=== PATIENT | female | born 1930 | race Caucasian/White ===

== ENCOUNTER 2017-01-26 01:45 | Inpatient (IN) | payer OTHER ==
--- NOTE | 2017-01-26 02:37 | PDOC ---
History of Present Illness - General Stated Complaint: LOW BACK PAIN Time Seen by Provider: 01/26/17 02:31 History Source: Patient Exam Limitations: No Limitations - History of Present Illness Initial Comments: 01/26/17 02:53 87-year-old female with a history of hypertension presents to the emergency department complaining of right sided lumbar paravertebral tenderness. Pain is described as 8/10 dull nonradiating intermittent discomfort. Patient states she slipped and fell 2 days ago when she reached forward to grab her hamper. Patient denies any head injuries, dizziness, lightheadedness, headaches, facial pain, neck pains, chest pain, shortness of breath, abdominal pains, bladder or bowel dysfunction, Antony numbness or tingling sensation. The pain is exacerbated with movement and there are minimal relief at rest. Occurred: reports: this evening Pain Location: reports: abdomen, chest Past History - Past Medical History Allergies/Adverse Reactions: Allergies Allergy/AdvReac Type Severity Reaction Status Date / Time No Known Drug Allergies Allergy Verified 01/26/17 03:06 Home Medications: Ambulatory Orders Aspirin [Baby Aspirin] 81 mg PO DAILY 02/27/11 Amlodipine/Valsartan [Amlodipine-Valsartan 10-160 mg] 1 each PO HS 07/26/15 Atorvastatin Ca [Lipitor] 20 mg PO HS 07/26/15 Cholecalciferol (Vitamin D3) [Vitamin D3 -] 1,000 unit PO HS 07/26/15 Metoprolol Succinate [Toprol Xl -] 25 mg PO HS 07/26/15 Anemia: No Asthma: No Cancer: Yes (LEFT BREAST 1981,RADICAL MASTECTOMY,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;BASAL CELL NOSE) Cardiac Disorders: No CVA: Yes (TIA 2013) COPD: No CHF: No Dementia: No Diabetes: No GI Disorders: No Disorders: No HTN: Yes (2005) Hypercholesterolemia: Yes (2005) Liver Disease: No Seizures: No Thyroid Disease: No - Surgical History Abdominal Surgery: No Appendectomy: No Cardiac Surgery: No Cholecystectomy: No Lung Surgery: No Neurologic Surgery: No Orthopedic Surgery: No - Suicide/Smoking/Psychosocial Hx Smoking History: Never smoked Have you smoked in the past 12 months: No Hx Alcohol Use: No Drug/Substance Use Hx: No Substance Use Type: None Hx Substance Use Treatment: No Review of Systems - Review of Systems Able to Perform ROS?: Yes Comments:: 01/26/17 02:56 CONSTITUTIONAL: Absent: fever, chills, diaphoresis, generalized weakness, malaise, loss of appetite HEENT: Absent: rhinorrhea, nasal congestion, throat pain, throat swelling, difficulty swallowing, mouth swelling, ear pain, eye pain, visual Changes CARDIOVASCULAR: Absent: chest pain, loss of consciousness, palpitations, irregular heart rate, peripheral edema RESPIRATORY: Absent: cough, shortness of breath, dyspnea with exertion, orthopnea, wheezing, stridor, hemoptysis GASTROINTESTINAL: Absent: abdominal pain, abdominal distension, nausea, vomiting, diarrhea, constipation, melena, hematochezia GENITOURINARY: Absent: dysuria, frequency, urgency, hesitancy, hematuria, flank pain, genital pain MUSCULOSKELETAL: Lumbar pain/right para vertebral Absent: myalgia, arthralgia, joint swelling SKIN: Absent: rash, itching, pallor HEMATOLOGIC/IMMUNOLOGIC: Absent: easy bleeding, easy bruising, lymphadenopathy, frequent infections ENDOCRINE: Absent: unexplained weight gain, unexplained weight loss, heat intolerance, cold intolerance NEUROLOGIC: Absent: headache, focal weakness or paresthesias, dizziness, unsteady gait, seizure, mental status changes, bladder or bowel incontinence PSYCHIATRIC: Absent: anxiety, depression, suicidal or homicidal ideation, hallucinations. Is the patient limited Czech proficient: No *Physical Exam - Physical Exam Comments: 01/26/17 02:56 GENERAL: Well developed, well nourished. Awake and alert. No acute distress. HEENT: Normocephalic, atraumatic. PERRLA, EOMI. No conjunctival pallor. Sclera are non- icteric. Moist mucous membranes. Oropharynx is clear. NECK: Supple. Full ROM. No JVD. Carotid pulses 2+ and symmetric, without bruits. No thyromegaly. No lymphadenopathy. CARDIOVASCULAR: Regular rate and rhythm. No murmurs, rubs, or gallops. Distal pulses are 2+ and symmetric. PULMONARY: No evidence of respiratory distress. Lungs clear to auscultation bilaterally. No wheezing, rales or rhonchi. ABDOMINAL: Soft. Non-tender. Non-distended. No rebound or guarding. No organomegaly. Normoactive bowel sounds. MUSCULOSKELETAL Right paravertebral lumbar pain Normal range of motion at all joints. No bony deformities or tenderness. No CVA tenderness. EXTREMITIES: No cyanosis. No clubbing. No edema. No calf tenderness. SKIN: Warm and dry. Normal capillary refill. No rashes. No jaundice. NEUROLOGICAL: Alert, awake, appropriate. Cranial nerves 2-12 intact. No deficits to light touch and temperature in face, upper extremities and lower extremities. No motor deficits in the in face, upper extremities and lower extremities. Normoreflexic in the upper and lower extremities. Normal speech. Toes are down- going bilaterally. Gait is normal without ataxia. PSYCHIATRIC: Cooperative. Good eye contact. Appropriate mood and affect. ED Treatment Course - LABORATORY CBC & Chemistry Diagram: 01/26/17 05:24 01/26/17 05:00 - RADIOLOGY Radiograph Interpretation: 01/26/17 03:00 XRAY; LS spine 01/26/17 04:15 cxr 2v nad Progress Note - Progress Note Progress Note: 0615hrs: Spoke to Dr. Tiffanie Worley. will admit *DC/Admit/Observation/Transfer Diagnosis at time of Disposition: Intractable low back pain - Discharge Dispostion Condition at time of disposition: Guarded Admit: Yes - Referrals Referrals: Ziggy Saunders MD [Primary Care Provider] - - Patient Instructions - Post Discharge Activity
[2017-01-26] MEDS ORDERED: KETOROLAC TROMETHAMINE 30 MG/1 ML VIAL IM ONE (03:22)
[2017-01-26] MEDS ORDERED: KETOROLAC TROMETHAMINE 30 MG/1 ML VIAL ONE (04:16)
[2017-01-26] MEDS ORDERED: morphine CARPU-JECT 8 MG/1 ML DISP.SYRIN IVPUSH ONE (04:35)
[2017-01-26 05:35] LABS: ALBUMIN 3.4 g/dl (3.4-5.0); ANION GAP 10 (8-16); BILIRUBIN,TOTAL 0.8 mg/dL (0.2-1.0); CALCIUM 8.8 mg/dL (8.5-10.1); CO2 24 mmol/L (21-32); GLUCOSE,RANDOM 112 mg/dL (74-106); SGPT/ALT 23 U/L (12-78); TOT PROT 6.8 g/dl (6.4-8.2)
[2017-01-26 05:36] LABS: ALK PHOS 77 U/L (45-117)
[2017-01-26 05:40] LABS: BASO % 0.6 % (0-2.0); EOS % 3.2 % (0-4.5); MCH 31.6 pg (25.7-33.7); MCHC 34.1 g/dl (32.0-36.0); MEAN CELL VOLUME 92.5 fl (80-96); MEAN PLT VOLUME 7.5 fl (7.5-11.1); PLATELET COUNT 138 K/MM3 (134-434); RDW 13.3 % (11.6-15.6); WHITE BLOOD COUNT 5.6 K/mm3 (4.0-10.0)
[2017-01-26 05:45] LABS: SGOT/AST 22 U/L (15-37)
[2017-01-26] MEDS ORDERED: ACETAMINOPHEN 325 MG TABLET (FP) PO PRN (07:52)
[2017-01-26] MEDS ORDERED: HYDROmorphone HCL CARPU-JECT 2 MG/1 ML DISP.SYRIN IM PRN (07:52)
--- NOTE | 2017-01-26 08:56 | HP ---
Admitting History and Physical - Admission History of Present Illness: 87-year-old female with a history of hypertension presents to the emergency department complaining of right sided lumbar paravertebral tenderness. Pain is described as 8/10 dull nonradiating intermittent discomfort. Patient states she slipped and fell 2 days ago when she reached forward to grab her hamper. Patient denies any head injuries, dizziness, lightheadedness, headaches, facial pain, neck pains, chest pain, shortness of breath, abdominal pains, bladder or bowel dysfunction. The pain is exacerbated with movement and there are minimal relief at rest. - Past Medical History Cardiovascular: Yes: HTN, Hyperlipdemia Musculoskeletal: Yes: Osteoarthritis - Smoking History Smoking history: Never smoked Have you smoked in the past 12 months: No - Alcohol/Substance Use Hx Alcohol Use: No Home Medications - Allergies Allergies/Adverse Reactions: Allergies Allergy/AdvReac Type Severity Reaction Status Date / Time No Known Drug Allergies Allergy Verified 01/26/17 03:06 - Home Medications Home Medications: Ambulatory Orders Aspirin [Baby Aspirin] 81 mg PO DAILY 02/27/11 Amlodipine/Valsartan [Amlodipine-Valsartan 10-160 mg] 1 each PO HS 07/26/15 Atorvastatin Ca [Lipitor] 20 mg PO HS 07/26/15 Cholecalciferol (Vitamin D3) [Vitamin D3 -] 1,000 unit PO HS 07/26/15 Metoprolol Succinate [Toprol Xl -] 25 mg PO HS 07/26/15 Review of Systems - Review of Systems Cardiovascular: denies: Chest Pain Respiratory: denies: SOB Gastrointestinal: denies: Abdominal Pain Musculoskeletal: reports: Back Pain Physical Examination Vital Signs: Vital Signs Temperature 98.3 F 01/26/17 07:26 Pulse Rate 62 01/26/17 07:26 Respiratory Rate 20 01/26/17 07:26 Blood Pressure 135/88 01/26/17 07:26 O2 Sat by Pulse Oximetry (%) 98 01/26/17 07:26 Cardiovascular: Yes: Regular Rate and Rhythm Respiratory: Yes: Regular, CTA Bilaterally Gastrointestinal: Yes: Normal Bowel Sounds, Soft Musculoskeletal: Yes: Back Pain, Muscle Weakness (OF LE) Labs: CBC, BMP 01/26/17 05:24 01/26/17 05:00 Imaging - Results X-ray: Report Reviewed ([facility]) Problem List - Problems (1) Compression fracture Assessment/Plan: MRI NEURO CONSULT Code(s): PQJ0373 - (2) HTN (hypertension) Assessment/Plan: Vital Signs Period Temp Pulse Resp BP Sys/Parra Pulse Ox Last 24 Hr 97.7 F-98.3 F 61-85 14-20 135-177/76-88 96-98 Code(s): I10 - ESSENTIAL (PRIMARY) HYPERTENSION (3) Intractable low back pain Assessment/Plan: PAIN MEDS MUSCLE RELAXANT MRI Code(s): M54.5 - LOW BACK PAIN
[2017-01-26] MEDS ORDERED: PT OWN MED DRAWER 7, Y5N ONE (10:52)
[2017-01-26] MEDS: ASPIRIN 81 MG CHEWABLE TABLETS PO SCH (10:56)
[2017-01-26] MEDS: HEPARIN NA (PORCINE) 5,000 UNITS/ML 1ML VIAL SQ SCH ×2 (10:56→21:33)
[2017-01-26 11:49] VITALS: BMI 27.3
[2017-01-26] MEDS: CYCLOBENZAPRINE HCL 10 MG TABLET (FP) PO SCH ×2 (14:09→21:32)
--- NOTE | 2017-01-26 14:44 | CON.NEURO ---
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 She do have stress incontinence and uses diaper. Patient having moderate to severe back pain but no shooting down to legs. She denies any bowel pain. She had xray done and there is no compression fracture. - Past Medical History Cardio/Vascular: Yes: HTN, Hyperlipdemia ...: No Musculoskeletal: Yes: Osteoarthritis - Alcohol/Substance Use Hx Alcohol Use: No - Smoking History Smoking history: Never smoked Have you smoked in the past 12 months: No Home Medications - Allergies Allergies/Adverse Reactions: Allergies Allergy/AdvReac Type Severity Reaction Status Date / Time No Known Drug Allergies Allergy Verified 01/26/17 03:06 - Home Medications Home Medications: Ambulatory Orders Aspirin [Baby Aspirin] 81 mg PO DAILY 02/27/11 Amlodipine/Valsartan [Amlodipine-Valsartan 10-160 mg] 1 each PO HS 07/26/15 Atorvastatin Ca [Lipitor] 20 mg PO HS 07/26/15 Cholecalciferol (Vitamin D3) [Vitamin D3 -] 1,000 unit PO HS 07/26/15 Metoprolol Succinate [Toprol Xl -] 25 mg PO HS 07/26/15 Physical Exam-Neuro Vital Signs: Vital Signs Temperature 98.2 F 01/26/17 11:30 Pulse Rate 85 01/26/17 11:30 Respiratory Rate 18 01/26/17 11:30 Blood Pressure 145/85 01/26/17 11:30 O2 Sat by Pulse Oximetry (%) 96 01/26/17 11:30 Labs: CBC, BMP 01/26/17 05:24 01/26/17 05:00 Imaging - Results X-ray: Report Reviewed Assessment/Plan Right sided lower back pain x 3 days HPI 87 year old female history of Htn, she was doing laundry and she leaned over to bean picker something and felt severe electric like sensation in her neck and it jolted her and she fell backward and hurting her back. She do have stress incontinence and uses diaper. Patient having moderate to severe back pain but no shooting down to legs. She denies any bowel pain. She had xray done and there is no compression fracture. PMH - htn, hyperlipidemia NKDA ROS,FH,SH-- Reviewed and non contributory Home medication Aspirin [Baby Aspirin] 81 mg PO DAILY 02/27/11 Amlodipine/Valsartan [Amlodipine-Valsartan 10-160 mg] 1 each PO HS 07/26/15 Atorvastatin Ca [Lipitor] 20 mg PO HS 07/26/15 Cholecalciferol (Vitamin D3) [Vitamin D3 -] 1,000 unit PO HS 07/26/15 Metoprolol Succinate [Toprol Xl -] 25 mg PO HS 07/26/15 Neurological Examination Alert oriented x 3 speech is normal CN all intact Motor 5/5 all four extremity there is limited knee extension due to pain but her strength is 5/5 sensation is normal reflex is normal xray reviewed Assesment Acute back pain /Paraspinal pain due to fall, neurological exam is normal and there is tenderness in back and paraspinal area. xray there is no fracture Plan- continue muscle relaxant and nsaid - mri planned , concur with mri of l spine - suggest to PT - would continue to follow Thank you so much Arnulfo Woodward MD
[2017-01-26] MEDS: ATORVASTATIN CA 20 MG TABLET (FP) PO SCH (21:32)
[2017-01-26] MEDS: METOPROLOL SUCCINATE 25 MG TAB.SR.24H (FP) PO SCH (21:33)
[2017-01-26] MEDS: amLODIPine BESYLATE 10 MG TABLET (FP) PO SCH (21:33)
[2017-01-26] MEDS: VALSARTAN 160 MG TABLET (UD) PO SCH (21:33)
[2017-01-26] MEDS: CHOLECALCIFEROL (VITAMIN D3) 1,000 UNIT TABLET (FP) PO SCH (21:33)
--- NOTE | 2017-01-26 21:33 | EKG ---
Test Reason : Blood Pressure : / mmHG Vent. Rate : 059 BPM Atrial Rate : 059 BPM P-R Int : 160 ms QRS Dur : 092 ms QT Int : 462 ms P-R-T Axes : 016 -13 067 degrees QTc Int : 457 ms SINUS BRADYCARDIA MINIMAL CRITERIA FOR LEFT VENTRICULAR HYPERTROPHY EARLY R WAVE PROGRESSION WHEN COMPARED WITH ECG OF 02-MAR-2011 19:53, NO SIGNIFICANT CHANGE WAS FOUND Confirmed by NEO BAILEY, KIZZY ([id number]) on 01/26/2017 9:32:30 PM Referred By: Confirmed By:KIZZY LARSON MD
[2017-01-26] MEDS ORDERED: CHOLECALCIFEROL (VITAMIN D3) 1,000 UNIT TABLET (FP) PO SCH (22:00)
[2017-01-26] MEDS ORDERED: amLODIPine BESYLATE 10 MG TABLET (FP) PO SCH (22:00)
[2017-01-26] MEDS ORDERED: VALSARTAN PO SCH (22:00)
[2017-01-26] MEDS ORDERED: METOPROLOL SUCCINATE 25 MG TAB.SR.24H (FP) PO SCH (22:00)
[2017-01-26] MEDS ORDERED: [UNRECOGNIZED DRUG - OTHER] PO SCH (22:00)
[2017-01-26] MEDS ORDERED: AMLODIPINE PO SCH (22:00)
[2017-01-26] MEDS ORDERED: VALSARTAN 160 MG TABLET (UD) PO SCH (22:00)
[2017-01-27] MEDS: CYCLOBENZAPRINE HCL 10 MG TABLET (FP) PO SCH ×3 (05:32→21:20)
[2017-01-27 08:11] LABS: BASO % 0.6 % (0-2.0); MCH 30.8 pg (25.7-33.7); MCHC 33.6 g/dl (32.0-36.0); MEAN CELL VOLUME 91.6 fl (80-96); MEAN PLT VOLUME 7.3 fl (7.5-11.1); NEUT % 56.6 % (42.8-82.8); PLATELET COUNT 158 K/MM3 (134-434); RDW 13.4 % (11.6-15.6); WHITE BLOOD COUNT 5.2 K/mm3 (4.0-10.0)
[2017-01-27 08:39] LABS: ALBUMIN 3.1 g/dl (3.4-5.0); ANION GAP 9 (8-16); BILIRUBIN,TOTAL 0.7 mg/dL (0.2-1.0); CALCIUM 8.7 mg/dL (8.5-10.1); CO2 24 mmol/L (21-32); GLUCOSE,RANDOM 89 mg/dL (74-106); SGOT/AST 14 U/L (15-37); SGPT/ALT 20 U/L (12-78); TOT PROT 6.2 g/dl (6.4-8.2)
[2017-01-27 08:40] LABS: ALK PHOS 68 U/L (45-117)
[2017-01-27] MEDS: VALSARTAN 160 MG TABLET (UD) PO SCH (10:38)
[2017-01-27] MEDS: CHOLECALCIFEROL (VITAMIN D3) 1,000 UNIT TABLET (FP) PO SCH (10:38)
[2017-01-27] MEDS: HEPARIN NA (PORCINE) 5,000 UNITS/ML 1ML VIAL SQ SCH ×2 (10:39→21:21)
[2017-01-27] MEDS: METOPROLOL SUCCINATE 25 MG TAB.SR.24H (FP) PO SCH (10:39)
[2017-01-27] MEDS: amLODIPine BESYLATE 10 MG TABLET (FP) PO SCH (10:39)
[2017-01-27] MEDS: ASPIRIN 81 MG CHEWABLE TABLETS PO SCH (10:39)
--- NOTE | 2017-01-27 11:55 | PN ---
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 She do have stress incontinence and uses diaper. Patient having moderate to severe back pain but no shooting down to legs. She denies any bowel pain. Her pain is getting better, and she had mri of L spine and L2 showed subacute compression fracture Neurological Examination Alert oriented x 3 speech is normal CN all intact Motor 5/5 all four extremity there is limited knee extension due to pain but her strength is 5/5 sensation is normal reflex is normal ( Neuro exam is normal and unchanged) xray reviewed MRI of L spine reviewed Assesment Acute back pain /Paraspinal pain due to fall, neurological exam is normal and there is tenderness in back and paraspinal area. MRI of L spine show subacute fracture Plan- She has improved, and Muslce relaxant caused her to have severe nausea Advise to continue NSAID prn, Neurosurgery consult for compression fracture. - suggest to PT Thank you so much Arnulfo Woodward MD
--- NOTE | 2017-01-27 14:29 | PN ---
Progress Note, Physician History of Present Illness: LESS PAIN - Current Medication List Current Medications: Active Medications Acetaminophen (Tylenol -) 650 mg PO Q4H PRN PRN Reason: FEVER OR PAIN Amlodipine Besylate (Norvasc -) 10 mg PO DAILY [facility] Last Admin: 01/27/17 10:39 Dose: 10 mg Aspirin (Asa -) 81 mg PO DAILY [facility] Last Admin: 01/27/17 10:39 Dose: 81 mg Atorvastatin Calcium (Lipitor -) 20 mg PO HS [facility] Last Admin: 01/26/17 21:32 Dose: 20 mg Cholecalciferol (Vitamin D3 -) 1,000 unit PO DAILY [facility] Last Admin: 01/27/17 10:38 Dose: 1,000 unit Cyclobenzaprine HCl (Flexeril -) 5 mg PO TID [facility] Last Admin: 01/27/17 05:32 Dose: 5 mg Heparin Sodium (Porcine) (Heparin -) 5,000 unit SQ BID [facility] Last Admin: 01/27/17 10:39 Dose: 5,000 unit Hydromorphone HCl (Dilaudid Injection -) 0.5 mg IM Q4H PRN PRN Reason: PAIN Last Admin: 01/26/17 12:26 Dose: 0.5 mg Metoprolol Succinate (Toprol Xl -) 25 mg PO DAILY [facility] Last Admin: 01/27/17 10:39 Dose: 25 mg Valsartan (Diovan -) 160 mg PO DAILY [facility] Last Admin: 01/27/17 10:38 Dose: 160 mg - Objective Vital Signs: Vital Signs Temperature 97.9 F 01/27/17 07:53 Pulse Rate 62 01/27/17 07:53 Respiratory Rate 18 01/27/17 07:53 Blood Pressure 129/83 01/27/17 07:53 O2 Sat by Pulse Oximetry (%) 97 01/27/17 08:43 Cardiovascular: Yes: Regular Rate and Rhythm Respiratory: Yes: Regular, CTA Bilaterally Gastrointestinal: Yes: Normal Bowel Sounds, Soft Labs: CBC, BMP 01/27/17 07:00 01/27/17 07:00 Problem List - Problems (1) Compression fracture Assessment/Plan: MRI NOTED--SUBACUTE COMPRESSION FX NEURO CONSULT Code(s): [id number] - (2) HTN (hypertension) Assessment/Plan: Vital Signs Period Temp Pulse Resp BP Sys/Parra Pulse Ox Last 24 Hr 97.7 F-98.3 F 61-85 14-20 135-177/76-88 96-98 Code(s): I10 - ESSENTIAL (PRIMARY) HYPERTENSION (3) Intractable low back pain Assessment/Plan: PAIN MEDS MUSCLE RELAXANT MRI Code(s): M54.5 - LOW BACK PAIN
[2017-01-27] MEDS: ATORVASTATIN CA 20 MG TABLET (FP) PO SCH (21:20)
--- NOTE | 2017-01-27 23:47 | CONSULT ---
Consult - text type - Consultation Consultation Note: Neurosurgery Consult Elma Aguayo is an 87 year old female who was in her relative state of good health until 3 days ago when she suddenly felt a sharp pain in her neck while working in her laundry room. She then fell and injured her back. MRI demonstrates a fracture through the body of L2. The patient has not had recent imaging of her neck. 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 The patoemt is Neurologically nonfocal and her Lumbar fracture can likely be managed with a TLSO for 3 months, although, I am concerned that she has significant positive sagittal balance. Once she has the brace, she can participate with Physical Therapy and she should have standing Lumbar radiographs to assess her fracture in the brace. Her Cervical spine should be evaluated with MRI Cervical without contrast.
[2017-01-28] MEDS: CYCLOBENZAPRINE HCL 10 MG TABLET (FP) PO SCH ×3 (06:20→21:14)
--- NOTE | 2017-01-28 08:57 | PN ---
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 She do have stress incontinence and uses diaper. Patient having moderate to severe back pain but no shooting down to legs. She denies any bowel pain. Her pain is getting better, and she had mri of L spine and L2 showed subacute compression fracture Neurological Examination Alert oriented x 3 speech is normal CN all intact Motor 5/5 all four extremity there is limited knee extension due to pain but her strength is 5/5 sensation is normal reflex is normal ( Neuro exam is normal and unchanged) xray reviewed MRI of L spine reviewed Assesment Acute back pain /Paraspinal pain due to fall, neurological exam is normal and there is tenderness in back and paraspinal area. MRI of L spine show subacute fracture , Neurosurgery consult appreciated . Plan-PT and take NSAID prn - would see her PRN Thank you so much Arnulfo Woodward MD
[2017-01-28] MEDS: amLODIPine BESYLATE 10 MG TABLET (FP) PO SCH (10:32)
[2017-01-28] MEDS: METOPROLOL SUCCINATE 25 MG TAB.SR.24H (FP) PO SCH (10:32)
[2017-01-28] MEDS: CHOLECALCIFEROL (VITAMIN D3) 1,000 UNIT TABLET (FP) PO SCH (10:32)
[2017-01-28] MEDS: ASPIRIN 81 MG CHEWABLE TABLETS PO SCH (10:32)
[2017-01-28] MEDS: HEPARIN NA (PORCINE) 5,000 UNITS/ML 1ML VIAL SQ SCH ×2 (10:32→21:13)
[2017-01-28] MEDS: VALSARTAN 160 MG TABLET (UD) PO SCH (10:32)
--- NOTE | 2017-01-28 14:24 | PN ---
Progress Note (short form) - Note Progress Note: Patient remains Neurologically stable Has pain with attempts to mobilize TLSO brace placed during my visit today Await MRI Cervical and standing films with brace Physical Therapy once brace in place GI/DVT prophylaxis
--- NOTE | 2017-01-28 14:56 | PN ---
Progress Note, Physician Chief Complaint: Intractable back pain History of Present Illness: NAD, sitting in chair, going to PT - Current Medication List Current Medications: Active Medications Acetaminophen (Tylenol -) 650 mg PO Q4H PRN PRN Reason: FEVER OR PAIN Amlodipine Besylate (Norvasc -) 10 mg PO DAILY [facility] Last Admin: 01/28/17 10:32 Dose: 10 mg Aspirin (Asa -) 81 mg PO DAILY [facility] Last Admin: 01/28/17 10:32 Dose: 81 mg Atorvastatin Calcium (Lipitor -) 20 mg PO HS [facility] Last Admin: 01/27/17 21:20 Dose: 20 mg Cholecalciferol (Vitamin D3 -) 1,000 unit PO DAILY [facility] Last Admin: 01/28/17 10:32 Dose: 1,000 unit Cyclobenzaprine HCl (Flexeril -) 5 mg PO TID [facility] Last Admin: 01/28/17 06:20 Dose: 5 mg Heparin Sodium (Porcine) (Heparin -) 5,000 unit SQ BID [facility] Last Admin: 01/28/17 10:32 Dose: 5,000 unit Hydromorphone HCl (Dilaudid Injection -) 0.5 mg IM Q4H PRN PRN Reason: PAIN Last Admin: 01/26/17 12:26 Dose: 0.5 mg Metoprolol Succinate (Toprol Xl -) 25 mg PO DAILY [facility] Last Admin: 01/28/17 10:32 Dose: 25 mg Valsartan (Diovan -) 160 mg PO DAILY [facility] Last Admin: 01/28/17 10:32 Dose: 160 mg - Objective Vital Signs: Vital Signs Temperature 98.0 F 01/28/17 08:09 Pulse Rate 65 01/28/17 08:09 Respiratory Rate 16 01/28/17 08:09 Blood Pressure 147/60 01/28/17 08:09 O2 Sat by Pulse Oximetry (%) 97 01/28/17 10:00 Constitutional: Yes: Well Nourished, No Distress, Calm Cardiovascular: Yes: Regular Rate and Rhythm Respiratory: Yes: Regular Musculoskeletal: Yes: WNL Extremities: Yes: WNL Edema: No Peripheral Pulses WNL: Yes Neurological: Yes: Alert, Oriented Psychiatric: Yes: Alert, Oriented Labs: CBC, BMP 01/27/17 07:00 01/27/17 07:00 Problem List - Problems (1) Compression fracture Assessment/Plan: -seen by neurology and neurosurgery -seen by PT walked 75 ft with light 1 person guarding -pain improved -lives at home alone with her daughter on the first floor -TLSO brace for 3 months Code(s): [id number] - (2) HTN (hypertension) Assessment/Plan: controlled at the moment Code(s): I10 - ESSENTIAL (PRIMARY) HYPERTENSION (3) Intractable low back pain Assessment/Plan: -acetaminophen, ibuprofen and oxycodone -would avoid discharging her on oxycodone -possible d/c in AM with VNS Code(s): M54.5 - LOW BACK PAIN Assessment/Plan see problem list
[2017-01-28] MEDS ORDERED: oxyCODONE HCL 5 MG TABLET PO PRN (15:16)
[2017-01-28] MEDS ORDERED: ACETAMINOPHEN 325 MG TABLET (FP) PO PRN (15:16)
[2017-01-28] MEDS: ATORVASTATIN CA 20 MG TABLET (FP) PO SCH (21:14)
[2017-01-28] MEDS: DOCUSATE SODIUM 100 MG CAPSULE (FP) PO SCH (21:14)
[2017-01-29] MEDS: CYCLOBENZAPRINE HCL 10 MG TABLET (FP) PO SCH ×4 (06:28→22:19)
[2017-01-29] MEDS: IBUPROFEN 400 MG TABLET (FP) PO PRN (09:54)
[2017-01-29] MEDS: CHOLECALCIFEROL (VITAMIN D3) 1,000 UNIT TABLET (FP) PO SCH (09:54)
[2017-01-29] MEDS: METOPROLOL SUCCINATE 25 MG TAB.SR.24H (FP) PO SCH (09:55)
[2017-01-29] MEDS: amLODIPine BESYLATE 10 MG TABLET (FP) PO SCH (09:55)
[2017-01-29] MEDS: HEPARIN NA (PORCINE) 5,000 UNITS/ML 1ML VIAL SQ SCH ×2 (09:55→22:19)
[2017-01-29] MEDS: VALSARTAN 160 MG TABLET (UD) PO SCH (09:55)
[2017-01-29] MEDS: DOCUSATE SODIUM 100 MG CAPSULE (FP) PO SCH ×2 (09:55→22:19)
[2017-01-29] MEDS: ASPIRIN 81 MG CHEWABLE TABLETS PO SCH (09:55)
--- NOTE | 2017-01-29 09:55 | PN ---
Progress Note, Physician Chief Complaint: Intractable back pain History of Present Illness: NAD, sitting in chair, putting on a TLSO brace outpatient might be an issue, she expresses hesitancy MRI cervical spine pending ain improved, controlled on flexaril and acetaminophen - Current Medication List Current Medications: Active Medications Acetaminophen (Tylenol -) 650 mg PO Q4H PRN PRN Reason: FEVER OR PAIN Acetaminophen (Tylenol -) 325 mg PO Q6H PRN PRN Reason: PAIN Amlodipine Besylate (Norvasc -) 10 mg PO DAILY [facility] Last Admin: 01/28/17 10:32 Dose: 10 mg Aspirin (Asa -) 81 mg PO DAILY [facility] Last Admin: 01/28/17 10:32 Dose: 81 mg Atorvastatin Calcium (Lipitor -) 20 mg PO HS [facility] Last Admin: 01/28/17 21:14 Dose: 20 mg Cholecalciferol (Vitamin D3 -) 1,000 unit PO DAILY [facility] Last Admin: 01/28/17 10:32 Dose: 1,000 unit Cyclobenzaprine HCl (Flexeril -) 5 mg PO TID [facility] Last Admin: 01/29/17 06:28 Dose: 5 mg Docusate Sodium (Colace -) 100 mg PO BID [facility] Last Admin: 01/28/17 21:14 Dose: 100 mg Heparin Sodium (Porcine) (Heparin -) 5,000 unit SQ BID [facility] Last Admin: 01/28/17 21:13 Dose: 5,000 unit Ibuprofen (Motrin -) 400 mg PO Q6H PRN PRN Reason: PAIN Metoprolol Succinate (Toprol Xl -) 25 mg PO DAILY [facility] Last Admin: 01/28/17 10:32 Dose: 25 mg Oxycodone HCl (Roxicodone -) 5 mg PO Q6H PRN PRN Reason: PAIN Valsartan (Diovan -) 160 mg PO DAILY [facility] Last Admin: 01/28/17 10:32 Dose: 160 mg - Objective Vital Signs: Vital Signs Temperature 97.9 F 01/29/17 08:00 Pulse Rate 65 01/29/17 08:00 Respiratory Rate 18 01/29/17 08:00 Blood Pressure 146/75 01/29/17 08:00 O2 Sat by Pulse Oximetry (%) 97 01/28/17 21:00 Constitutional: Yes: Well Nourished, No Distress, Calm Cardiovascular: Yes: Regular Rate and Rhythm Respiratory: Yes: Regular Musculoskeletal: Yes: Back Pain Extremities: Yes: WNL Edema: No Peripheral Pulses WNL: Yes Neurological: Yes: Alert, Oriented Psychiatric: Yes: Alert, Oriented Labs: CBC, BMP 01/27/17 07:00 01/27/17 07:00 Problem List - Problems (1) Compression fracture Assessment/Plan: -seen by neurology and neurosurgery -seen by PT walked 75 ft with light 1 person guarding -pain improved -lives at home alone with her daughter on the first floor -TLSO brace for 3 months recommended Code(s): [id number] - (2) HTN (hypertension) Assessment/Plan: controlled at the moment Code(s): I10 - ESSENTIAL (PRIMARY) HYPERTENSION (3) Intractable low back pain Assessment/Plan: -acetaminophen, ibuprofen and oxycodone -would avoid discharging her on oxycodone -possible d/c in AM with VNS Code(s): M54.5 - LOW BACK PAIN Assessment/Plan see problem list
--- NOTE | 2017-01-29 10:45 | PN ---
Progress Note (short form) - Note Progress Note: Patient seen in Physical Therapy gym with TLSO fitted properly Patient continues to complain of pain MRI Cervical pending Standing plain films in TLSO pending
--- NOTE | 2017-01-29 14:45 | PN ---
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 She do have stress incontinence and uses diaper. Patient having moderate to severe back pain but no shooting down to legs. She denies any bowel pain. Her pain is getting better, and she had mri of L spine and L2 showed subacute compression fracture, see by neurosurgeon and was given [place] brace. She did not tolerate well. Neurological Examination Alert oriented x 3 speech is normal CN all intact Motor 5/5 all four extremity there is limited knee extension due to pain but her strength is 5/5 sensation is normal reflex is normal ( Neuro exam is normal and unchanged) xray reviewed MRI of L spine reviewed MRI of C Spine is pending as suggested by Neurosurgeon A/P Acute back pain /Paraspinal pain due to fall, neurological exam is normal and there is tenderness in back and paraspinal area. MRI of L spine show subacute fracture , she was given lumbar brace and she find it difficult ot wear waiting for C spine mri PT and NSAID prn Thank you so much Arnulfo Woodward MD
[2017-01-29] MEDS: ATORVASTATIN CA 20 MG TABLET (FP) PO SCH (22:19)
[2017-01-30] MEDS: CYCLOBENZAPRINE HCL 10 MG TABLET (FP) PO SCH ×2 (05:35→14:55)
[2017-01-30] MEDS: IBUPROFEN 400 MG TABLET (FP) PO PRN (08:15)
--- NOTE | 2017-01-30 08:47 | PN ---
Progress Note (short form) - Note Progress Note: 87 year old female history of Htn, she was doing laundry and she leaned over to pickle solution maker something and felt severe electric like sensation in her neck and it jolted her and she fell backward and hurting her back. She do have stress incontinence and uses diaper. Patient having moderate to severe back pain but no shooting down to legs. Patient could not tolerate lumbar brace. While giving her sponge bath, she had pain on right paraspinal area, she was given flexeril this morning. MRI of c spine result cam eback showed cord compression Neurological Examination Alert oriented x 3 speech is normal CN all intact Motor 5/5 all four extremity there is limited knee extension due to pain but her strength is 5/5 sensation is normal reflex is normal Neurological exam is unchanged , given there is cord compression on cervical spine mri xray reviewed MRI of L spine reviewed MRI of C Spine result reviewed showed cord compression A/P 1.Acute back pain /Paraspinal pain due to fall, neurological exam is normal and there is tenderness in back and paraspinal area. MRI of L spine show subacute fracture , she was given lumbar brace and she is tolerating brace. Nurse was advise to give her motrin as she complaing of pain 2. Neurosurgery to follow regarding cord compression. PT and NSAID prn Thank you so much Arnulfo Woodward MD
[2017-01-30] MEDS: DOCUSATE SODIUM 100 MG CAPSULE (FP) PO SCH ×2 (10:18→21:54)
[2017-01-30] MEDS: HEPARIN NA (PORCINE) 5,000 UNITS/ML 1ML VIAL SQ SCH ×2 (10:18→21:55)
[2017-01-30] MEDS: METOPROLOL SUCCINATE 25 MG TAB.SR.24H (FP) PO SCH (10:18)
[2017-01-30] MEDS: ASPIRIN 81 MG CHEWABLE TABLETS PO SCH (10:18)
[2017-01-30] MEDS: VALSARTAN 160 MG TABLET (UD) PO SCH (10:18)
[2017-01-30] MEDS: CHOLECALCIFEROL (VITAMIN D3) 1,000 UNIT TABLET (FP) PO SCH (10:18)
[2017-01-30] MEDS: amLODIPine BESYLATE 10 MG TABLET (FP) PO SCH (10:18)
--- NOTE | 2017-01-30 14:43 | PN ---
Progress Note, Physician Chief Complaint: Intractable back pain History of Present Illness: NAD, sitting in chair, putting on a TLSO brace outpatient might be an issue, she expresses hesitancy, unable to tolerate MRI cervical spine shows cord compression, may need surgical intervention, Neurosurgery to discuss with pt pain improved, controlled on flexaril and acetaminophen - Current Medication List Current Medications: Active Medications Acetaminophen (Tylenol -) 650 mg PO Q4H PRN PRN Reason: FEVER OR PAIN Acetaminophen (Tylenol -) 325 mg PO Q6H PRN PRN Reason: PAIN Amlodipine Besylate (Norvasc -) 10 mg PO DAILY [facility] Last Admin: 01/30/17 10:18 Dose: 10 mg Aspirin (Asa -) 81 mg PO DAILY [facility] Last Admin: 01/30/17 10:18 Dose: 81 mg Atorvastatin Calcium (Lipitor -) 20 mg PO HS [facility] Last Admin: 01/29/17 22:19 Dose: 20 mg Cholecalciferol (Vitamin D3 -) 1,000 unit PO DAILY [facility] Last Admin: 01/30/17 10:18 Dose: 1,000 unit Cyclobenzaprine HCl (Flexeril -) 5 mg PO TID [facility] Last Admin: 01/30/17 05:35 Dose: 5 mg Docusate Sodium (Colace -) 100 mg PO BID [facility] Last Admin: 01/30/17 10:18 Dose: 100 mg Heparin Sodium (Porcine) (Heparin -) 5,000 unit SQ BID [facility] Last Admin: 01/30/17 10:18 Dose: 5,000 unit Ibuprofen (Motrin -) 400 mg PO Q6H PRN PRN Reason: PAIN Last Admin: 01/30/17 08:15 Dose: 400 mg Metoprolol Succinate (Toprol Xl -) 25 mg PO DAILY [facility] Last Admin: 01/30/17 10:18 Dose: 25 mg Valsartan (Diovan -) 160 mg PO DAILY [facility] Last Admin: 01/30/17 10:18 Dose: 160 mg - Objective Vital Signs: Vital Signs Temperature 98.0 F 01/30/17 10:15 Pulse Rate 73 01/30/17 10:15 Respiratory Rate 18 01/30/17 10:15 Blood Pressure 130/62 01/30/17 10:15 O2 Sat by Pulse Oximetry (%) 98 01/29/17 21:00 Constitutional: Yes: Well Nourished, No Distress, Calm Cardiovascular: Yes: Regular Rate and Rhythm Respiratory: Yes: Regular Musculoskeletal: Yes: Back Pain Extremities: Yes: WNL Edema: No Peripheral Pulses WNL: Yes Neurological: Yes: Alert, Oriented Psychiatric: Yes: Alert, Oriented Labs: CBC, BMP 01/27/17 07:00 01/27/17 07:00 Problem List - Problems (1) Compression fracture Assessment/Plan: -seen by neurology and neurosurgery -seen by PT walked 75 ft with light 1 person guarding -pain improved -lives at home alone with her daughter on the first floor -TLSO brace for 3 months recommended Code(s): [id number] - (2) HTN (hypertension) Assessment/Plan: controlled at the moment Code(s): I10 - ESSENTIAL (PRIMARY) HYPERTENSION (3) Intractable low back pain Assessment/Plan: -intermittent pain feeling like electric current down her right leg -trial of gabapentin Code(s): M54.5 - LOW BACK PAIN (4) Cervical spinal cord compression Assessment/Plan: -neurosurgery discussed with pt -pt is unsure at this time, is afraid of recovery period Code(s): G95.20 - UNSPECIFIED CORD COMPRESSION Assessment/Plan see problem list
--- NOTE | 2017-01-30 17:24 | PN ---
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 The patient also has acute disc herniations at C45, C56 & C67 which severely narrow the cervical spinal canal and cause further cord compression with associated T2 signal change. The patient presented after a fall at home which followed a severe cervical pain and may be the events surrounding her acute disc herniations. She has good strength and only minimal numbness and tingling in her hands despite a fairly impressive Cervical MRI. I am concerned that she is at risk of further disc herniation or cord injury with minimal movements of her neck. From the standpoint of her imaging and clinical scenario, surgical intervention (decompresion and fusion) would be appropriate considerations. Her age and relative medical condition as well as her relatively mild current symptomatology from the neck would suggest against intervention. I had a long discussion with the patient concerning the risks, benefits and alternatives to Cervical decompression and fusion in great detail. I explained ventral approaches such as 1-3 level ACDF and corpectomies as well as dorsal procedures such as C2-7 laminectomies and fusion as well as combined procedures. The risks included, but were not limited to: , coma, paralysis , bleeding, infection, CSF leakage possibly requiring spinal drainage or additional surgery, failure to fuse, instrumentation migration/malposition/ malfunction and the need for additional surgery. I explained that she might remain well without intervention, however, the risk of devastating spinal injury is not trivial. All questions were answered. I offered her the option of seeking another opinion or another surgeon. The patient will contemplate her options and we will again discuss treatment possibilities after I review her medical condition and perioperative risks with Dr. Saunders and his team. In the interim, a rigid cervical collar should afford her some comfort. She is not satisfied with the TLSO for her L2 fracture and I suggest an [place] Quickdraw contour for management of this fracture which is currently her primary focus.
[2017-01-30] MEDS: POLYETHYLENE GLYCOL 3350 119 GM BTL PO SCH (17:30)
[2017-01-30] MEDS: GABAPENTIN 100 MG CAPSULE (FP) PO SCH ×2 (17:30→21:55)
[2017-01-30] MEDS: CYCLOBENZAPRINE HCL 10 MG TABLET (FP) PO PRN (21:54)
[2017-01-30] MEDS: ATORVASTATIN CA 20 MG TABLET (FP) PO SCH (21:55)
[2017-01-31] MEDS: GABAPENTIN 100 MG CAPSULE (FP) PO SCH ×3 (06:17→22:00)
--- NOTE | 2017-01-31 09:08 | PN ---
Progress Note (short form) - Note Progress Note: 87 year old female history of Htn, she was doing laundry and she leaned over to excelsior picker something and felt severe electric like sensation in her neck and it jolted her and she fell backward and hurting her back. She do have stress incontinence and uses diaper. Patient having moderate to severe back pain but no shooting down to legs. Patient could not tolerate lumbar brace. While giving her sponge bath, she had pain on right paraspinal area, she was given flexeril this morning. MRI of c spine result cam eback showed cord compression Neurological Examination Alert oriented x 3 speech is normal CN all intact Motor 5/5 all four extremity there is limited knee extension due to pain but her strength is 5/5 sensation is normal reflex is normal Neurological exam is unchanged , given there is cord compression on cervical spine mri xray reviewed MRI of L spine reviewed MRI of C Spine result reviewed showed cord compression A/P 1.Acute back pain /Paraspinal pain due to fall, neurological exam is normal and there is tenderness in back and paraspinal area. MRI of L spine show subacute fracture , continue nsaid and muscle relaxant. Pain is better than yesterday. Activity seems to bring pain 2. Cx cord compression on MRI, clinically she is stable and there is no motor weakness or sensory level. Neurosurgery note appreciated and Patient willing to undergo surgery . Please feel free to call me if you have any question. Thank you so much Arnulfo Woodward MD
--- NOTE | 2017-01-31 10:04 | PN ---
Progress Note, Physician Chief Complaint: Intractable back pain History of Present Illness: NAD, sitting in chair, putting on a TLSO brace outpatient might be an issue, she expresses hesitancy, unable to tolerate- would replace it with corset MRI cervical spine shows cord compression, pt agrees to surgical intervention pain improved on gabapentin, also on flexaril PRN and acetaminophen - Current Medication List Current Medications: Active Medications Acetaminophen (Tylenol -) 650 mg PO Q4H PRN PRN Reason: FEVER OR PAIN Acetaminophen (Tylenol -) 325 mg PO Q6H PRN PRN Reason: PAIN Amlodipine Besylate (Norvasc -) 10 mg PO DAILY [facility] Last Admin: 01/30/17 10:18 Dose: 10 mg Aspirin (Asa -) 81 mg PO DAILY [facility] Last Admin: 01/30/17 10:18 Dose: 81 mg Atorvastatin Calcium (Lipitor -) 20 mg PO HS [facility] Last Admin: 01/30/17 21:55 Dose: 20 mg Cholecalciferol (Vitamin D3 -) 1,000 unit PO DAILY [facility] Last Admin: 01/30/17 10:18 Dose: 1,000 unit Cyclobenzaprine HCl (Flexeril -) 5 mg PO TID PRN PRN Reason: BACK PAIN Last Admin: 01/30/17 21:54 Dose: 5 mg Docusate Sodium (Colace -) 100 mg PO BID [facility] Last Admin: 01/30/17 21:54 Dose: 100 mg Gabapentin (Neurontin -) 100 mg PO TID [facility] Last Admin: 01/31/17 06:17 Dose: 100 mg Heparin Sodium (Porcine) (Heparin -) 5,000 unit SQ BID [facility] Last Admin: 01/30/17 21:55 Dose: 5,000 unit Ibuprofen (Motrin -) 400 mg PO Q6H PRN PRN Reason: PAIN Last Admin: 01/30/17 08:15 Dose: 400 mg Metoprolol Succinate (Toprol Xl -) 25 mg PO DAILY [facility] Last Admin: 01/30/17 10:18 Dose: 25 mg Polyethylene Glycol (Miralax (For Daily Use) -) 17 gm PO DAILY [facility] Last Admin: 01/30/17 17:30 Dose: Not Given Valsartan (Diovan -) 160 mg PO DAILY [facility] Last Admin: 01/30/17 10:18 Dose: 160 mg - Objective Vital Signs: Vital Signs Temperature 97.9 F 01/31/17 08:00 Pulse Rate 59 L 01/31/17 08:00 Respiratory Rate 18 01/31/17 08:00 Blood Pressure 137/62 01/31/17 08:00 O2 Sat by Pulse Oximetry (%) 98 01/30/17 20:17 Constitutional: Yes: Well Nourished, No Distress, Calm Cardiovascular: Yes: Regular Rate and Rhythm Respiratory: Yes: Regular Gastrointestinal: Yes: WNL Musculoskeletal: Yes: Back Pain Extremities: Yes: WNL Edema: No Peripheral Pulses WNL: Yes Neurological: Yes: Alert, Oriented Psychiatric: Yes: Alert, Oriented Labs: CBC, BMP 01/27/17 07:00 01/27/17 07:00 Problem List - Problems (1) Compression fracture Assessment/Plan: -seen by neurology and neurosurgery -seen by PT walked 75 ft with light 1 person guarding -pain improved -lives at home alone with her daughter on the first floor -TLSO brace for 3 months recommended- would replace it with corset Code(s): [id number] - (2) HTN (hypertension) Assessment/Plan: controlled at the moment Code(s): I10 - ESSENTIAL (PRIMARY) HYPERTENSION (3) Intractable low back pain Assessment/Plan: -intermittent pain feeling like electric current down her right leg -tolerating of gabapentin -haven't used muscle relaxer since last evening Code(s): M54.5 - LOW BACK PAIN (4) Cervical spinal cord compression Assessment/Plan: -neurosurgery discussed with pt -pt is unsure at this time, is afraid of recovery period -clincally stable Code(s): G95.20 - UNSPECIFIED CORD COMPRESSION Assessment/Plan see problem list
[2017-01-31] MEDS ORDERED: PT OWN MED DRAWER 7, Y5N ONE (10:50)
[2017-01-31] MEDS: CHOLECALCIFEROL (VITAMIN D3) 1,000 UNIT TABLET (FP) PO SCH (10:52)
[2017-01-31] MEDS: amLODIPine BESYLATE 10 MG TABLET (FP) PO SCH (10:52)
[2017-01-31] MEDS: VALSARTAN 160 MG TABLET (UD) PO SCH (10:52)
[2017-01-31] MEDS: ASPIRIN 81 MG CHEWABLE TABLETS PO SCH (10:52)
[2017-01-31] MEDS: DOCUSATE SODIUM 100 MG CAPSULE (FP) PO SCH ×2 (10:52→22:00)
[2017-01-31] MEDS: HEPARIN NA (PORCINE) 5,000 UNITS/ML 1ML VIAL SQ SCH ×3 (10:53→22:06)
[2017-01-31] MEDS: METOPROLOL SUCCINATE 25 MG TAB.SR.24H (FP) PO SCH (10:53)
[2017-01-31] MEDS: POLYETHYLENE GLYCOL 3350 119 GM BTL PO SCH (10:53)
[2017-01-31] MEDS: CYCLOBENZAPRINE HCL 10 MG TABLET (FP) PO PRN (13:18)
--- NOTE | 2017-01-31 16:18 | SPA.PREOP ---
- PRE-OP NOTE Dx: Planned Procedure: C5-C6 corpectomy with sikhism Surgeon: Dr. Cadet Last Vital Signs Temp Pulse Resp BP Pulse Ox 97.9 F 75 18 126/58 97 01/31/17 14:55 01/31/17 14:55 01/31/17 14:55 01/31/17 14:55 01/31/17 09:00 Lab Results WBC 5.2 K/mm3 (4.0-10.0) 01/27/17 07:00 RBC 3.68 M/mm3 (3.60-5.2) 01/27/17 07:00 Hgb 11.3 GM/dL (10.7-15.3) 01/27/17 07:00 Hct 33.7 % (32.4-45.2) 01/27/17 07:00 MCV 91.6 fl (80-96) 01/27/17 07:00 MCHC 33.6 g/dl (32.0-36.0) 01/27/17 07:00 RDW 13.4 % (11.6-15.6) 01/27/17 07:00 Plt Count 158 K/MM3 (134-434) 01/27/17 07:00 Sodium 142 mmol/L (136-145) 01/27/17 07:00 Potassium 3.8 mmol/L (3.5-5.1) 01/27/17 07:00 Chloride 109 mmol/L (98-107) H 01/27/17 07:00 Carbon Dioxide 24 mmol/L (21-32) 01/27/17 07:00 Anion Gap 9 (8-16) 01/27/17 07:00 BUN 21 mg/dL (7-18) H 01/27/17 07:00 Creatinine 1.0 mg/dL (0.55-1.02) 01/27/17 07:00 Random Glucose 89 mg/dL (74-106) D 01/27/17 07:00 Calcium 8.7 mg/dL (8.5-10.1) 01/27/17 07:00 - IMAGING Chest X-ray: Report Reviewed (01/26), Other (cardiomegaly) EKG: Report Reviewed (braqdycardia rate 59, on 01/26) - ASSESSMENT/PLAN 87 yo female with 1. Make NPO after midnight except po meds 2. GI/DVT PPX-hold heparin SQ in the am 3. Medical optimization / clearance 4. coag/T&s Visit type - Case Type Case Type: ED Admission - Emergency Emergency Visit: Yes ED Registration Date: 01/26/17 Care time: The patient presented to the Emergency Department on the above date and was hospitalized for further evaluation of their emergent condition. - New patient This patient is new to me today: Yes Date on this admission: 01/31/17
[2017-01-31 18:08] LABS: INR 1.26 (0.82-1.09); PROTHROMBIN TIME (PATIENT) 14.2 SEC (9.98-11.88)
[2017-01-31] MEDS: ATORVASTATIN CA 20 MG TABLET (FP) PO SCH (22:00)
[2017-02-01] MEDS: GABAPENTIN 100 MG CAPSULE (FP) PO SCH ×3 (06:45→22:13)
[2017-02-01] MEDS: amLODIPine BESYLATE 10 MG TABLET (FP) PO SCH (09:09)
[2017-02-01] MEDS: VALSARTAN 160 MG TABLET (UD) PO SCH (09:09)
[2017-02-01] MEDS: POLYETHYLENE GLYCOL 3350 119 GM BTL PO SCH (09:09)
[2017-02-01] MEDS: METOPROLOL SUCCINATE 25 MG TAB.SR.24H (FP) PO SCH (09:09)
[2017-02-01] MEDS: DOCUSATE SODIUM 100 MG CAPSULE (FP) PO SCH ×2 (09:09→22:13)
[2017-02-01] MEDS: CHOLECALCIFEROL (VITAMIN D3) 1,000 UNIT TABLET (FP) PO SCH (09:10)
[2017-02-01] MEDS ORDERED: THROMBIN (BOVINE) 5,000 UNIT VIAL TP ONE ×3 (09:10→13:10)
[2017-02-01] MEDS ORDERED: BUPIVACAINE HCL/PF 0.5% (5MG/ML) 10 ML VIAL ONE (09:10)
[2017-02-01] MEDS ORDERED: GENTAMICIN SO4 80 MG/2 ML VIAL ONE (09:10)
[2017-02-01] MEDS ORDERED: PROMETHAZINE HCL 25 MG/1 ML VIAL IVPB PRN (10:04)
[2017-02-01] MEDS ORDERED: ONDANSETRON 4 MG/2 ML VIAL IVPUSH PRN (10:04)
[2017-02-01] MEDS ORDERED: PROPOFOL 20 ML ONE (10:08)
[2017-02-01] MEDS ORDERED: MIDAZOLAM HCL 2 MG/2 ML SINGLE DOSE VIAL ONE (10:08)
[2017-02-01] MEDS ORDERED: ROCURONIUM BROMIDE 50 MG/5 ML VIAL ONE (10:08)
[2017-02-01] MEDS ORDERED: LIDOCAINE HCL 2% 100 MG/5 ML DISP.SYRIN ONE (10:10)
[2017-02-01] MEDS ORDERED: ceFAZolin SODIUM 1 GM VIAL ONE (10:12)
[2017-02-01] MEDS ORDERED: LACTATED RINGERS SOLUTION 1,000 ML IV SCH (10:15)
[2017-02-01] MEDS ORDERED: ceFAZolin SODIUM 1 GM VIAL IVPB ONE (10:28)
[2017-02-01] MEDS ORDERED: LIDOCAINE 1%/EPI 1:100000 (20 ML MULTI DOSE VIAL) IJ ONE (10:41)
[2017-02-01] MEDS ORDERED: VANCOMYCIN 1,000 MG VIAL (RESTRICTED TO ID ONLY) ONE (10:58)
[2017-02-01] MEDS ORDERED: SODIUM CHLORIDE 0.9% P/F 10 ML VIAL IJ ONE (10:58)
--- NOTE | 2017-02-01 11:22 | PN ---
Progress Note, Physician Chief Complaint: Intractable back pain History of Present Illness: Patient in surgery at this time - Current Medication List Current Medications: Active Medications Acetaminophen (Tylenol -) 650 mg PO Q4H PRN PRN Reason: FEVER OR PAIN Last Admin: 01/31/17 22:01 Dose: 650 mg Acetaminophen (Tylenol -) 325 mg PO Q6H PRN PRN Reason: PAIN Amlodipine Besylate (Norvasc -) 10 mg PO DAILY [facility] Last Admin: 02/01/17 09:09 Dose: 10 mg Atorvastatin Calcium (Lipitor -) 20 mg PO HS [facility] Last Admin: 01/31/17 22:00 Dose: 20 mg Cholecalciferol (Vitamin D3 -) 1,000 unit PO DAILY [facility] Last Admin: 02/01/17 09:10 Dose: Not Given Cyclobenzaprine HCl (Flexeril -) 5 mg PO TID PRN PRN Reason: BACK PAIN Last Admin: 01/31/17 13:18 Dose: 5 mg Docusate Sodium (Colace -) 100 mg PO BID [facility] Last Admin: 02/01/17 09:09 Dose: Not Given Fentanyl (Sublimaze Injection -) 50 mcg IVPUSH [id number] PRN PRN Reason: PAIN Gabapentin (Neurontin -) 100 mg PO TID [facility] Last Admin: 02/01/17 06:45 Dose: 100 mg Heparin Sodium (Porcine) (Heparin -) 5,000 unit SQ BID [facility] Last Admin: 01/31/17 22:06 Dose: Not Given Lactated Ringer's (Lactated Ringers Solution) 1,000 mls @ 125 mls/hr IV ASDIR [facility] Ibuprofen (Motrin -) 400 mg PO Q6H PRN PRN Reason: PAIN Last Admin: 01/30/17 08:15 Dose: 400 mg Metoprolol Succinate (Toprol Xl -) 25 mg PO DAILY [facility] Last Admin: 02/01/17 09:09 Dose: 25 mg Ondansetron HCl (Zofran Injection) 4 mg IVPUSH Q6H PRN PRN Reason: NAUSEA AND/OR VOMITING Polyethylene Glycol (Miralax (For Daily Use) -) 17 gm PO DAILY [facility] Last Admin: 02/01/17 09:09 Dose: Not Given Promethazine HCl (Phenergan Injection -) 12.5 mg IVPB Q6H PRN PRN Reason: NAUSEA-FOR RESCUE AFTER 15 MIN Valsartan (Diovan -) 160 mg PO DAILY [facility] Last Admin: 02/01/17 09:09 Dose: 160 mg - Objective Vital Signs: Vital Signs Temperature 97.8 F 02/01/17 05:55 Pulse Rate 63 02/01/17 05:55 Respiratory Rate 20 02/01/17 05:55 Blood Pressure 120/55 02/01/17 05:55 O2 Sat by Pulse Oximetry (%) 97 01/31/17 09:00 Labs: CBC, BMP 01/27/17 07:00 01/27/17 07:00 INR, PTT INR 1.26 (0.82-1.09) H 01/31/17 17:25 Problem List - Problems (1) Compression fracture Assessment/Plan: -seen by neurology and neurosurgery -seen by PT walked 75 ft with light 1 person guarding -pain improved -lives at home alone with her daughter on the first floor Code(s): [id number] - (2) Intractable low back pain Assessment/Plan: -intermittent pain feeling like electric current down her right leg -tolerating of gabapentin Code(s): M54.5 - LOW BACK PAIN (3) Cervical spinal cord compression Assessment/Plan: -neurosurgery discussed with pt -in surgery Code(s): G95.20 - UNSPECIFIED CORD COMPRESSION Assessment/Plan see problem list
[2017-02-01] MEDS ORDERED: MINERAL OIL 25 ML OIL ONE (11:42)
[2017-02-01] MEDS ORDERED: GLYCOPYRROLATE 0.2 MG/1 ML VIAL ONE (12:42)
[2017-02-01] MEDS ORDERED: NEOSTIGMINE METHYLSULFATE 0.5 MG/ML - 10 ML MDV ONE (12:42)
[2017-02-01] MEDS ORDERED: HYDROmorphone HCL CARPU-JECT 2 MG/1 ML DISP.SYRIN IVPB PRN (13:58)
[2017-02-01] MEDS ORDERED: CYCLOBENZAPRINE HCL 10 MG TABLET (FP) PO PRN (14:08)
[2017-02-01] MEDS ORDERED: ACETAMINOPHEN 325 MG TABLET (FP) PO PRN (14:08)
--- NOTE | 2017-02-01 16:57 | OP ---
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
--- NOTE | 2017-02-01 17:00 | SURG ---
Surgery Lime Spreader Note Lime Spreader: Jerica Poon PA-C Date of Service: 02/01/17 Diagnosis: cervical splondylosis, loss of lordosis Procedure: Ceervical 5-6 corpectomy with hoahaoism of lordosis and reconstruction using PEEK cage and anterior plating I was present for the entirety of the operative procedure. For further detail, please refer to operative report. Visit type - Case Type Case Type: ED Admission - Emergency Emergency Visit: Yes ED Registration Date: 01/26/17 Care time: The patient presented to the Emergency Department on the above date and was hospitalized for further evaluation of their emergent condition. - New patient This patient is new to me today: Yes Date on this admission: 02/01/17
[2017-02-01] MEDS: CEFAZOLIN 1 GM PUSH 1 GM/10 ML DISP.SYRIN IVPUSH SCH (17:58)
[2017-02-01] MEDS ORDERED: CEFAZOLIN 1 GM in DEXTROSE 5%-WATER - 50 ML IVPB SCH (18:30)
[2017-02-01] MEDS: HEPARIN NA (PORCINE) 5,000 UNITS/ML 1ML VIAL SQ SCH (22:13)
[2017-02-01] MEDS: ATORVASTATIN CA 20 MG TABLET (FP) PO SCH (22:13)
[2017-02-02] MEDS: CEFAZOLIN 1 GM PUSH 1 GM/10 ML DISP.SYRIN IVPUSH SCH ×3 (01:32→17:29)
[2017-02-02] MEDS: GABAPENTIN 100 MG CAPSULE (FP) PO SCH ×3 (06:06→21:53)
[2017-02-02 08:43] LABS: BASO % 0.2 % (0-2.0); EOS % 0.2 % (0-4.5); MCH 30.6 pg (25.7-33.7); MCHC 33.2 g/dl (32.0-36.0); MEAN CELL VOLUME 92.1 fl (80-96); MEAN PLT VOLUME 7.4 fl (7.5-11.1); NEUT % 78.2 % (42.8-82.8); PLATELET COUNT 234 K/MM3 (134-434); RDW 13.2 % (11.6-15.6); WHITE BLOOD COUNT 9.4 K/mm3 (4.0-10.0)
--- NOTE | 2017-02-02 10:09 | PN ---
Progress Note, Physician - Current Medication List Current Medications: Active Medications Acetaminophen (Tylenol -) 650 mg PO Q4H PRN PRN Reason: FEVER OR PAIN Acetaminophen (Tylenol -) 325 mg PO Q6H PRN PRN Reason: PAIN Atorvastatin Calcium (Lipitor -) 20 mg PO HS [facility] Last Admin: 02/01/17 22:13 Dose: 20 mg Cholecalciferol (Vitamin D3 -) 1,000 unit PO DAILY [facility] Cyclobenzaprine HCl (Flexeril -) 5 mg PO TID PRN PRN Reason: BACK PAIN Docusate Sodium (Colace -) 100 mg PO BID [facility] Last Admin: 02/01/17 22:13 Dose: 100 mg Gabapentin (Neurontin -) 100 mg PO TID [facility] Last Admin: 02/02/17 06:06 Dose: 100 mg Heparin Sodium (Porcine) (Heparin -) 5,000 unit SQ BID [facility] Last Admin: 02/01/17 22:13 Dose: 5,000 unit Hydromorphone HCl (Dilaudid Injection -) 0.5 mg IVPB Q4H PRN PRN Reason: PAIN Cefazolin Sodium (Ancef -) 1 gm in 10 mls @ 120 mls/hr IVPUSH Q8H-IV [facility] Last Admin: 02/02/17 01:32 Dose: 120 mls/hr Metoprolol Succinate (Toprol Xl -) 25 mg PO DAILY [facility] Polyethylene Glycol (Miralax (For Daily Use) -) 17 gm PO DAILY [facility] Valsartan (Diovan -) 160 mg PO DAILY [facility] - Objective Vital Signs: Vital Signs Temperature 98.1 F 02/02/17 03:00 Pulse Rate 87 02/02/17 03:00 Respiratory Rate 20 02/02/17 03:00 Blood Pressure 120/86 02/02/17 03:00 O2 Sat by Pulse Oximetry (%) 99 02/01/17 21:00 Neck: Yes: Other Cardiovascular: Yes: Regular Rate and Rhythm Respiratory: Yes: Regular, CTA Bilaterally Labs: CBC, BMP 02/02/17 07:30 01/27/17 07:00 INR, PTT INR 1.26 (0.82-1.09) H 01/31/17 17:25 Problem List - Problems (1) Compression fracture Code(s): [id number] - (2) HTN (hypertension) Code(s): I10 - ESSENTIAL (PRIMARY) HYPERTENSION (3) Intractable low back pain Code(s): M54.5 - LOW BACK PAIN Assessment/Plan - Problems (1) Compression fracture Assessment/Plan: -seen by neurology and neurosurgery -seen by PT walked 75 ft with light 1 person guarding -pain improved -lives at home alone with her daughter on the first floor Code(s): [id number] - (2) Intractable low back pain Assessment/Plan: -intermittent pain feeling like electric current down her right leg -tolerating of gabapentin Code(s): M54.5 - LOW BACK PAIN (3) Cervical spinal cord compression Assessment/Plan: -neurosurgery discussed with pt -in surgery Code(s): G95.20 - UNSPECIFIED CORD COMPRESSION
[2017-02-02] MEDS: METOPROLOL SUCCINATE 25 MG TAB.SR.24H (FP) PO SCH (11:01)
[2017-02-02] MEDS: VALSARTAN 160 MG TABLET (UD) PO SCH (11:01)
[2017-02-02] MEDS: DOCUSATE SODIUM 100 MG CAPSULE (FP) PO SCH ×2 (11:01→21:53)
[2017-02-02] MEDS: CHOLECALCIFEROL (VITAMIN D3) 1,000 UNIT TABLET (FP) PO SCH (11:01)
[2017-02-02] MEDS: HEPARIN NA (PORCINE) 5,000 UNITS/ML 1ML VIAL SQ SCH ×2 (11:02→21:53)
[2017-02-02] MEDS: POLYETHYLENE GLYCOL 3350 119 GM BTL PO SCH (11:03)
[2017-02-02] MEDS: ALBUTEROL SO4 2.5/IPRATROPIUM 0.5 INH SOL 3 ML VIAL.NEB. NEB SCH ×3 (11:15→23:39)
--- NOTE | 2017-02-02 15:53 | PN ---
Progress Note (short form) - Note Progress Note: POD #1 - s/p C5-C6 anterior decompression/fusion under GA. Pt. doing well, resting comfortably in bed. No complaints. No apparent anesthetic complications noted. Continue current care.
[2017-02-02] MEDS: ATORVASTATIN CA 20 MG TABLET (FP) PO SCH (21:53)
[2017-02-03] MEDS ORDERED: PT OWN MED DRAWER 7, Y5N ONE ×3 (01:22→17:05)
[2017-02-03] MEDS: CEFAZOLIN 1 GM PUSH 1 GM/10 ML DISP.SYRIN IVPUSH SCH ×3 (01:22→17:06)
[2017-02-03] MEDS: ALBUTEROL SO4 2.5/IPRATROPIUM 0.5 INH SOL 3 ML VIAL.NEB. NEB SCH ×4 (06:11→23:42)
[2017-02-03] MEDS: GABAPENTIN 100 MG CAPSULE (FP) PO SCH ×3 (06:12→21:27)
[2017-02-03] MEDS: CHOLECALCIFEROL (VITAMIN D3) 1,000 UNIT TABLET (FP) PO SCH (10:52)
[2017-02-03] MEDS: POLYETHYLENE GLYCOL 3350 119 GM BTL PO SCH (10:52)
[2017-02-03] MEDS: HEPARIN NA (PORCINE) 5,000 UNITS/ML 1ML VIAL SQ SCH ×2 (10:52→21:27)
[2017-02-03] MEDS: DOCUSATE SODIUM 100 MG CAPSULE (FP) PO SCH ×2 (10:52→21:27)
[2017-02-03] MEDS: VALSARTAN 160 MG TABLET (UD) PO SCH (10:52)
[2017-02-03] MEDS: METOPROLOL SUCCINATE 25 MG TAB.SR.24H (FP) PO SCH (10:52)
--- NOTE | 2017-02-03 14:29 | PN ---
Progress Note, Physician - Current Medication List Current Medications: Active Medications Acetaminophen (Tylenol -) 650 mg PO Q4H PRN PRN Reason: FEVER OR PAIN Acetaminophen (Tylenol -) 325 mg PO Q6H PRN PRN Reason: PAIN Albuterol/Ipratropium (Duoneb -) 1 amp NEB QIDR [facility] Last Admin: 02/03/17 11:11 Dose: 1 amp Atorvastatin Calcium (Lipitor -) 20 mg PO HS [facility] Last Admin: 02/02/17 21:53 Dose: 20 mg Cholecalciferol (Vitamin D3 -) 1,000 unit PO DAILY [facility] Last Admin: 02/03/17 10:52 Dose: 1,000 unit Cyclobenzaprine HCl (Flexeril -) 5 mg PO TID PRN PRN Reason: BACK PAIN Docusate Sodium (Colace -) 100 mg PO BID [facility] Last Admin: 02/03/17 10:52 Dose: 100 mg Gabapentin (Neurontin -) 100 mg PO TID [facility] Last Admin: 02/03/17 06:12 Dose: 100 mg Heparin Sodium (Porcine) (Heparin -) 5,000 unit SQ BID [facility] Last Admin: 02/03/17 10:52 Dose: 5,000 unit Hydromorphone HCl (Dilaudid Injection -) 0.5 mg IVPB Q4H PRN PRN Reason: PAIN Cefazolin Sodium (Ancef -) 1 gm in 10 mls @ 120 mls/hr IVPUSH Q8H-IV [facility] Last Admin: 02/03/17 12:17 Dose: 120 mls/hr Metoprolol Succinate (Toprol Xl -) 25 mg PO DAILY [facility] Last Admin: 02/03/17 10:52 Dose: 25 mg Polyethylene Glycol (Miralax (For Daily Use) -) 17 gm PO DAILY [facility] Last Admin: 02/03/17 10:52 Dose: 17 gm Valsartan (Diovan -) 160 mg PO DAILY [facility] Last Admin: 02/03/17 10:52 Dose: 160 mg - Objective Vital Signs: Vital Signs Temperature 98 F 02/03/17 08:00 Pulse Rate 82 02/03/17 08:00 Respiratory Rate 18 02/03/17 08:00 Blood Pressure 123/64 02/03/17 08:00 O2 Sat by Pulse Oximetry (%) 96 02/03/17 09:00 Cardiovascular: Yes: Regular Rate and Rhythm Respiratory: Yes: Regular, Diminished Gastrointestinal: Yes: Normal Bowel Sounds, Soft Labs: CBC, BMP 02/02/17 07:30 01/27/17 07:00 INR, PTT INR 1.26 (0.82-1.09) H 01/31/17 17:25 Problem List - Problems (1) Compression fracture Code(s): [id number] - (2) HTN (hypertension) Code(s): I10 - ESSENTIAL (PRIMARY) HYPERTENSION (3) Intractable low back pain Code(s): M54.5 - LOW BACK PAIN Assessment/Plan - Problems (1) Compression fracture Assessment/Plan: -seen by neurology and neurosurgery -seen by PT walked 75 ft with light 1 person guarding -pain improved -lives at home alone with her daughter on the first floor Code(s): [id number] - (2) Intractable low back pain Assessment/Plan: -intermittent pain feeling like electric current down her right leg -tolerating of gabapentin Code(s): M54.5 - LOW BACK PAIN (3) Cervical spinal cord compression Assessment/Plan: -neurosurgery discussed with pt -in surgery Code(s): G95.20 - UNSPECIFIED CORD COMPRESSION (4) Cough Assessment/Plan: -NEBS INCENTIVE SPIROMTRY
[2017-02-03 16:05] LABS: CPK 152 IU/L (26-192); TROPONIN I 0.06 ng/ml (0.00-0.05)
[2017-02-03] MEDS: ATORVASTATIN CA 20 MG TABLET (FP) PO SCH (21:27)
[2017-02-04] MEDS ORDERED: PT OWN MED DRAWER 7, Y5N ONE ×2 (01:24→18:01)
[2017-02-04] MEDS: CEFAZOLIN 1 GM PUSH 1 GM/10 ML DISP.SYRIN IVPUSH SCH ×3 (01:29→18:17)
[2017-02-04] MEDS: GABAPENTIN 100 MG CAPSULE (FP) PO SCH ×3 (05:50→21:20)
[2017-02-04] MEDS: ALBUTEROL SO4 2.5/IPRATROPIUM 0.5 INH SOL 3 ML VIAL.NEB. NEB SCH ×4 (06:36→23:32)
[2017-02-04] MEDS: DOCUSATE SODIUM 100 MG CAPSULE (FP) PO SCH ×2 (10:42→21:19)
[2017-02-04] MEDS: VALSARTAN 160 MG TABLET (UD) PO SCH (10:42)
[2017-02-04] MEDS: POLYETHYLENE GLYCOL 3350 119 GM BTL PO SCH (10:42)
[2017-02-04] MEDS: METOPROLOL SUCCINATE 25 MG TAB.SR.24H (FP) PO SCH (10:42)
[2017-02-04] MEDS: HEPARIN NA (PORCINE) 5,000 UNITS/ML 1ML VIAL SQ SCH ×2 (10:42→21:20)
[2017-02-04] MEDS: CHOLECALCIFEROL (VITAMIN D3) 1,000 UNIT TABLET (FP) PO SCH (10:42)
--- NOTE | 2017-02-04 13:19 | PN ---
Progress Note, Physician Chief Complaint: patient lying in bed awake alert cervical collar in place was sitting in chair earlier in day now back in bed noted to have elevated troponin no chest pain no discomfort no SOB noted - Current Medication List Current Medications: Active Medications Acetaminophen (Tylenol -) 650 mg PO Q4H PRN PRN Reason: FEVER OR PAIN Acetaminophen (Tylenol -) 325 mg PO Q6H PRN PRN Reason: PAIN Albuterol/Ipratropium (Duoneb -) 1 amp NEB QIDR [facility] Last Admin: 02/04/17 10:45 Dose: 1 amp Atorvastatin Calcium (Lipitor -) 20 mg PO HS [facility] Last Admin: 02/03/17 21:27 Dose: 20 mg Cholecalciferol (Vitamin D3 -) 1,000 unit PO DAILY [facility] Last Admin: 02/04/17 10:42 Dose: 1,000 unit Cyclobenzaprine HCl (Flexeril -) 5 mg PO TID PRN PRN Reason: BACK PAIN Docusate Sodium (Colace -) 100 mg PO BID [facility] Last Admin: 02/04/17 10:42 Dose: 100 mg Gabapentin (Neurontin -) 100 mg PO TID [facility] Last Admin: 02/04/17 05:50 Dose: 100 mg Heparin Sodium (Porcine) (Heparin -) 5,000 unit SQ BID [facility] Last Admin: 02/04/17 10:42 Dose: 5,000 unit Hydromorphone HCl (Dilaudid Injection -) 0.5 mg IVPB Q4H PRN PRN Reason: PAIN Cefazolin Sodium (Ancef -) 1 gm in 10 mls @ 120 mls/hr IVPUSH Q8H-IV [facility] Last Admin: 02/04/17 10:44 Dose: 120 mls/hr Metoprolol Succinate (Toprol Xl -) 25 mg PO DAILY [facility] Last Admin: 02/04/17 10:42 Dose: 25 mg Polyethylene Glycol (Miralax (For Daily Use) -) 17 gm PO DAILY [facility] Last Admin: 02/04/17 10:42 Dose: 17 gm Valsartan (Diovan -) 160 mg PO DAILY [facility] Last Admin: 02/04/17 10:42 Dose: 160 mg - Objective Vital Signs: Vital Signs Temperature 98.8 F 02/04/17 06:00 Pulse Rate 89 02/04/17 10:40 Respiratory Rate 20 02/04/17 06:00 Blood Pressure 128/52 02/04/17 06:00 O2 Sat by Pulse Oximetry (%) 94 L 02/04/17 10:40 Constitutional: Yes: Calm Neck: Yes: Trachea Midline, Other (cervical collar) Cardiovascular: Yes: Regular Rate and Rhythm, S1, S2 Respiratory: Yes: CTA Bilaterally Gastrointestinal: Yes: Normal Bowel Sounds, Soft Edema: No Neurological: Yes: Alert, Oriented Labs: CBC, BMP 02/02/17 07:30 01/27/17 07:00 INR, PTT INR 1.26 (0.82-1.09) H 01/31/17 17:25 Problem List - Problems (1) Cervical spinal cord compression Assessment/Plan: DANNIE on board s/p surgery Code(s): G95.20 - UNSPECIFIED CORD COMPRESSION (2) Compression fracture Assessment/Plan: - Note: Operative Date: 02/01/17 Pre-Operative Diagnosis: cervical splondylosis with loss of lordosis Operation: Ceervical 5-6 corpectomy with druze of lordosis and reconstruction using PEEK cage and anterior plating Implants: Medtronic peek cage, anterior cervical plate and screws x 4 dvt pxx Code(s): FIR9154 - (3) HTN (hypertension) Assessment/Plan: metoprolol and diovan Code(s): I10 - ESSENTIAL (PRIMARY) HYPERTENSION (4) Intractable low back pain Assessment/Plan: flexeril Code(s): M54.5 - LOW BACK PAIN (5) Elevated troponin Assessment/Plan: repeat troponin today ekg cardiololgy evaluation echo on betablocker, statin Code(s): R74.8 - ABNORMAL LEVELS OF OTHER SERUM ENZYMES
--- NOTE | 2017-02-04 14:18 | CON.CARD ---
Consult Consult Specialty:: Cardiology Referred by:: Dr. Saunders Reason for Consultation:: Mildly elevated troponin. - History of Present Illness Chief Complaint: Mildly elevated troponin. History of Present Illness: 87 year-old woman with a PMHx of hypertension, hyperlipidemia, stress incontinence and cervical splondylosis admitted 01/26/2017 with severe electric like sensation in her neck and it jolted her and she fell backward and hurting her back. She was seen by Neurology and Neurosurgery and underwent cervical 5-6 corpectomy with orthodox of lordosis and reconstruction using PEEK cage and anterior plating on 02/01/2017. She was found to have mildly elevated troponin: 0.06 ->0.06. ECG 02/04/2017 revealed sinus rhythm with left axis deviation and LVH. Only aVL has T inversion. The patient denies chest pain. She has no SOB at rest, palpitation, dizziness, diaphoresis, syncope or near syncope. No edema, orthopnea or PND. 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 Cardio/Vascular: Yes: HTN, Hyperlipdemia ...: No Musculoskeletal: Yes: Osteoarthritis - Alcohol/Substance Use Hx Alcohol Use: No - Smoking History Smoking history: Never smoked Have you smoked in the past 12 months: No Home Medications - Allergies Allergies/Adverse Reactions: Allergies Allergy/AdvReac Type Severity Reaction Status Date / Time No Known Drug Allergies Allergy Verified 01/26/17 03:06 - Home Medications Home Medications: Ambulatory Orders Aspirin [Baby Aspirin] 81 mg PO DAILY 02/27/11 Amlodipine/Valsartan [Amlodipine-Valsartan 10-160 mg] 1 each PO HS 07/26/15 Atorvastatin Ca [Lipitor] 20 mg PO HS 07/26/15 Cholecalciferol (Vitamin D3) [Vitamin D3 -] 1,000 unit PO HS 07/26/15 Metoprolol Succinate [Toprol XL -] 25 mg PO HS 07/26/15 Cyclobenzaprine HCl [Flexeril -] 5 mg PO TID #90 tablet 01/29/17 Docusate Sodium [Colace -] 100 mg PO BID #60 capsule 01/29/17 Ibuprofen [Motrin -] 400 mg PO Q6H PRN #120 tablet 01/29/17 Review of Systems - Review of Systems Constitutional: reports: No Symptoms Eyes: reports: No Symptoms HENT: reports: No Symptoms Neck: reports: Decreased ROM, Other (Neck collar.) Cardiovascular: reports: No Symptoms Respiratory: reports: Cough Gastrointestinal: reports: No Symptoms Genitourinary: reports: Incontinence Musculoskeletal: reports: Back Pain, Other (Neck collar) Neurological: reports: No Symptoms Endocrine: reports: No Symptoms Hematology/Lymphatic: reports: No Symptoms Psychiatric: reports: No Symptoms Vital Signs: Vital Signs Temperature 98.1 F 02/04/17 10:00 Pulse Rate 89 02/04/17 10:40 Respiratory Rate 20 02/04/17 10:00 Blood Pressure 117/79 02/04/17 10:00 O2 Sat by Pulse Oximetry (%) 94 L 02/04/17 10:40 Constitutional: Yes: Well Nourished, No Distress, Calm Eyes: Yes: WNL, Conjunctiva Clear, EOM Intact HENT: Yes: WNL, Atraumatic, Normocephalic Neck: Yes: Other (Neck collar.) Respiratory: Yes: Regular, CTA Bilaterally Gastrointestinal: Yes: Normal Bowel Sounds, Soft Cardiovascular: Yes: Regular Rate and Rhythm JVD: No Carotid Bruit: No PMI: Non-Displaced Heart Sounds: Yes: S1, S2 Murmur: Yes: Systolic Murmur, Grade 2 Musculoskeletal: Yes: Back Pain Extremities: Yes: WNL Edema: No Peripheral Pulses WNL: Yes Neurological: Yes: WNL, Alert, Oriented - Other Data Labs, Other Data: CBC, BMP 02/02/17 07:30 01/27/17 07:00 INR, PTT INR 1.26 (0.82-1.09) H 01/31/17 17:25 Troponin, BNP 02/03/17 02/03/17 15:35 21:20 Troponin I 0.06 H 0.06 H Troponin, BNP 02/03/17 02/03/17 15:35 21:20 Troponin I 0.06 H 0.06 H ECG 02/04/2017 revealed sinus rhythm with left axis deviation and LVH. Only aVL has T inversion. Imaging - Results EKG: Image Reviewed (ECG 02/04/2017 revealed sinus rhythm with left axis deviation and LVH. Only aVL has T inversion.) Assessment/Plan 87 year-old woman with a PMHx of hypertension, hyperlipidemia, stress incontinence and cervical splondylosis admitted 01/26/2017 with severe electric like sensation in her neck and it jolted her and she fell backward and hurting her back. She was seen by Neurology and Neurosurgery and underwent cervical 5-6 corpectomy with orthodox of lordosis and reconstruction using PEEK cage and anterior plating on 02/01/2017. She was found to have mildly elevated troponin: 0.06 ->0.06. ECG 02/04/2017 revealed sinus rhythm with left axis deviation and LVH. Only aVL has T inversion. The patient has no symptoms of angina or CHF. 1) Mildly elevated troponin, non-dynamic: 0.06 ->0.06, no ECG changes of ischemia, likely not acute coronary syndrome. Repeat troponin. Repeat ECG. Agree with echocardiogram to evaluation regional wall motion and systolic function. Continue metoprolol and atorvastatin. 2) HTN: BP is well controlled. Continue Metoprolol and Valsartan. We will follow with you.
[2017-02-04 14:32] LABS: TROPONIN I 0.05 ng/ml (0.00-0.05)
[2017-02-04] MEDS: ATORVASTATIN CA 20 MG TABLET (FP) PO SCH (21:20)
[2017-02-05] MEDS ORDERED: PT OWN MED DRAWER 7, Y5N ONE (01:21)
[2017-02-05] MEDS: CEFAZOLIN 1 GM PUSH 1 GM/10 ML DISP.SYRIN IVPUSH SCH ×2 (01:22→10:39)
--- NOTE | 2017-02-05 01:30 | EKG ---
Test Reason : Blood Pressure : / mmHG Vent. Rate : 085 BPM Atrial Rate : 085 BPM P-R Int : 160 ms QRS Dur : 096 ms QT Int : 382 ms P-R-T Axes : 063 -36 077 degrees QTc Int : 454 ms SINUS RHYTHM BASELINE ARTIFACT LEFT AXIS DEVIATION VOLTAGE CRITERIA FOR LEFT VENTRICULAR HYPERTROPHY ABNORMAL ECG WHEN COMPARED WITH ECG OF 03-FEB-2017 15:03, NO SIGNIFICANT CHANGE WAS FOUND Confirmed by VIKI MEYERS MD ([id number]) on 02/05/2017 1:30:22 AM Referred By: Confirmed By:VIKI MEYERS MD
--- NOTE | 2017-02-05 01:33 | EKG ---
Test Reason : Blood Pressure : / mmHG Vent. Rate : 086 BPM Atrial Rate : 086 BPM P-R Int : 160 ms QRS Dur : 098 ms QT Int : 380 ms P-R-T Axes : 065 -27 082 degrees QTc Int : 454 ms NORMAL SINUS RHYTHM NORMAL ECG WHEN COMPARED WITH ECG OF 26-JAN-2017 05:40, NO SIGNIFICANT CHANGE WAS FOUND Confirmed by VIKI MEYERS MD ([id number]) on 02/05/2017 1:33:08 AM Referred By: Tiffanie MENDOZA Confirmed By:VIKI MEYERS MD
[2017-02-05] MEDS: GABAPENTIN 100 MG CAPSULE (FP) PO SCH ×3 (05:06→22:10)
[2017-02-05] MEDS: ALBUTEROL SO4 2.5/IPRATROPIUM 0.5 INH SOL 3 ML VIAL.NEB. NEB SCH ×3 (05:55→19:00)
[2017-02-05] MEDS: HEPARIN NA (PORCINE) 5,000 UNITS/ML 1ML VIAL SQ SCH ×2 (10:39→22:09)
[2017-02-05] MEDS: CHOLECALCIFEROL (VITAMIN D3) 1,000 UNIT TABLET (FP) PO SCH (10:39)
[2017-02-05] MEDS: METOPROLOL SUCCINATE 25 MG TAB.SR.24H (FP) PO SCH (10:39)
[2017-02-05] MEDS: DOCUSATE SODIUM 100 MG CAPSULE (FP) PO SCH ×2 (10:39→22:10)
[2017-02-05] MEDS: VALSARTAN 160 MG TABLET (UD) PO SCH (10:39)
[2017-02-05] MEDS: POLYETHYLENE GLYCOL 3350 119 GM BTL PO SCH (10:42)
--- NOTE | 2017-02-05 11:29 | PN ---
Progress Note (short form) - Note Progress Note: POD #4 Alert. Sitting in chair at bedside. Compliant with wearing her cervical collar as well as TLSO brace. States she feels much better today. Still c/o mild incisional tenderness. Adequate pain control via prn meds. Cardio consulted due to elevated troponins - note appreciated. Denies n/v/f/c, CP, SOB, weakness, numbness, tingling. Last Vital Signs Temp Pulse Resp BP Pulse Ox 98.7 F 72 20 129/59 95 02/05/17 05:58 02/05/17 05:58 02/05/17 05:58 02/05/17 05:58 02/04/17 22:00 CBC, BMP 02/02/17 07:30 01/27/17 07:00 Troponin, BNP 02/04/17 14:02 Troponin I 0.05 Gen: alert. nad Neck: Dressing taken down on rounds. Mild soft tissue swelling. No erythema. No oozing. Incision c/d/i. Neuro: GMNVI Problem List - Problems (1) Cervical spinal cord compression Assessment/Plan: POD #4 s/p cervical 5-6 corpectomy with mormonism of lordosis and reconstruction using PEEK cage and anterior plating Dressing changed on rounds...dermabond reapplied to incision Patient must wear her cervical collar and TLSO brace when oob to chair for > 5 mins or while ambulating with PT Cardio following f/u rpt Troponin Cont medical management Code(s): G95.20 - UNSPECIFIED CORD COMPRESSION
--- NOTE | 2017-02-05 14:24 | PN ---
Progress Note, Physician Chief Complaint: patient lying in bed talking on phone will advance diet - Current Medication List Current Medications: Active Medications Acetaminophen (Tylenol -) 650 mg PO Q4H PRN PRN Reason: FEVER OR PAIN Acetaminophen (Tylenol -) 325 mg PO Q6H PRN PRN Reason: PAIN Albuterol/Ipratropium (Duoneb -) 1 amp NEB QIDR [facility] Last Admin: 02/05/17 11:01 Dose: 1 amp Atorvastatin Calcium (Lipitor -) 20 mg PO HS [facility] Last Admin: 02/04/17 21:20 Dose: 20 mg Cholecalciferol (Vitamin D3 -) 1,000 unit PO DAILY [facility] Last Admin: 02/05/17 10:39 Dose: 1,000 unit Cyclobenzaprine HCl (Flexeril -) 5 mg PO TID PRN PRN Reason: BACK PAIN Docusate Sodium (Colace -) 100 mg PO BID [facility] Last Admin: 02/05/17 10:39 Dose: 100 mg Gabapentin (Neurontin -) 100 mg PO TID [facility] Last Admin: 02/05/17 13:43 Dose: 100 mg Heparin Sodium (Porcine) (Heparin -) 5,000 unit SQ BID [facility] Last Admin: 02/05/17 10:39 Dose: 5,000 unit Cefazolin Sodium (Ancef -) 1 gm in 10 mls @ 120 mls/hr IVPUSH Q8H-IV [facility] Last Admin: 02/05/17 10:39 Dose: 120 mls/hr Metoprolol Succinate (Toprol Xl -) 25 mg PO DAILY [facility] Last Admin: 02/05/17 10:39 Dose: 25 mg Polyethylene Glycol (Miralax (For Daily Use) -) 17 gm PO DAILY [facility] Last Admin: 02/05/17 10:42 Dose: Not Given Valsartan (Diovan -) 160 mg PO DAILY [facility] Last Admin: 02/05/17 10:39 Dose: 160 mg - Objective Vital Signs: Vital Signs Temperature 98.7 F 02/05/17 05:58 Pulse Rate 72 02/05/17 05:58 Respiratory Rate 20 02/05/17 05:58 Blood Pressure 129/59 02/05/17 05:58 O2 Sat by Pulse Oximetry (%) 95 02/04/17 22:00 Constitutional: Yes: Calm Neck: Yes: Other (neck collar) Cardiovascular: Yes: Regular Rate and Rhythm, S1, S2 Respiratory: Yes: CTA Bilaterally Gastrointestinal: Yes: Normal Bowel Sounds, Soft Musculoskeletal: Yes: Other (scd) Neurological: Yes: Alert, Oriented Labs: CBC, BMP 02/02/17 07:30 01/27/17 07:00 INR, PTT INR 1.26 (0.82-1.09) H 01/31/17 17:25 Problem List - Problems (1) Compression fracture Assessment/Plan: - Note: Operative Date: 02/01/17 Pre-Operative Diagnosis: cervical splondylosis with loss of lordosis Operation: Ceervical 5-6 corpectomy with jain of lordosis and reconstruction using PEEK cage and anterior plating Implants: Medtronic peek cage, anterior cervical plate and screws x 4 dvt pxx pain control oob to chair Code(s): [id number] - (2) Cervical spinal cord compression Assessment/Plan: DANNIE on board s/p surgery Code(s): G95.20 - UNSPECIFIED CORD COMPRESSION (3) HTN (hypertension) Assessment/Plan: metoprolol and diovan Code(s): I10 - ESSENTIAL (PRIMARY) HYPERTENSION (4) Elevated troponin Assessment/Plan: repeat troponin is lower appreciate cardiology consult echo is pending on betablocker, statin Code(s): R74.8 - ABNORMAL LEVELS OF OTHER SERUM ENZYMES (5) Intractable low back pain Assessment/Plan: flexeril Code(s): M54.5 - LOW BACK PAIN Assessment/Plan patient will have regular diet today will go home with VNS once cleared by surgery echo pending
--- NOTE | 2017-02-05 17:10 | PN ---
Progress Note, Physician Chief Complaint: Patient appears comfortable. She has no chest pain or SOB at rest. History of Present Illness: 87 year-old woman with a PMHx of hypertension, hyperlipidemia, stress incontinence and cervical splondylosis admitted 01/26/2017 with severe electric like sensation in her neck and it jolted her and she fell backward and hurting her back. She was seen by Neurology and Neurosurgery and underwent cervical 5-6 corpectomy with quaker of lordosis and reconstruction using PEEK cage and anterior plating on 02/01/2017. She was found to have mildly elevated troponin: 0.06 ->0.06 ->>0.50. ECG 02/04/2017 revealed sinus rhythm with left axis deviation and LVH. Only aVL has T inversion. Echocardiogram today 02/05/2017 showed normal LV size, wall motion and systolic function. - Current Medication List Current Medications: Active Medications Acetaminophen (Tylenol -) 650 mg PO Q4H PRN PRN Reason: FEVER OR PAIN Acetaminophen (Tylenol -) 325 mg PO Q6H PRN PRN Reason: PAIN Albuterol/Ipratropium (Duoneb -) 1 amp NEB QIDR [facility] Last Admin: 02/05/17 11:01 Dose: 1 amp Atorvastatin Calcium (Lipitor -) 20 mg PO HS [facility] Last Admin: 02/04/17 21:20 Dose: 20 mg Cholecalciferol (Vitamin D3 -) 1,000 unit PO DAILY [facility] Last Admin: 02/05/17 10:39 Dose: 1,000 unit Cyclobenzaprine HCl (Flexeril -) 5 mg PO TID PRN PRN Reason: BACK PAIN Docusate Sodium (Colace -) 100 mg PO BID [facility] Last Admin: 02/05/17 10:39 Dose: 100 mg Gabapentin (Neurontin -) 100 mg PO TID [facility] Last Admin: 02/05/17 13:43 Dose: 100 mg Heparin Sodium (Porcine) (Heparin -) 5,000 unit SQ BID [facility] Last Admin: 02/05/17 10:39 Dose: 5,000 unit Metoprolol Succinate (Toprol Xl -) 25 mg PO DAILY [facility] Last Admin: 02/05/17 10:39 Dose: 25 mg Polyethylene Glycol (Miralax (For Daily Use) -) 17 gm PO DAILY [facility] Last Admin: 02/05/17 10:42 Dose: Not Given Valsartan (Diovan -) 160 mg PO DAILY [facility] Last Admin: 02/05/17 10:39 Dose: 160 mg - Objective Vital Signs: Vital Signs Temperature 97.9 F 02/05/17 15:10 Pulse Rate 74 02/05/17 15:10 Respiratory Rate 16 02/05/17 15:10 Blood Pressure 122/68 02/05/17 15:10 O2 Sat by Pulse Oximetry (%) 95 02/04/17 22:00 Constitutional: Yes: Well Nourished, No Distress, Calm Eyes: Yes: WNL, Conjunctiva Clear, EOM Intact HENT: Yes: Atraumatic, Normocephalic Neck: Yes: Other (Neck colloar) Cardiovascular: Yes: Regular Rate and Rhythm Respiratory: Yes: Regular, CTA Bilaterally Gastrointestinal: Yes: Normal Bowel Sounds, Soft ...Rectal Exam: Yes: Deferred Extremities: Yes: WNL Edema: No Peripheral Pulses WNL: Yes Labs: CBC, BMP 02/02/17 07:30 01/27/17 07:00 INR, PTT INR 1.26 (0.82-1.09) H 01/31/17 17:25 Assessment/Plan 87 year-old woman with a PMHx of hypertension, hyperlipidemia, stress incontinence and cervical splondylosis admitted 01/26/2017 with severe electric like sensation in her neck and it jolted her and she fell backward and hurting her back. She was seen by Neurology and Neurosurgery and underwent cervical 5-6 corpectomy with quaker of lordosis and reconstruction using PEEK cage and anterior plating on 02/01/2017. She was found to have mildly elevated troponin: 0.06 ->0.06. ECG 02/04/2017 revealed sinus rhythm with left axis deviation and LVH. Echocardiogram today 02/05/2017 showed normal LV size, wall motion and systolic function. 1) Mildly elevated troponin, non-dynamic: 0.06 ->0.06-.0.5, no ECG changes of ischemia, likely not acute coronary syndrome. Echo showed normal LV systolic function without segmental wall motion abnormality. No further cardiac test recommended at this time. Continue metoprolol and atorvastatin. 2) HTN: BP is well controlled. Continue Metoprolol and Valsartan. Please call us for reconsult as needed.
--- NOTE | 2017-02-05 17:24 | PN ---
Progress Note (short form) - Note Progress Note: Patient doing very well from Neurosurgery standpoint. No pain and good function. Ambulating with PT. She may do better with a simpler TLSO brace such as an [place] Quickdraw Contour or other fabric/velcro brace versus the rigid TLSO she now has. Shoulder pain resolving. She reports that her ECHO was unremarkable for acute cardiac pathology. She is prepared for discharge to Rehabilitation/Subacute Rehab from Neurosurgery standpoint. Discharge to home may be considered if adequate safety/support is arranged.
[2017-02-05] MEDS: ATORVASTATIN CA 20 MG TABLET (FP) PO SCH (22:10)
[2017-02-06] MEDS: ALBUTEROL SO4 2.5/IPRATROPIUM 0.5 INH SOL 3 ML VIAL.NEB. NEB SCH ×4 (00:10→17:05)
[2017-02-06] MEDS: GABAPENTIN 100 MG CAPSULE (FP) PO SCH ×3 (06:46→21:09)
[2017-02-06 08:16] LABS: BASO % 0.7 % (0-2.0); EOS % 4.8 % (0-4.5); MCH 30.9 pg (25.7-33.7); MCHC 33.4 g/dl (32.0-36.0); MEAN CELL VOLUME 92.4 fl (80-96); MEAN PLT VOLUME 6.9 fl (7.5-11.1); NEUT % 70.1 % (42.8-82.8); PLATELET COUNT 274 K/MM3 (134-434); RDW 13.4 % (11.6-15.6); WHITE BLOOD COUNT 6.6 K/mm3 (4.0-10.0)
[2017-02-06 08:35] LABS: ALBUMIN 2.5 g/dl (3.4-5.0); ALK PHOS 134 U/L (45-117); ANION GAP 9 (8-16); BILIRUBIN,TOTAL 0.8 mg/dL (0.2-1.0); CALCIUM 8.9 mg/dL (8.5-10.1); CO2 23 mmol/L (21-32); CREATININE 0.8 mg/dL (0.55-1.02); GLUCOSE,RANDOM 97 mg/dL (74-106); SGOT/AST 16 U/L (15-37); SGPT/ALT 7 U/L (12-78)
--- NOTE | 2017-02-06 09:15 | DS ---
Physical Examination Vital Signs: Vital Signs Temperature 98.4 F 02/06/17 05:48 Pulse Rate 84 02/06/17 05:48 Respiratory Rate 20 02/06/17 05:48 Blood Pressure 130/66 02/06/17 05:48 O2 Sat by Pulse Oximetry (%) 96 02/05/17 21:00 Neck: Yes: Other (collar in place) Cardiovascular: Yes: Regular Rate and Rhythm Respiratory: Yes: Regular, CTA Bilaterally Gastrointestinal: Yes: Normal Bowel Sounds, Soft Labs: CBC, BMP 02/06/17 06:30 02/06/17 06:30 Discharge Summary Reason For Visit: INTRACTABLE LOW BACK PAIN Current Active Problems Cervical spinal cord compression (Acute) Compression fracture (Acute) Elevated troponin (Acute) HTN (hypertension) (Acute) Intractable low back pain (Acute) Hospital Course: 87-year-old female with a history of hypertension presents to the emergency department complaining of right sided lumbar paravertebral tenderness. Pain is described as 8/10 dull nonradiating intermittent discomfort. Patient states she slipped and fell 2 days ago when she reached forward to grab her hamper. Patient denies any head injuries, dizziness, lightheadedness, headaches, facial pain, neck pains, chest pain, shortness of breath, abdominal pains, bladder or bowel dysfunction. The pain is exacerbated with movement and there are minimal relief at rest. 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 The patient also has acute disc herniations at C45, C56 & C67 which severely narrow the cervical spinal canal and cause further cord compression with associated T2 signal change. The patient presented after a fall at home which followed a severe cervical pain and may be the events surrounding her acute disc herniations. She has good strength and only minimal numbness and tingling in her hands despite a fairly impressive Cervical MRI. - Past Medical History Cardiovascular: Yes: HTN, Hyperlipdemia Musculoskeletal: Yes: Osteoarthritis - Problems (1) Compression fracture Assessment/Plan: - Note: Operative Date: 02/01/17 Pre-Operative Diagnosis: cervical splondylosis with loss of lordosis Operation: Ceervical 5-6 corpectomy with sikh of lordosis and reconstruction using PEEK cage and anterior plating Implants: [employer] peek cage, anterior cervical plate and screws x 4 dvt pxx pain control oob to chair Code(s): [id number] - (2) Cervical spinal cord compression Assessment/Plan: DANNIE on board s/p surgery Code(s): G95.20 - UNSPECIFIED CORD COMPRESSION (3) HTN (hypertension) Assessment/Plan: metoprolol and diovan Code(s): I10 - ESSENTIAL (PRIMARY) HYPERTENSION (4) Elevated troponin Assessment/Plan: repeat troponin is lower appreciate cardiology consult echo is pending on betablocker, statin Code(s): R74.8 - ABNORMAL LEVELS OF OTHER SERUM ENZYMES (5) Intractable low back pain/compresion fx Assessment/Plan: flexeril pt Code(s): M54.5 - LOW BACK PAIN Condition: Guarded - Instructions Diet, Activity, Other Instructions: Low sodium diet Thoracolumbosacral Orthosis brace daily for 3 months -F/U with Neurosurgery Dr Jayden Cadet at [phone] Referrals: Ziggy Saunders MD [Primary Care Provider] - - Home Medications Comprehensive Discharge Medication List: Ambulatory Orders Aspirin [Baby Aspirin] 81 mg PO DAILY 02/27/11 Amlodipine Besylate/Valsartan [Amlodipine-Valsartan 10-160 mg] 1 each PO HS 09/02 Atorvastatin Ca [Lipitor] 20 mg PO HS 07/26/15 Cholecalciferol (Vitamin D3) [Vitamin D3 -] 1,000 unit PO HS 07/26/15 Metoprolol Succinate [Toprol XL -] 25 mg PO HS 07/26/15 Cyclobenzaprine HCl [Flexeril -] 5 mg PO TID #90 tablet 01/29/17 Docusate Sodium [Colace -] 100 mg PO BID #60 capsule 01/29/17 Ibuprofen [Motrin -] 400 mg PO Q6H PRN #120 tablet 01/29/17
[2017-02-06] MEDS ORDERED: PT OWN MED DRAWER 7, Y5N ONE (10:40)
[2017-02-06] MEDS: CHOLECALCIFEROL (VITAMIN D3) 1,000 UNIT TABLET (FP) PO SCH (10:54)
[2017-02-06] MEDS: VALSARTAN 160 MG TABLET (UD) PO SCH (10:54)
[2017-02-06] MEDS: DOCUSATE SODIUM 100 MG CAPSULE (FP) PO SCH ×2 (10:54→21:10)
[2017-02-06] MEDS: METOPROLOL SUCCINATE 25 MG TAB.SR.24H (FP) PO SCH (10:54)
[2017-02-06] MEDS: POLYETHYLENE GLYCOL 3350 119 GM BTL PO SCH (10:54)
[2017-02-06] MEDS: HEPARIN NA (PORCINE) 5,000 UNITS/ML 1ML VIAL SQ SCH ×2 (10:54→21:10)
[2017-02-06 15:13] LABS: MCH 30.2 pg (25.7-33.7); MCHC 32.7 g/dl (32.0-36.0); MEAN CELL VOLUME 92.4 fl (80-96); MEAN PLT VOLUME 7.1 fl (7.5-11.1); PLATELET COUNT 332 K/MM3 (134-434); RDW 13.3 % (11.6-15.6); WHITE BLOOD COUNT 8.7 K/mm3 (4.0-10.0)
[2017-02-06] MEDS: ATORVASTATIN CA 20 MG TABLET (FP) PO SCH (21:09)
[2017-02-07] MEDS: ALBUTEROL SO4 2.5/IPRATROPIUM 0.5 INH SOL 3 ML VIAL.NEB. NEB SCH ×2 (00:35→07:30)
[2017-02-07 06:11] LABS: SERUM IRON 27 ug/dL (27-139); TOTAL IRON BINDING CAPACITY 180 ug/dL (250-450); UIBC 153 ug/dL (118-369)
[2017-02-07] MEDS: GABAPENTIN 100 MG CAPSULE (FP) PO SCH ×3 (06:22→21:36)
--- NOTE | 2017-02-07 07:36 | DS ---
Physical Examination Vital Signs: Vital Signs Temperature 99.3 F 02/07/17 06:00 Pulse Rate 71 02/07/17 06:00 Respiratory Rate 18 02/07/17 06:00 Blood Pressure 121/62 02/07/17 06:00 O2 Sat by Pulse Oximetry (%) 96 02/06/17 21:00 Neck: Yes: Other (COLLAR) Cardiovascular: Yes: S1, S2 Respiratory: Yes: Diminished Gastrointestinal: Yes: Normal Bowel Sounds, Soft Musculoskeletal: Yes: Back Pain, Muscle Weakness Labs: CBC, BMP 02/06/17 14:30 02/06/17 06:30 Discharge Summary Reason For Visit: INTRACTABLE LOW BACK PAIN Current Active Problems Cervical spinal cord compression (Acute) Compression fracture (Acute) Elevated troponin (Acute) HTN (hypertension) (Acute) Intractable low back pain (Acute) Hospital Course: 87-year-old female with a history of hypertension presents to the emergency department complaining of right sided lumbar paravertebral tenderness. Pain is described as 8/10 dull nonradiating intermittent discomfort. Patient states she slipped and fell 2 days ago when she reached forward to grab her hamper. Patient denies any head injuries, dizziness, lightheadedness, headaches, facial pain, neck pains, chest pain, shortness of breath, abdominal pains, bladder or bowel dysfunction. The pain is exacerbated with movement and there are minimal relief at rest. 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 The patient also has acute disc herniations at C45, C56 & C67 which severely narrow the cervical spinal canal and cause further cord compression with associated T2 signal change. The patient presented after a fall at home which followed a severe cervical pain and may be the events surrounding her acute disc herniations. She has good strength and only minimal numbness and tingling in her hands despite a fairly impressive Cervical MRI. - Past Medical History Cardiovascular: Yes: HTN, Hyperlipdemia Musculoskeletal: Yes: Osteoarthritis - Problems (1) Compression fracture Assessment/Plan: - Note: Operative Date: 02/01/17 Pre-Operative Diagnosis: cervical splondylosis with loss of lordosis Operation: Ceervical 5-6 corpectomy with pentecostal of lordosis and reconstruction using PEEK cage and anterior plating Implants: [employer] peek cage, anterior cervical plate and screws x 4 dvt pxx pain control oob to chair Code(s): [id number] - (2) Cervical spinal cord compression Assessment/Plan: DANNIE on board s/p surgery Operative Date: 02/01/17 Pre-Operative Diagnosis: cervical splondylosis with loss of lordosis Operation: Ceervical 5-6 corpectomy with pentecostal of lordosis and reconstruction using PEEK cage and anterior plating Implants: [employer] peek cage, anterior cervical plate and screws x 4 Surgeon: Jayden Cadet Building Construction Inspector: Jerica Poon Code(s): G95.20 - UNSPECIFIED CORD COMPRESSION (3) HTN (hypertension) Assessment/Plan: metoprolol and diovan Code(s): I10 - ESSENTIAL (PRIMARY) HYPERTENSION (4) Elevated troponin Assessment/Plan: repeat troponin is lower appreciate cardiology consult echo is pending on betablocker, statin Code(s): R74.8 - ABNORMAL LEVELS OF OTHER SERUM ENZYMES (5) Intractable low back pain/compresion fx Assessment/Plan: flexeril pt Code(s): M54.5 - LOW BACK PAIN Condition: Guarded PT NOT SAFE FOR HOME DISCHARGE--SNF--ADIRA DISCUSSED WITH PT AND AGREES Condition: Improved - Instructions Diet, Activity, Other Instructions: Low sodium diet Thoracolumbosacral Orthosis brace daily for 3 months -F/U with Neurosurgery Dr Jayden Cadet at [phone] Referrals: Ziggy Saunders MD [Primary Care Provider] - Jayden Cadet MD, FAANS [Staff Physician] - - Home Medications Comprehensive Discharge Medication List: Ambulatory Orders Aspirin [Baby Aspirin] 81 mg PO DAILY 02/27/11 Amlodipine Besylate/Valsartan [Amlodipine-Valsartan 10-160 mg] 1 each PO HS 09/02 Atorvastatin Ca [Lipitor] 20 mg PO HS 07/26/15 Cholecalciferol (Vitamin D3) [Vitamin D3 -] 1,000 unit PO HS 07/26/15 Metoprolol Succinate [Toprol XL -] 25 mg PO HS 07/26/15 Docusate Sodium [Colace -] 100 mg PO BID #60 capsule 01/29/17 Ibuprofen [Motrin -] 400 mg PO Q6H PRN #120 tablet 01/29/17
--- NOTE | 2017-02-07 09:58 | PN ---
Progress Note (short form) - Note Progress Note: Patient comfortably resting in bed this morning. Neurosurgically stable for discharge. All questions answered. I will see her in my office in February. Patient has contact information.
[2017-02-07] MEDS: ACETAMINOPHEN 325 MG TABLET (FP) PO PRN ×2 (10:00→21:36)
[2017-02-07] MEDS: HEPARIN NA (PORCINE) 5,000 UNITS/ML 1ML VIAL SQ SCH ×2 (10:10→21:34)
[2017-02-07] MEDS: CHOLECALCIFEROL (VITAMIN D3) 1,000 UNIT TABLET (FP) PO SCH (10:10)
[2017-02-07] MEDS: VALSARTAN 160 MG TABLET (UD) PO SCH (10:10)
[2017-02-07] MEDS: METOPROLOL SUCCINATE 25 MG TAB.SR.24H (FP) PO SCH (10:10)
[2017-02-07] MEDS: DOCUSATE SODIUM 100 MG CAPSULE (FP) PO SCH ×3 (10:10→21:44)
[2017-02-07] MEDS: POLYETHYLENE GLYCOL 3350 119 GM BTL PO SCH (10:11)
[2017-02-07] MEDS: ATORVASTATIN CA 20 MG TABLET (FP) PO SCH (21:36)
[2017-02-08] MEDS: GABAPENTIN 100 MG CAPSULE (FP) PO SCH ×2 (05:52→13:32)
[2017-02-08] MEDS: POLYETHYLENE GLYCOL 3350 119 GM BTL PO SCH (09:50)
[2017-02-08] MEDS: DOCUSATE SODIUM 100 MG CAPSULE (FP) PO SCH (09:50)
[2017-02-08] MEDS: HEPARIN NA (PORCINE) 5,000 UNITS/ML 1ML VIAL SQ SCH (09:50)
[2017-02-08] MEDS: METOPROLOL SUCCINATE 25 MG TAB.SR.24H (FP) PO SCH (09:50)
[2017-02-08] MEDS: CHOLECALCIFEROL (VITAMIN D3) 1,000 UNIT TABLET (FP) PO SCH (09:50)
[2017-02-08] MEDS: VALSARTAN 160 MG TABLET (UD) PO SCH (09:50)
--- NOTE | 2017-02-08 10:18 | PN ---
Progress Note, Physician Chief Complaint: cervical splondylosis with loss of lordosis Ceervical 5-6 corpectomy with christianity of lordosis and reconstruction using PEEK cage and anterior plating Lumbar compression fracture History of Present Illness: NAD, sitting in chair Patient expresses that she doesn't want to go to SNF, Neck collar on Soft waist brace on-patient was able to put it on herself Although, patient lives by herself, She states her daughter goes to work in the afternoon and will be their to help her in AM. Her daughter makes the meals and sends them down. She also has her grandson who is home all day who lives upstairs. - Current Medication List Current Medications: Active Medications Acetaminophen (Tylenol -) 650 mg PO Q4H PRN PRN Reason: FEVER OR PAIN Acetaminophen (Tylenol -) 325 mg PO Q6H PRN PRN Reason: PAIN Last Admin: 02/07/17 21:36 Dose: 325 mg Atorvastatin Calcium (Lipitor -) 20 mg PO HS [facility] Last Admin: 02/07/17 21:36 Dose: 20 mg Cholecalciferol (Vitamin D3 -) 1,000 unit PO DAILY [facility] Last Admin: 02/08/17 09:50 Dose: 1,000 unit Cyclobenzaprine HCl (Flexeril -) 5 mg PO TID PRN PRN Reason: BACK PAIN Docusate Sodium (Colace -) 100 mg PO BID [facility] Last Admin: 02/08/17 09:50 Dose: 100 mg Gabapentin (Neurontin -) 100 mg PO TID [facility] Last Admin: 02/08/17 05:52 Dose: 100 mg Heparin Sodium (Porcine) (Heparin -) 5,000 unit SQ BID [facility] Last Admin: 02/08/17 09:50 Dose: 5,000 unit Metoprolol Succinate (Toprol Xl -) 25 mg PO DAILY [facility] Last Admin: 02/08/17 09:50 Dose: 25 mg Polyethylene Glycol (Miralax (For Daily Use) -) 17 gm PO DAILY [facility] Last Admin: 02/08/17 09:50 Dose: Not Given Valsartan (Diovan -) 160 mg PO DAILY [facility] Last Admin: 02/08/17 09:50 Dose: 160 mg - Objective Vital Signs: Vital Signs Temperature 98.4 F 02/08/17 09:07 Pulse Rate 80 02/08/17 09:07 Respiratory Rate 20 02/08/17 09:07 Blood Pressure 143/68 02/08/17 09:07 O2 Sat by Pulse Oximetry (%) 100 02/07/17 21:00 Constitutional: Yes: Well Nourished, No Distress, Calm Cardiovascular: Yes: Regular Rate and Rhythm Respiratory: Yes: Regular Gastrointestinal: Yes: WNL Musculoskeletal: Yes: Back Pain (neck and lumbar spine), Muscle Pain Edema: No Peripheral Pulses WNL: Yes Neurological: Yes: Alert, Oriented Psychiatric: Yes: Alert, Oriented Labs: CBC, BMP 02/06/17 14:30 02/06/17 06:30 INR, PTT INR 1.26 (0.82-1.09) H 01/31/17 17:25 Problem List - Problems (1) Compression fracture Assessment/Plan: -seen by neurology and neurosurgery -seen by PT walked 150 ft with light 1 person guarding -pain improved -lives at home alone with her daughter on the first floor Code(s): [id number] - (2) Intractable low back pain Assessment/Plan: -intermittent pain feeling like electric current down her right leg -tolerating of gabapentin Code(s): M54.5 - LOW BACK PAIN (3) Cervical spinal cord compression Assessment/Plan: -neurosurgery discussed with pt - cervical spondylosis with loss of lordosis -Had Cervical 5-6 corpectomy with christianity of lordosis and reconstruction using PEEK cage and anterior plating Implants: [employer] peek cage, anterior cervical plate and screws x 4 Code(s): G95.20 - UNSPECIFIED CORD COMPRESSION Assessment/Plan see problem list
--- NOTE | 2017-02-08 12:55 | DS ---
Physical Examination Vital Signs: Vital Signs Temperature 98.4 F 02/08/17 09:07 Pulse Rate 80 02/08/17 09:07 Respiratory Rate 20 02/08/17 09:07 Blood Pressure 143/68 02/08/17 09:07 O2 Sat by Pulse Oximetry (%) 100 02/07/17 21:00 Constitutional: Yes: Well Nourished, No Distress, Calm Cardiovascular: Yes: Regular Rate and Rhythm Respiratory: Yes: Regular Musculoskeletal: Yes: Back Pain, Other (neck pain) Extremities: Yes: WNL Edema: No Peripheral Pulses WNL: Yes Neurological: Yes: Alert, Oriented Psychiatric: Yes: Alert, Oriented Labs: CBC, BMP 02/06/17 14:30 02/06/17 06:30 Discharge Summary Reason For Visit: INTRACTABLE LOW BACK PAIN Current Active Problems Cervical spinal cord compression (Acute) Compression fracture (Acute) Elevated troponin (Acute) HTN (hypertension) (Acute) Intractable low back pain (Acute) Hospital Course: 87-year-old female with a history of hypertension presents to the emergency department complaining of right sided lumbar paravertebral tenderness. Pain is described as 8/10 dull nonradiating intermittent discomfort. Patient states she slipped and fell 2 days ago when she reached forward to grab her hamper. Patient denies any head injuries, dizziness, lightheadedness, headaches, facial pain, neck pains, chest pain, shortness of breath, abdominal pains, bladder or bowel dysfunction. The pain is exacerbated with movement and there are minimal relief at rest. 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 The patient also has acute disc herniations at C45, C56 & C67 which severely narrow the cervical spinal canal and cause further cord compression with associated T2 signal change. The patient presented after a fall at home which followed a severe cervical pain and may be the events surrounding her acute disc herniations. She has good strength and only minimal numbness and tingling in her hands despite a fairly impressive Cervical MRI. Condition: Stable - Instructions Diet, Activity, Other Instructions: Low sodium diet Thoracolumbosacral Orthosis brace daily for 3 months -F/U with Neurosurgery Dr Jayden Cadet at [phone] Referrals: Ziggy Saunders MD [Primary Care Provider] - Jayden Cadet MD, FAANS [Staff Physician] - Disposition: VNS/HOME HEALTH CARE - Home Medications Comprehensive Discharge Medication List: Ambulatory Orders Aspirin [Baby Aspirin] 81 mg PO DAILY 02/27/11 Atorvastatin Ca [Lipitor] 20 mg PO HS 07/26/15 Cholecalciferol (Vitamin D3) [Vitamin D3 -] 1,000 unit PO HS 07/26/15 Metoprolol Succinate [Toprol XL -] 25 mg PO HS 07/26/15 Albuterol 2.5/Ipratropium 0.5 [Duoneb -] 1 amp NEB QIDR amp 02/07/17 Cyclobenzaprine HCl [Flexeril -] 5 mg PO TID PRN tablet 02/07/17 Docusate Sodium [Colace -] 100 mg PO BID capsule 02/07/17 Gabapentin [Neurontin -] 100 mg PO TID capsule 02/07/17 Heparin - 5,000 unit SQ BID vial 02/07/17 Valsartan [Diovan] 160 mg PO DAILY tablet 02/07/17
[2017-02-08 15:11] VITALS: BP 126/55; PULSE 82; TEMP 98
== END 2017-02-08 17:23 | disposition home health service (06) | DRG 471 ==
LOC: JER 01:45 → JERBED 06:18 → J6S 09:04
PROVIDERS: ADMIT Family Medicine; ATTEND Family Medicine
PROC: 0RG207J Fusion of 2 or more Cervical Vertebral Joints with Autologous Tissue Substitute, Posterior Approach, Anterior Column, Open Approach (ICD-10-PCS; principal; 2017-01-26)
PROC: 0RB30ZZ Excision of Cervical Vertebral Disc, Open Approach (ICD-10-PCS; 2017-01-26)
DX: M50.222 Other cervical disc displacement at C5-C6 level (principal); S14.0XXA Concussion and edema of cervical spinal cord, initial encounter; M48.56XA Collapsed vertebra, not elsewhere classified, lumbar region, initial encounter for fracture; M50.10 Cervical disc disorder with radiculopathy, unspecified cervical region; M48.02 Spinal stenosis, cervical region; I10 Essential (primary) hypertension; M47.892 Other spondylosis, cervical region; W18.39XA Other fall on same level, initial encounter; E78.5 Hyperlipidemia, unspecified; W19.XXXA Unspecified fall, initial encounter; Y93.9 Activity, unspecified; Y92.098 Other place in other non-institutional residence as the place of occurrence of the external cause; Y99.9 Unspecified external cause status; M54.5 Low back pain
CPT/HCPCS: 36415; 71010-TC; 71020-TC; 72100-TC; 72125-TC; 72141-TC; 72148-TC; 76000-TC; 80053; 82550; 82553; 82728; 83540; 83550; 84484; 85025; 85027; 85610; 86850; 86900; 86901; 93005; 93010; 93306-TC; 94010; 94640; 94760; 97116-GP; 97161-GP; 99283-25; J1644

== ENCOUNTER 2017-07-11 20:50 | Inpatient (IN) | payer OTHER ==
--- NOTE | 2017-07-11 21:27 | PDOC ---
History of Present Illness - General History Source: Patient, Family Exam Limitations: No Limitations ( ) - History of Present Illness Initial Comments: 07/11/17 21:42 The patient is an 87 year old female with past medical history of hypertension, hyperlipidemia s/p cervical corpectomy (secondary to cervical spondylosis and loss of lordosis, 01/2017) who presents to the ED with change in mental status and headache that began this evening. As per patients daughter, the patient developed a left frontal/temporal headache this evening that has been accompanied by slowed responsiveness towards her family. They deny any slurred speech, acute change in mental status, focal neurological deficits, or LOC. The daughter adds that since the patients spinal surgery in January, she has been experiencing frequent headaches, but the patient reports this being the worse today. She denies any recent fevers, chills, NVD, chest pain, SOB, or urinary complaints. PCP: Dr. Saunders <Dilcia Rico - Last Filed: 07/12/17 00:27> - General History Source: Family (daughter) <Franc Rodríguez - Last Filed: 07/29/17 19:19> - General Chief Complaint: Altered Mental Status Stated Complaint: Altered Mental Status Time Seen by Provider: 07/11/17 21:23 Past History <Dilcia Rico - Last Filed: 07/12/17 00:27> - Past Medical History Anemia: No Asthma: No Cancer: Yes (LEFT BREAST 1981,RADICAL MASTECTOMY,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;BASAL CELL NOSE) Cardiac Disorders: No CVA: (TIA 2013) COPD: No CHF: No Dementia: No Diabetes: No GI Disorders: No Disorders: No HTN: Yes (2005) Hypercholesterolemia: Yes (2005) Liver Disease: No Seizures: No Thyroid Disease: No - Surgical History Abdominal Surgery: No Appendectomy: No Cardiac Surgery: No Cholecystectomy: No Lung Surgery: No Neurologic Surgery: No Orthopedic Surgery: No - Suicide/Smoking/Psychosocial Hx Smoking History: Never smoked Have you smoked in the past 12 months: No Hx Alcohol Use: No Drug/Substance Use Hx: No Substance Use Type: None Hx Substance Use Treatment: No <Franc Rodríguez - Last Filed: 07/29/17 19:19> - Past Medical History Allergies/Adverse Reactions: Allergies Allergy/AdvReac Type Severity Reaction Status Date / Time No Known Drug Allergies Allergy Verified 01/26/17 03:06 Home Medications: Ambulatory Orders Aspirin [Baby Aspirin] 81 mg PO DAILY 02/27/11 Atorvastatin Ca [Lipitor] 20 mg PO HS 07/26/15 Cholecalciferol (Vitamin D3) [Vitamin D3 -] 1,000 unit PO HS 07/26/15 Metoprolol Succinate [Toprol XL -] 25 mg PO HS 07/26/15 Albuterol 2.5/Ipratropium 0.5 [Duoneb -] 1 amp NEB QIDR amp 02/07/17 Docusate Sodium [Colace -] 100 mg PO BID capsule 02/07/17 Valsartan [Diovan] 160 mg PO DAILY tablet 02/07/17 Acetaminophen [Tylenol .Regular Strength -] 650 mg PO Q4H PRN tablet 07/16/17 Review of Systems - Review of Systems Able to Perform ROS?: Yes Comments:: 07/11/17 21:42 GENERAL/CONSTITUTIONAL: No fever or chills. No weakness. HEAD, EYES, EARS, NOSE AND THROAT: No change in vision. No ear pain or discharge. No sore throat. CARDIOVASCULAR: No chest pain or shortness of breath. RESPIRATORY: No cough, wheezing, or hemoptysis. GASTROINTESTINAL: No nausea, vomiting, diarrhea or constipation. GENITOURINARY: No dysuria, frequency, or change in urination. MUSCULOSKELETAL: No joint or muscle swelling or pain. No neck or back pain. SKIN: No rash NEUROLOGIC:(+) headache, delayed response No vertigo, loss of consciousness, or change in strength/sensation. ENDOCRINE: No increased thirst. No abnormal weight change. HEMATOLOGIC/LYMPHATIC: No anemia, easy bleeding, or history of blood clots. ALLERGIC/IMMUNOLOGIC: No hives or skin allergy. All Other Systems: Reviewed and Negative <Dilcia Rico - Last Filed: 07/12/17 00:27> *Physical Exam - Physical Exam Comments: 07/11/17 21:42 GENERAL: Awake, alert x2 and fully oriented, in no acute distress HEAD: No signs of trauma EYES: PERRLA, EOMI, sclera anicteric, conjunctiva clear ENT: Auricles normal inspection, hearing grossly normal, nares patent, oropharynx clear without exudates. Moist mucosa NECK: Normal ROM, supple, no lymphadenopathy, JVD, or masses LUNGS: Breath sounds equal, clear to auscultation bilaterally. No wheezes, and no crackles HEART: Regular rate and rhythm, normal S1 and S2, no murmurs, rubs or gallops ABDOMEN: Soft, nontender, normoactive bowel sounds. No guarding, no rebound. No masses EXTREMITIES: 5/5 strength in bilateral upper and lower extremities. Normal range of motion, no edema. No clubbing or cyanosis. No cords, erythema, or tenderness NEUROLOGICAL: Cranial nerves II through XII grossly intact. Normal speech, normal gait SKIN: Warm, Dry, normal turgor, no rashes or lesions noted. <Dilcia Rico - Last Filed: 07/12/17 00:27> Heart Score/ECG Review - ECG Intrepretation Comment:: 07/12/17 00:24 EKG obtained at 0:16 Normal sinus at 69 bpm <Dilcia Rico - Last Filed: 07/12/17 00:27> ED Treatment Course - LABORATORY CBC & Chemistry Diagram: 07/11/17 22:20 07/11/17 22:20 - RADIOLOGY Radiograph Interpretation: 07/12/17 00:[address] as reviewed by Dr. Menjivar reports no definite interval change since prior study and no acute intracranial pathology. Age related volume loss and microvascular ischemic changes and chronic infarctions as seen in prior scans. C-spine CT as reviewed by Dr. Menjivar reports no fracture, s/p multilevel corpectomies and instrumented fusion from C4-C7 with unchanged alignment. Cervical spondylosis with multi level canal and neural foraminal stenosis <Dilcia Rico - Last Filed: 07/12/17 00:27> - LABORATORY CBC & Chemistry Diagram: 07/12/17 08:45 07/15/17 10:10 <Franc Rodríguez - Last Filed: 07/29/17 19:19> Medical Decision Making - Medical Decision Making 07/12/17 00:27 Microblog sent to [facility], awaiting call back <Dilcia Rico - Last Filed: 07/12/17 00:27> - Medical Decision Making 07/29/17 19:19 Dr. Rodríguez: The scribe's documentation has been prepared under my direction and personally reviewed by me in its entirery. I confirm that the note above accurately reflects all work, treatment, procedures, and medical decision making performed by me. <Franc Rodríguez - Last Filed: 07/29/17 19:19> *DC/Admit/Observation/Transfer - Attestations Scribe Attestion: 07/11/17 21:44 Documentation prepared by Dilcia Rico, acting as medical nurse for Franc Rodríguez DO. <Dilcia Rico - Last Filed: 07/12/17 00:27> - Discharge Dispostion Decision to Admit order: Yes <Franc Rodríguez - Last Filed: 07/29/17 19:19> Diagnosis at time of Disposition: Altered mental status, Elevated troponin, Headache - Discharge Dispostion Disposition: HOME Condition at time of disposition: Stable
[2017-07-11] MEDS ORDERED: ONDANSETRON 4 MG/2 ML VIAL IVPUSH STA (21:29)
[2017-07-11] MEDS ORDERED: ACETAMINOPHEN 325 MG TABLET (FP) PO ONE (21:29)
[2017-07-11] MEDS ORDERED: ONDANSETRON 4 MG/2 ML VIAL ONE (21:53)
[2017-07-11] MEDS ORDERED: ACETAMINOPHEN 325 MG TABLET (FP) ONE (21:53)
[2017-07-11 22:26] LABS: BASO % 0.6 % (0-2.0); EOS % 5.2 % (0-4.5); HEMATOCRIT 39.1 % (32.4-45.2); HEMOGLOBIN 12.8 GM/dL (10.7-15.3); MCHC 32.8 g/dl (32.0-36.0); MEAN CELL VOLUME 91.6 fl (80-96); MEAN PLT VOLUME 7.4 fl (7.5-11.1); MONO % 9.1 % (3.8-10.2); NEUT % 62.1 % (42.8-82.8); PLATELET COUNT 192 K/MM3 (134-434); RBC 4.27 M/mm3 (3.60-5.2); RDW 13.8 % (11.6-15.6); URINE APPEARANCE CLEAR; URINE BILIRUBIN NEGATIVE (<2.0 mg/dL); URINE COLOR STRAW; URINE GLUCOSE (UA) NEGATIVE (NEGATIVE); URINE KETONE NEGATIVE (NEGATIVE); URINE LEUK ESTERASE NEGATIVE (NEGATIVE); URINE NITRITE NEGATIVE (NEGATIVE); URINE PROTEIN NEGATIVE (NEGATIVE); URINE UROBILINOGEN NEGATIVE mg/dL (0.2-1.0)
[2017-07-11 22:55] LABS: ALBUMIN 3.7 g/dl (3.4-5.0); ANION GAP 7 (8-16); BILIRUBIN,TOTAL 0.7 mg/dL (0.2-1.0); BLOOD UREA NITROGEN 18 mg/dL (7-18); CALCIUM 8.8 mg/dL (8.5-10.1); CHLORIDE 111 mmol/L (98-107); CO2 23 mmol/L (21-32); CREATININE 1.3 mg/dL (0.55-1.02); GLUCOSE,RANDOM 123 mg/dL (74-106); LIPASE 96 U/L (73-393); MAGNESIUM 2.4 mg/dL (1.8-2.4); POTASSIUM 4.3 mmol/L (3.5-5.1); SGOT/AST 15 U/L (15-37); SGPT/ALT 19 U/L (12-78); SODIUM 141 mmol/L (136-145); TOT PROT 7.5 g/dl (6.4-8.2)
[2017-07-11 22:58] LABS: ALK PHOS 119 U/L (45-117)
[2017-07-12] MEDS ORDERED: ONDANSETRON 4 MG/2 ML VIAL IVPUSH STA (00:20)
[2017-07-12] MEDS ORDERED: morphine CARPU-JECT 2 MG/1 ML DISP.SYRIN IVPUSH ONE (00:20)
[2017-07-12] MEDS ORDERED: ONDANSETRON 4 MG/2 ML VIAL ONE (00:47)
[2017-07-12] MEDS ORDERED: morphine SULFATE 4 MG/ML VIAL ONE (00:47)
--- NOTE | 2017-07-12 02:28 | HP ---
CHIEF COMPLAINT: HEADACHE, CHANGE IN MENTAL STATUS PCP: Nicky HISTORY OF PRESENT ILLNESS: THis is an 87 year old female with a past medical history significant for HTN, HLD, TIA, recent cervical instrumentation 01/2017 presented to the ED with headache and altered mental status. Family no longer present but as per ED note , pt's daughter reported the patient developed a left frontal/temporal headache this evening that has been accompanied by slowed responsiveness towards her family. She also reported increased frequency of headaches since surgery in January. The patient denies any SOB, chest pain, palpitations. She reports headache has improved slightly with treatment in ED. 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 ETOH sister age 60, Cancer, pt can not remember what type Allergies No Known Drug Allergies Allergy (Verified 01/26/17 03:06) HOME MEDICATIONS: 3 Medication Instructions Recorded Aspirin [Baby Aspirin] 81 mg PO DAILY 02/27/11 Atorvastatin Ca [Lipitor] 20 mg PO HS 07/26/15 Cholecalciferol (Vitamin D3) 1,000 unit PO HS 07/26/15 [Vitamin D3 -] Metoprolol Succinate [Toprol XL -] 25 mg PO HS 07/26/15 Albuterol 2.5/Ipratropium 0.5 1 amp NEB QIDR amp 02/07/17 [Duoneb -] Cyclobenzaprine HCl [Flexeril -] 5 mg PO TID PRN tablet 02/07/17 Docusate Sodium [Colace -] 100 mg PO BID capsule 02/07/17 Gabapentin [Neurontin -] 100 mg PO TID capsule 02/07/17 Heparin - 5,000 unit SQ BID vial 02/07/17 Valsartan [Diovan] 160 mg PO DAILY tablet 02/07/17 Pt unsure of what medications she is currently taking. PCP will need to verify above list for accuracy in am REVIEW OF SYSTEMS CONSTITUTIONAL: Absent: fever, chills, diaphoresis, generalized weakness, malaise, loss of appetite, weight change HEENT: Absent: rhinorrhea, nasal congestion, throat pain, throat swelling, difficulty swallowing, mouth swelling, ear pain, eye pain, visual changes CARDIOVASCULAR: Absent: chest pain, syncope, palpitations, irregular heart rate, lightheadedness , peripheral edema RESPIRATORY: Absent: cough, shortness of breath, dyspnea with exertion, orthopnea, wheezing, stridor, hemoptysis GASTROINTESTINAL: Absent: abdominal pain, abdominal distension, nausea, vomiting, diarrhea, constipation, melena, hematochezia GENITOURINARY: Absent: dysuria, frequency, urgency, hesitancy, hematuria, flank pain, genital pain MUSCULOSKELETAL: Absent: myalgia, arthralgia, joint swelling, back pain, neck pain SKIN: Absent: rash, itching, pallor HEMATOLOGIC/IMMUNOLOGIC: Absent: easy bleeding, easy bruising, lymphadenopathy, frequent infections ENDOCRINE: Absent: unexplained weight gain, unexplained weight loss, heat intolerance, cold intolerance NEUROLOGIC: headache, mental status changes Absent: focal weakness or paresthesias, dizziness, unsteady gait, seizure, bladder or bowel incontinence PSYCHIATRIC: Absent: anxiety, depression, suicidal or homicidal ideation, hallucinations. PHYSICAL EXAMINATION GENERAL: Awake, alert, and oriented to person. Knows month but is unsure of year ; knows she is at [facility]. No acute distress noted. HEAD: Normal with no signs of trauma. EYES: Pupils equal, round and reactive to light, extraocular movements intact, sclera anicteric, conjunctiva clear. No lid lag. EARS, NOSE, THROAT: Ears normal, nares patent, oropharynx clear without exudates. Moist mucous membranes. NECK: Normal range of motion, supple without lymphadenopathy, JVD, or masses. LUNGS: Breath sounds equal, clear to auscultation bilaterally. No wheezes, and no crackles. No accessory muscle use. HEART: Regular rate and rhythm, normal S1 and S2 without murmur, rub or gallop. ABDOMEN: Soft, nontender, not distended, normoactive bowel sounds, no guarding, no rebound, no masses. No hepatomegaly or splenomegaly. MUSCULOSKELETAL: Normal range of motion at all joints. No bony deformities or tenderness. No CVA tenderness. UPPER EXTREMITIES: 2+ pulses, warm, well-perfused. No cyanosis. No clubbing. No peripheral edema. LOWER EXTREMITIES: 2+ pulses, warm, well-perfused. No calf tenderness. No peripheral edema. NEUROLOGICAL: Cranial nerves II-XII intact. Normal speech. Pt having difficulty remembering events and words. PSYCHIATRIC: Cooperative. Good eye contact. Appropriate mood and affect. SKIN: Warm, dry, normal turgor, no rashes or lesions noted, normal capillary refill. Laboratory Results - last 24 hr 3 07/11/17 07/11/17 07/11/17 22:20 22:20 22:20 WBC 5.0 D RBC 4.27 D Hgb 12.8 D Hct 39.1 D MCV 91.6 MCH 30.0 MCHC 32.8 RDW 13.8 Plt Count 192 D MPV 7.4 L Neutrophils % 62.1 Lymphocytes % 23.0 D Monocytes % 9.1 Eosinophils % 5.2 H Basophils % 0.6 Nucleated RBC % 0 Sodium 141 Potassium 4.3 Chloride 111 H Carbon Dioxide 23 Anion Gap 7 L BUN 18 Creatinine 1.3 H Creat Clearance w eGFR 38.84 Random Glucose 123 H Calcium 8.8 Magnesium 2.4 Total Bilirubin 0.7 AST 15 ALT 19 Alkaline Phosphatase 119 H Creatine Kinase 109 Troponin I 0.16 H Total Protein 7.5 Albumin 3.7 Lipase 96 Urine Color Straw Urine Appearance Clear Urine pH 7.0 Ur Specific [place] 1.006 Urine Protein Negative Urine Glucose (UA) Negative Urine Ketones Negative Urine Blood Negative Urine Nitrite Negative Urine Bilirubin Negative Urine Urobilinogen Negative Ur Leukocyte Esterase Negative Blood Type O POSITIVE Antibody Screen Negative Radiology Reports CT head without contrast IMPRESSION: 1. No definite interval change since 03/22/2011 CT. No acute intracranial hemorrhage, mass effects or hydrocephalus. 2. Generalized age- related volume loss, moderately severe microvascular ischemic changes and small chronic infarctions as above are similar to 03/22/2011 CT. Reported By: Blaze Menjivar DO 07/11/[address] cspine IMPRESSION: No evidence of acute fracture in the cervical spine. Status post multilevel corpectomies and anterior instrumented fusion from C4 through C7 as described above, with unchanged alignment. 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 Reported By: Blaze Menjivar DO 07/12/17 0000 ASSESSMENT/PLAN: 87yF with PMH HTN, HLD, TIA 2013, BrCA 1981 presented to the ED with headache and MS changes. headache, AMS - CT head negative - ? new TIA vs CVA - consider MRI brain - neurology consult - neurosurgery consult as headaches increased in frequency since cervical instrumentation KENNA? - mild bump in creatinine from 1 to 1.3 - trial gentle IV hydration - repeat BMP in am - renal consult if not improving. HTN/HLD - PCP to verify meds in am and order DVT PPX - heparin deferred for now, expected LOS <48h, reassess need if stays exceeds FEN - NS @ 75cc/hr - BMP in am - low sodium diet as tolerated Dispo: Pt currently requires further observation for management of her emergent condition. Visit type - Emergency Visit Emergency Visit: Yes ED Registration Date: 07/11/17 Care time: The patient presented to the Emergency Department on the above date and was hospitalized for further evaluation of their emergent condition. - New Patient This patient is new to me today: Yes Date on this admission: 07/12/17 - Critical Care Critical Care patient: No Hospitalist Screening - Colonoscopy Questionnaire Colonoscopy Questionnaire: Colonoscopy Questionnaire - Patient: 50 - 75 years old and never had a screening colonoscopy: No History of colon or rectal polyps, or CA: No History of IBD, Crohn's disease or UC: No History of abdominal radiation therapy as a child: No - Relative: 1 with colon or rectal CA, or polyps at age 60 or younger: Unknown Colon or rectal CA diagnosed at age 45 or younger: Unknown Multiple relatives with colon or rectal CA: Unknown - Outcome: Screening Result: Negative Screen
[2017-07-12] MEDS: SODIUM CHLORIDE 1,000 ML IV SCH (04:20)
[2017-07-12] MEDS ORDERED: ACETAMINOPHEN 325 MG TABLET (FP) PO ONE (06:39)
[2017-07-12] MEDS ORDERED: ACETAMINOPHEN 325 MG TABLET (FP) ONE ×2 (06:42→07:26)
[2017-07-12 08:49] LABS: BASO % 0.5 % (0-2.0); EOS % 1.5 % (0-4.5); HEMOGLOBIN 13.3 GM/dL (10.7-15.3); LYMPH % 11.6 % (8-40); MCH 30.9 pg (25.7-33.7); MCHC 33.4 g/dl (32.0-36.0); MEAN CELL VOLUME 92.7 fl (80-96); MEAN PLT VOLUME 7.1 fl (7.5-11.1); MONO % 7.1 % (3.8-10.2); NEUT % 79.3 % (42.8-82.8); PLATELET COUNT 182 K/MM3 (134-434); RBC 4.31 M/mm3 (3.60-5.2); RDW 13.9 % (11.6-15.6); WHITE BLOOD COUNT 7.2 K/mm3 (4.0-10.0)
--- NOTE | 2017-07-12 09:05 | CON.CARD ---
Consult Consult Specialty:: Cardiology Referred by:: Dr. Saunders Reason for Consultation:: elevated troponin - History of Present Illness Chief Complaint: AMS History of Present Illness: 87 year old woman h/o HTN, HLD, cervical corpectomy 01/2017 h/o chronic mildly elevated troponin seen on admission 01/2017 now admitted with AMS and headache and incidentally noted again to have a slightly elevated troponin. Pt seen and examined in the ER today in nad. Awake and alert but confused. Unable to provide a clear history. c/o headache. denies chest pain or sob. no palpitations. no pnd, orthopnea, or LE edema. 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: Peripheral Neuropathy Cardio/Vascular: Yes: HTN, Hyperlipdemia Musculoskeletal: Yes: Osteoarthritis - Alcohol/Substance Use Hx Alcohol Use: No - Smoking History Smoking history: Never smoked Have you smoked in the past 12 months: No - Social History History of Recent Travel: No Home Medications - Allergies Allergies/Adverse Reactions: Allergies Allergy/AdvReac Type Severity Reaction Status Date / Time No Known Drug Allergies Allergy Verified 01/26/17 03:06 - Home Medications Home Medications: Ambulatory Orders Aspirin [Baby Aspirin] 81 mg PO DAILY 02/27/11 Atorvastatin Ca [Lipitor] 20 mg PO HS 07/26/15 Cholecalciferol (Vitamin D3) [Vitamin D3 -] 1,000 unit PO HS 07/26/15 Metoprolol Succinate [Toprol XL -] 25 mg PO HS 07/26/15 Albuterol 2.5/Ipratropium 0.5 [Duoneb -] 1 amp NEB QIDR amp 02/07/17 Cyclobenzaprine HCl [Flexeril -] 5 mg PO TID PRN tablet 02/07/17 Docusate Sodium [Colace -] 100 mg PO BID capsule 02/07/17 Gabapentin [Neurontin -] 100 mg PO TID capsule 02/07/17 Heparin - 5,000 unit SQ BID vial 02/07/17 Valsartan [Diovan] 160 mg PO DAILY tablet 02/07/17 Family Disease History - Family Disease History Family History: Denies Review of Systems - Review of Systems Constitutional: denies: No Symptoms, Chills, Diaphoresis, Fever, Lethargy, Loss of Appetite, Malaise, Night Sweats, Unintentional Wgt. Loss, Weakness, Other Eyes: denies: No Symptoms, Blind Spots, Blurred Vision, Double Vision, Eye Pain , Floaters, Photophobia, Recent Change in Vision, Other HENT: denies: No Symptoms, Difficult Swallowing, Ear Discharge, Ear Pain, Epistaxis, Gingival Bleeding, Hearing Loss, Mouth Swelling, Nasal Congestion, Ocular Prosthesis, Throat Pain, Toothache, Ringing in Ears, Other Neck: denies: No Symptoms, Decreased ROM, Lumps, Pain on Movement, Stiffness, Swollen Glands, Tenderness, Other Cardiovascular: denies: No Symptoms, Chest Pain, Edema, Palpitations, Shortness of Breath, Other Respiratory: denies: No Symptoms, Cough, Exercise Intolerance, Hemoptysis, Orthopnea, PND, Snoring, SOB, SOB on Exertion, Wheezing, Other Gastrointestinal: denies: No Symptoms, Abdominal Pain, Bloating, Constipation, Diarrhea, Dysphagia, Indigestion, Melena, Nausea, Rectal Bleeding, Vomiting, Vomiting Blood, Other Genitourinary: denies: No Symptoms, Burning, Discharge, Dysuria, Flank Pain, Frequency, Hematuria, Incontinence, Lesions, Menses, Pain, Testicular Mass, Testicular Pain, Testicular Swelling, Urgency, Vaginal Bleeding, Other Breasts: denies: No Symptoms Reported, See HPI, Breast Implants, Discharge from Nipple, Lumps, Pain, Skin Changes, Other Musculoskeletal: denies: No Symptoms, Back Pain, Crepitus, Decreased ROM, Extremity Pain, Joint Pain, Joint Swelling, Muscle Pain, Muscle Cramps, Muscle Weakness, Other Integumentary: denies: No Symptoms, Blister, Bruising, Change in Color, Eczema, Erythema, Incision, Lesions, Lump, Pallor, Pruritis, Rash, Wound, Other Neurological: reports: Change in LOC, Confusion, Headache. denies: No Symptoms , Change in Speech, Dizziness, Incoordination, Numbness, Parasthesia, Pre- Existing Deficit, Seizure, Syncope, Tremors, Unsteady Gait, Weakness, Other Endocrine: denies: No Symptoms, Excessive Sweating, Flushing, Increased Hunger, Increased Thirst, Intolerance to Cold, Intolerance to Heat, Unexplained Weight Gain, Unexplained Weight Loss, Other Hematology/Lymphatic: denies: No Symptoms, Easily Bruised, Excessive Bleeding, Swollen Glands, Other - Risk Factors Known Risk Factors: Yes: Age, Hypercholesterolemia, Hypertension Vital Signs: Vital Signs Temperature 98.1 F 07/12/17 07:28 Pulse Rate 72 07/12/17 07:28 Respiratory Rate 95 H 07/12/17 07:28 Blood Pressure 128/65 07/12/17 07:28 O2 Sat by Pulse Oximetry (%) 95 07/12/17 07:28 Constitutional: Yes: Well Nourished, No Distress, Calm Eyes: Yes: WNL, Conjunctiva Clear, EOM Intact, PERRL HENT: Yes: WNL, Atraumatic, Normocephalic Neck: Yes: WNL, Supple, Trachea Midline Respiratory: Yes: WNL, Regular, CTA Bilaterally. No: Rales, Rhonchi, Wheezes Gastrointestinal: Yes: WNL, Normal Bowel Sounds, Soft. No: Distention, Tenderness Renal/: Yes: WNL Cardiovascular: Yes: WNL, Regular Rate and Rhythm. No: Bradycardia, Tachycardia , Pulse Irregular, Gallop, Rub, Varicosities JVD: No Carotid Bruit: No PMI: Non-Displaced Heart Sounds: Yes: S1, S2. No: Split S2, S3, S4, Clicks, Gallop, Rub, Bruit Murmur: No: Systolic Murmur, Diastolic Murmur Musculoskeletal: Yes: WNL Extremities: Yes: WNL Edema: No Peripheral Pulses WNL: Yes Peripheral Pulses: 2+ Left Doralis Pedis, 2+ Right Dorsalis Pedis Integumentary: Yes: WNL Neurological: Yes: Alert. No: Oriented Psychiatric: Yes: Alert. No: Oriented - Other Data Labs, Other Data: CBC, BMP 07/12/17 08:45 Troponin, BNP 07/11/17 07/12/17 22:20 03:10 Troponin I 0.16 H 0.17 H Troponin, BNP 07/11/17 07/12/17 22:20 03:10 Troponin I 0.16 H 0.17 H EKG-NSR 69bpm, nonspecific ST abnl Echo: Report Reviewed Imaging - Results Chest X-ray: Report Reviewed, Image Reviewed EKG: Report Reviewed, Image Reviewed Other: Report Reviewed, Image Reviewed Assessment/Plan 87 year old woman h/o HTN, HLD, cervical corpectomy 01/2017 h/o chronic mildly elevated troponin seen on admission 01/2017 now admitted with AMS and headache and incidentally noted again to have a slightly elevated troponin. Pt seen and examined in the ER today in nad. Awake and alert but confused. Unable to provide a clear history. c/o headache. denies chest pain or sob. no palpitations. no pnd, orthopnea, or LE edema. Elevated troponin -Unlikely ACS -no reported chest pain or sob -trop minimally elevated with normal CK level -appears to have mild chronically elevated troponin -ekg does not show ischemia -Echo 01/2017 showed normal LV systolic function no sig valvular abnl -cont medical therapy -no additional inpatient cardiac work up needed at this point -ok to dc tele Please call with any additional questions.
[2017-07-12 09:12] LABS: ANION GAP 8 (8-16); BLOOD UREA NITROGEN 16 mg/dL (7-18); CALCIUM 9.3 mg/dL (8.5-10.1); CHLORIDE 107 mmol/L (98-107); CO2 25 mmol/L (21-32); CREATININE 1.3 mg/dL (0.55-1.02); GLUCOSE,RANDOM 110 mg/dL (74-106); MAGNESIUM 2.4 mg/dL (1.8-2.4); PHOSPHOROUS 3.5 mg/dL (2.5-4.9); POTASSIUM 4.3 mmol/L (3.5-5.1); SODIUM 140 mmol/L (136-145)
--- NOTE | 2017-07-12 10:43 | EKG ---
Test Reason : Blood Pressure : / mmHG Vent. Rate : 069 BPM Atrial Rate : 069 BPM P-R Int : 162 ms QRS Dur : 100 ms QT Int : 428 ms P-R-T Axes : 052 046 038 degrees QTc Int : 458 ms NORMAL SINUS RHYTHM WHEN COMPARED WITH ECG OF 03-FEB-2017 20:25, NO SIGNIFICANT CHANGE WAS FOUND Confirmed by ALANNAH GARCIA MD ([id number]) on 07/12/2017 10:43:14 AM Referred By: Confirmed By:ALANNAH GARCIA MD
--- NOTE | 2017-07-12 12:28 | CON.NEURO ---
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: Peripheral Neuropathy Cardio/Vascular: Yes: HTN, Hyperlipdemia Musculoskeletal: Yes: Osteoarthritis - Alcohol/Substance Use Hx Alcohol Use: No - Smoking History Smoking history: Never smoked Have you smoked in the past 12 months: No - Social History History of Recent Travel: No Home Medications - Allergies Allergies/Adverse Reactions: Allergies Allergy/AdvReac Type Severity Reaction Status Date / Time No Known Drug Allergies Allergy Verified 01/26/17 03:06 - Home Medications Home Medications: Ambulatory Orders Aspirin [Baby Aspirin] 81 mg PO DAILY 02/27/11 Atorvastatin Ca [Lipitor] 20 mg PO HS 07/26/15 Cholecalciferol (Vitamin D3) [Vitamin D3 -] 1,000 unit PO HS 07/26/15 Metoprolol Succinate [Toprol XL -] 25 mg PO HS 07/26/15 Albuterol 2.5/Ipratropium 0.5 [Duoneb -] 1 amp NEB QIDR amp 02/07/17 Cyclobenzaprine HCl [Flexeril -] 5 mg PO TID PRN tablet 02/07/17 Docusate Sodium [Colace -] 100 mg PO BID capsule 02/07/17 Gabapentin [Neurontin -] 100 mg PO TID capsule 02/07/17 Heparin - 5,000 unit SQ BID vial 02/07/17 Valsartan [Diovan] 160 mg PO DAILY tablet 02/07/17 Physical Exam-Neuro Vital Signs: Vital Signs Temperature 98.1 F 07/12/17 07:28 Pulse Rate 72 07/12/17 07:28 Respiratory Rate 95 H 07/12/17 07:28 Blood Pressure 128/65 07/12/17 07:28 O2 Sat by Pulse Oximetry (%) 95 07/12/17 07:28 Labs: CBC, BMP 07/12/17 08:45 07/12/17 08:45 Assessment/Plan cc Headache and confusion HPI 87 year old female history of HTN, HLD AND TIA . She has cervical surgery done by Dr Walker in january 2017. Patient came to ed with headhace and confusion. Patient describes heahdace as bifrontal area. As per history she had slow responsivenss towards her family. She was given morphine and antiemetic medication in ED. There is no seizure or focal neurological symptoms including dysphagia dyarthria, weakness or numbness. She has been afebrile in ED. 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 ETOH sister age 60, Cancer, pt can not remember what type HOME MEDICATIONS: 3 Medication Instructions Recorded Aspirin [Baby Aspirin] 81 mg PO DAILY 02/27/11 Atorvastatin Ca [Lipitor] 20 mg PO HS 07/26/15 Cholecalciferol (Vitamin D3) 1,000 unit PO HS 07/26/15 [Vitamin D3 -] Metoprolol Succinate [Toprol XL -] 25 mg PO HS 07/26/15 Albuterol 2.5/Ipratropium 0.5 1 amp NEB QIDR amp 02/07/17 [Duoneb -] Cyclobenzaprine HCl [Flexeril -] 5 mg PO TID PRN tablet 02/07/17 Docusate Sodium [Colace -] 100 mg PO BID capsule 02/07/17 Gabapentin [Neurontin -] 100 mg PO TID capsule 02/07/17 Heparin - 5,000 unit SQ BID vial 02/07/17 Valsartan [Diovan] 160 mg PO DAILY tablet 02/07/17 Neurological Examination Alert , follow command, She knows that she is in hospital, could not tell what date it is ( she got morphine and antiemetic Medication) EOMI, pupils reactive, no face asymmetry There is severe neck muscle spasm moving all extremity reflex are grade 2 generalized, sensation is normal gait not tested ct head is normal Assessment- I suspect delirium secondary to Severe headhace, which could be cervicogenic headache, clinically there is no evidence of meningitis, stroke , she may have some underlying cognitive difficulty and recent pain medication and severe pain may have cause delirium Plan-- waiting to see Neurosurgery - no need for Brain MRI at this time suggest to do b12,foalte tsh - stop gabapentin and flexeril for now - PT for neck Thanking you so much Arnulfo Woodward MD
--- NOTE | 2017-07-12 16:15 | PN ---
Progress Note, Physician Chief Complaint: AMS History of Present Illness: NAD, alert , oriented x1 - Current Medication List Current Medications: Active Medications Sodium Chloride (Normal Saline -) 1,000 mls @ 75 mls/hr IV ASDIR MANGO Last Admin: 07/12/17 04:20 Dose: 75 mls/hr - Objective Vital Signs: Vital Signs Temperature 98 F 07/12/17 14:49 Pulse Rate 74 07/12/17 14:57 Respiratory Rate 16 07/12/17 14:57 Blood Pressure 141/67 07/12/17 14:57 O2 Sat by Pulse Oximetry (%) 95 07/12/17 14:57 Constitutional: Yes: Well Nourished, No Distress, Calm Cardiovascular: Yes: Regular Rate and Rhythm Respiratory: Yes: Regular Neurological: Yes: Alert, Confusion Psychiatric: Yes: Alert Labs: CBC, BMP 07/12/17 08:45 07/12/17 08:45 Problem List - Problems (1) Altered mental status Assessment/Plan: -CT head and cervical spine unremarkable -seen by neurology -Awaiting to be seen by Neurosurgery -Hold gabapentin and cyclobenzaprine as per neurology -Avoid medications that may effect mental state -check B12, Folate, TSH, FT4 Code(s): R41.82 - ALTERED MENTAL STATUS, UNSPECIFIED (2) Headache Assessment/Plan: -Acetaminophen 650 mg po Q6H PRN -await neurosurgery consult Code(s): R51 - HEADACHE Assessment/Plan see problem list DVT prophylaxis
[2017-07-12 18:24] VITALS: BMI 28.3
[2017-07-12] MEDS ORDERED: CYCLOBENZAPRINE HCL 10 MG TABLET (FP) PO PRN (20:29)
[2017-07-12] MEDS ORDERED: ACETAMINOPHEN 325 MG TABLET (FP) PO PRN (20:50)
[2017-07-12] MEDS ORDERED: GABAPENTIN 100 MG CAPSULE (FP) PO SCH (22:00)
[2017-07-12] MEDS: HEPARIN NA (PORCINE) 5,000 UNITS/ML 1ML VIAL SQ SCH (22:10)
[2017-07-12] MEDS: ATORVASTATIN CA 20 MG TABLET (FP) PO SCH (22:10)
[2017-07-12] MEDS: CHOLECALCIFEROL (VITAMIN D3) 1,000 UNIT TABLET (FP) PO SCH (22:10)
[2017-07-12] MEDS: metoPROLOL SUCCINATE 25 MG TAB.SR.24H (FP) PO SCH (22:10)
[2017-07-12] MEDS: DOCUSATE SODIUM 100 MG CAPSULE (FP) PO SCH (22:10)
[2017-07-13] MEDS: HEPARIN NA (PORCINE) 5,000 UNITS/ML 1ML VIAL SQ SCH ×2 (09:31→22:27)
[2017-07-13] MEDS: ASPIRIN 81 MG CHEWABLE TABLETS PO SCH (09:31)
[2017-07-13] MEDS: VALSARTAN 160 MG TABLET (UD) PO SCH (09:31)
[2017-07-13] MEDS: DOCUSATE SODIUM 100 MG CAPSULE (FP) PO SCH ×2 (09:31→22:27)
[2017-07-13] MEDS: SODIUM CHLORIDE 1,000 ML IV SCH ×2 (09:34→22:26)
--- NOTE | 2017-07-13 13:12 | PN ---
Progress Note (short form) - Note Progress Note: 87 year old female history of HTN, HLD AND TIA . She has cervical surgery done by Dr Walker in january 2017. Patient came to ed with headhace and confusion. she is feeling much better, she was seen with her two daughter at bed side. Patient is almost back to normal Neurological Examination Alert , follow command, She was able to tell me month and year, and what hospital she is at , she missed exact date , daughter feels she is much better, complain of mild headache EOMI, pupils reactive, no face asymmetry There is severe neck muscle spasm moving all extremity reflex are grade 2 generalized, sensation is normal ct head is normal , b12,folate tsh were normal Assessment- I suspect delirium secondary to Severe headhace, which could be cervicogenic headache, clinically there is no evidence of meningitis, stroke , Plan-- waiting to see Neurosurgery - no need for Brain MRI at this time - No need for further testing or treatment, may follow outpatient for cognitive evaluation if needed - PT for neck Thanking you so much Arnulfo Woodward MD
--- NOTE | 2017-07-13 15:49 | PN ---
Physical Exam: SUBJECTIVE: Patient seen and examined. She is confused. She says she feels like she is standing while she is laying in bed. OBJECTIVE: Vital Signs Period Temp Pulse Resp BP Sys/Parra Pulse Ox Last 24 Hr 98.4 F-99.1 F 63-72 18-21 113-159/53-92 98-98 GENERAL: The patient is awake, alert, and in no acute distress. LUNGS: Breath sounds equal, clear to auscultation bilaterally, no wheezes, no crackles, no accessory muscle use. HEART: Regular rate and rhythm, S1, S2 without murmur, rub or gallop. ABDOMEN: Soft, nontender, nondistended, normoactive bowel sounds, no guarding, no rebound, no hepatosplenomegaly, no masses. EXTREMITIES: 2+ pulses, warm, well-perfused, no edema. Laboratory Results - last 24 hr 07/12/17 07/12/17 06:00 06:00 Vitamin B12 781 Serum Folate 26 H TSH 3.21 Free T4 1.09 Active Medications Generic Name Dose Route Start Last Admin Trade Name Qamar PRN Reason Stop Dose Admin Acetaminophen 650 mg 07/12/17 20:50 07/13/17 07:46 Tylenol - PO 650 mg Q4H PRN Administration FEVER Albuterol/Ipratropium 1 amp 07/13/17 20:45 Duoneb - NEB RQID MANGO Aspirin 81 mg 07/13/17 10:00 07/13/17 09:31 Asa - PO 81 mg DAILY MANGO Administration Atorvastatin Calcium 20 mg 07/12/17 22:00 07/12/17 22:10 Lipitor - PO 20 mg HS MANGO Administration Cholecalciferol 1,000 unit 07/12/17 22:00 07/12/17 22:10 Vitamin D3 - PO 1,000 unit HS MANGO Administration Docusate Sodium 100 mg 07/12/17 22:00 07/13/17 09:31 Colace - PO 100 mg BID MANGO Administration Heparin Sodium (Porcine) 5,000 unit 07/12/17 22:00 07/13/17 09:31 Heparin - SQ 5,000 unit BID MANGO Administration Sodium Chloride 1,000 mls @ 75 mls/hr 07/12/17 03:45 07/13/17 09:34 Normal Saline - IV 75 mls/hr ASDIR MANGO Administration Metoprolol Succinate 25 mg 07/12/17 22:00 07/12/17 22:10 Toprol Xl - PO 25 mg HS MANGO Administration Valsartan 160 mg 07/13/17 10:00 07/13/17 09:31 Diovan - PO 160 mg DAILY MANGO Administration ASSESSMENT/PLAN: 1. Acute metabolic encephalopathy - Improving - Neurontin, Flexeril held - TSH, FT4, B12 normal - Folate high 2. Headache - Possibly cervicogenic - Awaiting neurosurgery evaluation 3. HTN - Continue Diovan, Toprol XL 4. Hyperlipidemia - Continue Lipitor 5. History of TIA - Continue aspirin Visit type - Emergency Visit Emergency Visit: Yes ED Registration Date: 07/12/17 Care time: The patient presented to the Emergency Department on the above date and was hospitalized for further evaluation of their emergent condition. - New Patient This patient is new to me today: Yes Date on this admission: 07/13/17 - Critical Care Critical Care patient: No - Discharge Referral Referred to [facility] No
[2017-07-13] MEDS: ALBUTEROL SO4 2.5/IPRATROPIUM 0.5 INH SOL 3 ML VIAL.NEB. NEB SCH (20:50)
[2017-07-13] MEDS: ATORVASTATIN CA 20 MG TABLET (FP) PO SCH (22:27)
[2017-07-13] MEDS: metoPROLOL SUCCINATE 25 MG TAB.SR.24H (FP) PO SCH (22:27)
[2017-07-13] MEDS: CHOLECALCIFEROL (VITAMIN D3) 1,000 UNIT TABLET (FP) PO SCH (22:27)
--- NOTE | 2017-07-13 22:59 | CON.NEP ---
Consult Consult Specialty:: nephrolog Reason for Consultation:: azotemia - History of Present Illness History of Present Illness: presented to the ED with headache and MS changes. 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: Peripheral Neuropathy Cardio/Vascular: Yes: HTN, Hyperlipdemia ...: No Musculoskeletal: Yes: Osteoarthritis - Alcohol/Substance Use Hx Alcohol Use: No - Smoking History Smoking history: Never smoked Have you smoked in the past 12 months: No - Social History History of Recent Travel: No Home Medications - Allergies Allergies/Adverse Reactions: Allergies Allergy/AdvReac Type Severity Reaction Status Date / Time No Known Drug Allergies Allergy Verified 01/26/17 03:06 - Home Medications Home Medications: Ambulatory Orders Aspirin [Baby Aspirin] 81 mg PO DAILY 02/27/11 Atorvastatin Ca [Lipitor] 20 mg PO HS 07/26/15 Cholecalciferol (Vitamin D3) [Vitamin D3 -] 1,000 unit PO HS 07/26/15 Metoprolol Succinate [Toprol XL -] 25 mg PO HS 07/26/15 Albuterol 2.5/Ipratropium 0.5 [Duoneb -] 1 amp NEB QIDR amp 02/07/17 Cyclobenzaprine HCl [Flexeril -] 5 mg PO TID PRN tablet 02/07/17 Docusate Sodium [Colace -] 100 mg PO BID capsule 02/07/17 Gabapentin [Neurontin -] 100 mg PO TID capsule 02/07/17 Heparin - 5,000 unit SQ BID vial 02/07/17 Valsartan [Diovan] 160 mg PO DAILY tablet 02/07/17 Nephrology Consult - Height Height: 5 ft 3 in - Weight Weight: 159 lb 12.8 oz - BMI Body Mass Index (BMI): 28.3 - Lab Results CBC,BMP: CBC, BMP 07/12/17 08:45 07/12/17 08:45 Anion Gap: Anion Gap Anion Gap 8 (8-16) 07/12/17 08:45 - Physical Examination Vital Signs: Vital Signs Temperature 98.4 F 07/13/17 22:00 Pulse Rate 90 07/13/17 22:00 Respiratory Rate 22 07/13/17 22:00 Blood Pressure 160/84 07/13/17 22:00 O2 Sat by Pulse Oximetry (%) 98 07/13/17 09:00 Assessment/Plan 87 year old female with a past medical history -HTN, HLD, TIA, recent cervical instrumentation 01/2017 headache and altered mental status. 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
[2017-07-14] MEDS: ALBUTEROL SO4 2.5/IPRATROPIUM 0.5 INH SOL 3 ML VIAL.NEB. NEB SCH ×4 (07:50→20:53)
[2017-07-14] MEDS: ASPIRIN 81 MG CHEWABLE TABLETS PO SCH (09:25)
[2017-07-14] MEDS: VALSARTAN 160 MG TABLET (UD) PO SCH (09:25)
[2017-07-14] MEDS: DOCUSATE SODIUM 100 MG CAPSULE (FP) PO SCH ×2 (09:25→21:19)
[2017-07-14] MEDS: HEPARIN NA (PORCINE) 5,000 UNITS/ML 1ML VIAL SQ SCH ×2 (09:25→21:19)
--- NOTE | 2017-07-14 12:54 | CONSULT ---
Consult - text type - Consultation Consultation Note: NEUROSURGERY CONSULTATION Asked to see this pleasant 87-year-old female known to me from a prior admission. Miss Aguayo underwent cervical corpectomies and fusion for cervical spondylosis and acute neurological deficit in January 2017. Patient has some pain and presented with altered mental status. Patient has now resumed her baseline sensorium. She awakens easily to voice, and immediately recognized me and was aware of the date and her situation. I reviewed her CT scan of the head and cervical spine and find no acute process which mandates further inpatient management. Indeed the cervical spine CT shows good healing of bone within the cage. At this point there is no neurosurgical contraindication to discharge.
--- NOTE | 2017-07-14 13:53 | PN ---
Physical Exam: SUBJECTIVE: Patient seen and examined. Patient is less confused today. She has no complaints. OBJECTIVE: Vital Signs Period Temp Pulse Resp BP Sys/Parra Pulse Ox Last 24 Hr 98 F-98.5 F 57-92 20-22 113-160/53-84 98 GENERAL: The patient is awake, alert, and in no acute distress. LUNGS: Breath sounds equal, clear to auscultation bilaterally, no wheezes, no crackles, no accessory muscle use. HEART: Regular rate and rhythm, S1, S2 without murmur, rub or gallop. ABDOMEN: Soft, nontender, nondistended, normoactive bowel sounds, no guarding, no rebound, no hepatosplenomegaly, no masses. EXTREMITIES: 2+ pulses, warm, well-perfused, no edema. Active Medications Generic Name Dose Route Start Last Admin Trade Name Freq PRN Reason Stop Dose Admin Acetaminophen 650 mg 07/12/17 20:50 07/13/17 07:46 Tylenol - PO 650 mg Q4H PRN Administration FEVER Albuterol/Ipratropium 1 amp 07/13/17 20:45 07/14/17 11:30 Duoneb - NEB 1 amp RQID [facility] Administration Aspirin 81 mg 07/13/17 10:00 07/14/17 09:25 Asa - PO 81 mg DAILY [facility] Administration Atorvastatin Calcium 20 mg 07/12/17 22:00 07/13/17 22:27 Lipitor - PO 20 mg HS [facility] Administration Cholecalciferol 1,000 unit 07/12/17 22:00 07/13/17 22:27 Vitamin D3 - PO 1,000 unit HS [facility] Administration Docusate Sodium 100 mg 07/12/17 22:00 07/14/17 09:25 Colace - PO 100 mg BID [facility] Administration Heparin Sodium (Porcine) 5,000 unit 07/12/17 22:00 07/14/17 09:25 Heparin - SQ 5,000 unit BID [facility] Administration Sodium Chloride 1,000 mls @ 75 mls/hr 07/12/17 03:45 07/13/17 22:26 Normal Saline - IV 75 mls/hr ASDIR [facility] Administration Metoprolol Succinate 25 mg 07/12/17 22:00 07/13/17 22:27 Toprol Xl - PO 25 mg HS [facility] Administration Valsartan 160 mg 07/13/17 10:00 07/14/17 09:25 Diovan - PO 160 mg DAILY [facility] Administration ASSESSMENT/PLAN: 1. Acute metabolic encephalopathy - Improving - Neurontin, Flexeril held - TSH, FT4, B12 normal - Folate high 2. Headache - Resolved 3. Acute kidney injury, mild - Creatinine stable - Continue IV fluid 4. HTN - Continue Diovan, Toprol XL 5. Hyperlipidemia - Continue Lipitor 6. History of TIA - Continue aspirin 7. Cervical spondylosis - s/p cervical corpectomies and fusion 01/2017 8. Stage 3 CKD 9. Disposition - PT eval - If able to ambulate and creatinine stable/improved, expect discharge tomorrow Visit type - Emergency Visit Emergency Visit: Yes ED Registration Date: 07/12/17 Care time: The patient presented to the Emergency Department on the above date and was hospitalized for further evaluation of their emergent condition. - New Patient This patient is new to me today: No - Critical Care Critical Care patient: No - Discharge Referral Referred to [facility] Med P.C.: No
[2017-07-14] MEDS: CHOLECALCIFEROL (VITAMIN D3) 1,000 UNIT TABLET (FP) PO SCH (21:19)
[2017-07-14] MEDS: metoPROLOL SUCCINATE 25 MG TAB.SR.24H (FP) PO SCH (21:19)
[2017-07-14] MEDS: ATORVASTATIN CA 20 MG TABLET (FP) PO SCH (21:20)
[2017-07-14] MEDS: SODIUM CHLORIDE 1,000 ML IV SCH (21:20)
--- NOTE | 2017-07-14 21:31 | PN ---
Progress Note (short form) - Note Progress Note: 87 year old female with a past medical history -HTN, HLD, TIA, recent cervical instrumentation 01/2017 headache and altered mental status. 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 Current Medications Acetaminophen (Tylenol -) 650 mg PO Q4H PRN PRN Reason: FEVER Last Admin: 07/13/17 07:46 Dose: 650 mg Albuterol/Ipratropium (Duoneb -) 1 amp NEB RQID [facility] Last Admin: 07/14/17 20:53 Dose: 1 amp Aspirin (Asa -) 81 mg PO DAILY [facility] Last Admin: 07/14/17 09:25 Dose: 81 mg Atorvastatin Calcium (Lipitor -) 20 mg PO HS [facility] Last Admin: 07/14/17 21:20 Dose: 20 mg Cholecalciferol (Vitamin D3 -) 1,000 unit PO HS [facility] Last Admin: 07/14/17 21:19 Dose: 1,000 unit Docusate Sodium (Colace -) 100 mg PO BID [facility] Last Admin: 07/14/17 21:19 Dose: 100 mg Heparin Sodium (Porcine) (Heparin -) 5,000 unit SQ BID [facility] Last Admin: 07/14/17 21:19 Dose: 5,000 unit Sodium Chloride (Normal Saline -) 1,000 mls @ 75 mls/hr IV ASDIR [facility] Last Admin: 07/14/17 21:20 Dose: 75 mls/hr Metoprolol Succinate (Toprol Xl -) 25 mg PO HS [facility] Last Admin: 07/14/17 21:19 Dose: 25 mg Valsartan (Diovan -) 160 mg PO DAILY [facility] Last Admin: 07/14/17 09:25 Dose: 160 mg Last Vital Signs Temp Pulse Resp BP Pulse Ox 98 F 80 20 121/73 98 07/14/17 21:00 07/14/17 21:00 07/14/17 21:00 07/14/17 21:00 07/13/17 21:00 CBC, BMP 07/12/17 08:45 07/12/17 08:45
[2017-07-15] MEDS: ALBUTEROL SO4 2.5/IPRATROPIUM 0.5 INH SOL 3 ML VIAL.NEB. NEB SCH ×4 (07:20→20:04)
[2017-07-15] MEDS: DOCUSATE SODIUM 100 MG CAPSULE (FP) PO SCH ×2 (09:37→22:05)
[2017-07-15] MEDS: ASPIRIN 81 MG CHEWABLE TABLETS PO SCH (09:37)
[2017-07-15] MEDS: VALSARTAN 160 MG TABLET (UD) PO SCH (09:37)
[2017-07-15] MEDS: HEPARIN NA (PORCINE) 5,000 UNITS/ML 1ML VIAL SQ SCH ×2 (09:38→22:07)
--- NOTE | 2017-07-15 09:56 | DS ---
Physical Examination Vital Signs: Vital Signs Temperature 98.9 F 07/15/17 09:54 Pulse Rate 72 07/15/17 09:54 Respiratory Rate 20 07/15/17 09:54 Blood Pressure 146/72 07/15/17 09:54 O2 Sat by Pulse Oximetry (%) 94 L 07/15/17 08:29 Cardiovascular: Yes: S1, S2 Respiratory: Yes: Regular, CTA Bilaterally Gastrointestinal: Yes: Normal Bowel Sounds, Soft Labs: CBC, BMP 07/12/17 08:45 07/12/17 08:45 Discharge Summary Reason For Visit: AMS ELEVATED TROPONIN LEVEL HEADACHE Current Active Problems Altered mental status (Acute) Elevated troponin (Acute) Headache (Acute) Hospital Course: THis is an 87 year old female with a past medical history significant for HTN, HLD, TIA, recent cervical instrumentation 01/2017 presented to the ED with headache and altered mental status. Family no longer present but as per ED note , pt's daughter reported the patient developed a left frontal/temporal headache this evening that has been accompanied by slowed responsiveness towards her family. She also reported increased frequency of headaches since surgery in January. She denies any SOB, chest pain, palpitations. Reports headache has improved slightly with treatment in ED. 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 Acute metabolic encephalopathy - Improving - Neurontin, Flexeril held - TSH, FT4, B12 normal - Folate high 2. Headache - Resolved 3. Acute kidney injury, mild - Creatinine stable - Continue IV fluid 4. HTN - Continue Diovan, Toprol XL 5. Hyperlipidemia - Continue Lipitor 6. History of TIA - Continue aspirin 7. Cervical spondylosis - s/p cervical corpectomies and fusion 01/2017 8. Stage 3 CKD 9. Disposition - PT eval - If able to ambulate and creatinine stable/improved, expect discharge tomorrow Condition: Stable - Instructions Referrals: Ziggy Saunders MD [Primary Care Provider] - 1 Week Disposition: HOME - Home Medications Comprehensive Discharge Medication List: Ambulatory Orders Aspirin [Baby Aspirin] 81 mg PO DAILY 02/27/11 Atorvastatin Ca [Lipitor] 20 mg PO HS 07/26/15 Cholecalciferol (Vitamin D3) [Vitamin D3 -] 1,000 unit PO HS 07/26/15 Metoprolol Succinate [Toprol XL -] 25 mg PO HS 07/26/15 Albuterol 2.5/Ipratropium 0.5 [Duoneb -] 1 amp NEB QIDR amp 02/07/17 Cyclobenzaprine HCl [Flexeril -] 5 mg PO TID PRN tablet 02/07/17 Docusate Sodium [Colace -] 100 mg PO BID capsule 02/07/17 Gabapentin [Neurontin -] 100 mg PO TID capsule 02/07/17 Valsartan [Diovan] 160 mg PO DAILY tablet 02/07/17
[2017-07-15 11:08] LABS: ALBUMIN 3.3 g/dl (3.4-5.0); ANION GAP 6 (8-16); BLOOD UREA NITROGEN 22 mg/dL (7-18); CALCIUM 8.7 mg/dL (8.5-10.1); CHLORIDE 114 mmol/L (98-107); CO2 22 mmol/L (21-32); CREATININE 1.1 mg/dL (0.55-1.02); GLUCOSE,RANDOM 134 mg/dL (74-106); SGOT/AST 26 U/L (15-37); SGPT/ALT 25 U/L (12-78); SODIUM 142 mmol/L (136-145); TOT PROT 6.6 g/dl (6.4-8.2)
[2017-07-15 11:12] LABS: ALK PHOS 104 U/L (45-117); BILIRUBIN,TOTAL 0.5 mg/dL (0.2-1.0)
[2017-07-15] MEDS: SODIUM CHLORIDE 1,000 ML IV SCH (14:27)
--- NOTE | 2017-07-15 15:58 | PN ---
Progress Note (short form) - Note Progress Note: discharge noted renal sono uremarkable no urinary retention 87 year old female with a past medical history -HTN, HLD, TIA, recent cervical instrumentation 01/2017 headache and altered mental status. 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
[2017-07-15] MEDS ORDERED: BISACODYL 10 MG SUPP.RECT PR ONE (17:50)
[2017-07-15] MEDS: ATORVASTATIN CA 20 MG TABLET (FP) PO SCH (22:05)
[2017-07-15] MEDS: CHOLECALCIFEROL (VITAMIN D3) 1,000 UNIT TABLET (FP) PO SCH (22:05)
[2017-07-15] MEDS: metoPROLOL SUCCINATE 25 MG TAB.SR.24H (FP) PO SCH (22:06)
[2017-07-16] MEDS: SODIUM CHLORIDE 1,000 ML IV SCH (06:27)
[2017-07-16] MEDS: ALBUTEROL SO4 2.5/IPRATROPIUM 0.5 INH SOL 3 ML VIAL.NEB. NEB SCH ×2 (08:52→11:47)
[2017-07-16 09:09] VITALS: BP 148/78; PULSE 68; TEMP 98.2
[2017-07-16] MEDS: HEPARIN NA (PORCINE) 5,000 UNITS/ML 1ML VIAL SQ SCH (10:02)
[2017-07-16] MEDS: ASPIRIN 81 MG CHEWABLE TABLETS PO SCH (10:03)
[2017-07-16] MEDS: VALSARTAN 160 MG TABLET (UD) PO SCH (10:03)
[2017-07-16] MEDS: DOCUSATE SODIUM 100 MG CAPSULE (FP) PO SCH (10:03)
--- NOTE | 2017-07-16 11:12 | PN ---
Progress Note, Physician Chief Complaint: AMS History of Present Illness: NAD, alert and oriented wants to go home walked with PT with supervision CT head unremarkable As per daughter patient was not on gabapentin and cyclobenzaprine at home - Current Medication List Current Medications: Active Medications Acetaminophen (Tylenol -) 650 mg PO Q4H PRN PRN Reason: FEVER Last Admin: 07/13/17 07:46 Dose: 650 mg Albuterol/Ipratropium (Duoneb -) 1 amp NEB RQID [facility] Last Admin: 07/16/17 08:52 Dose: 1 amp Aspirin (Asa -) 81 mg PO DAILY [facility] Last Admin: 07/16/17 10:03 Dose: 81 mg Atorvastatin Calcium (Lipitor -) 20 mg PO [facility] Last Admin: 07/15/17 22:05 Dose: 20 mg Cholecalciferol (Vitamin D3 -) 1,000 unit PO [facility] Last Admin: 07/15/17 22:05 Dose: 1,000 unit Docusate Sodium (Colace -) 100 mg PO BID [facility] Last Admin: 07/16/17 10:03 Dose: 100 mg Heparin Sodium (Porcine) (Heparin -) 5,000 unit SQ BID [facility] Last Admin: 07/16/17 10:02 Dose: 5,000 unit Sodium Chloride (Normal Saline -) 1,000 mls @ 75 mls/hr IV ASDIR [facility] Last Admin: 07/16/17 06:27 Dose: 75 mls/hr Metoprolol Succinate (Toprol Xl -) 25 mg PO [facility] Last Admin: 07/15/17 22:06 Dose: 25 mg Valsartan (Diovan -) 160 mg PO DAILY [facility] Last Admin: 07/16/17 10:03 Dose: 160 mg - Objective Vital Signs: Vital Signs Temperature 98.2 F 07/16/17 09:06 Pulse Rate 68 07/16/17 09:06 Respiratory Rate 18 07/16/17 09:06 Blood Pressure 148/78 07/16/17 09:06 O2 Sat by Pulse Oximetry (%) 95 07/16/17 09:00 Constitutional: Yes: Well Nourished, No Distress, Calm Cardiovascular: Yes: Regular Rate and Rhythm Respiratory: Yes: Regular Gastrointestinal: Yes: Normal Bowel Sounds, Soft Musculoskeletal: Yes: WNL Extremities: Yes: WNL Edema: No Peripheral Pulses WNL: Yes Neurological: Yes: Alert, Oriented Psychiatric: Yes: Alert, Oriented Labs: CBC, BMP 07/12/17 08:45 07/15/17 10:10 Problem List - Problems (1) Altered mental status Assessment/Plan: -CT head and cervical spine unremarkable -seen by neurology -Seen by Neurosurgery -B12, TSH, FT4-normal -Folate high -AMS 2/2 to Headache? Code(s): R41.82 - ALTERED MENTAL STATUS, UNSPECIFIED (2) Headache Assessment/Plan: -Acetaminophen 650 mg po Q6H PRN -Seen by neurosurgery Code(s): R51 - HEADACHE Assessment/Plan see problem list d/c home
== END 2017-07-16 01:35 | disposition home or self-care (01) | DRG 682 ==
LOC: JER 20:50 → JERBED 07-12 00:26 → UNDOADMOB 07-12 02:23 → JERBED 07-12 02:23 → J6S 07-12 17:35 → OBSVTOIN 07-12 20:34 → J6S 07-13 01:03
PROVIDERS: ADMIT Internal Medicine; ATTEND Family Medicine
DX: N17.9 Acute kidney failure, unspecified (principal); G93.41 Metabolic encephalopathy; R51 Headache; R41.82 Altered mental status, unspecified; E78.5 Hyperlipidemia, unspecified; I12.9 Hypertensive chronic kidney disease with stage 1 through stage 4 chronic kidney disease, or unspecified chronic kidney disease; N18.3 Chronic kidney disease, stage 3 (moderate); M47.892 Other spondylosis, cervical region; Z86.73 Personal history of transient ischemic attack (TIA), and cerebral infarction without residual deficits
CPT/HCPCS: 36415; 70450-TC; 71045-TC-FY; 72125-TC; 76775-TC; 76856-TC; 80048; 80053; 81003; 82550; 82553; 82607; 82746; 83690; 83735; 84100; 84439; 84443; 84484; 85025; 86850; 86900; 86901; 93005; 93010; 94640; 97116-GP; 97161-GP; 99284-25; G0378; J1644; J7030; J7620

== ENCOUNTER 2018-07-12 20:55 | Inpatient (IN) | payer OTHER | END 2018-07-17 17:54 | disposition home or self-care (01) | LOC: JER 20:55 → JERBED 07-13 00:07 → J4W 07-13 02:18 ==

== ENCOUNTER 2019-10-12 19:23 | Inpatient (IN) | payer OTHER ==
[2019-10-12 19:40] VITALS: BMI 27.8
--- NOTE | 2019-10-12 19:52 | PDOC ---
Attending Attestation - Resident Resident Name: Carson Romano - ED Attending Attestation I have performed the following: I have examined & evaluated the patient, The case was reviewed & discussed with the resident, I agree w/resident's findings & plan - HPI HPI: 10/12/19 21:54 see resident hpi - Physicial Exam PE: 10/12/19 21:54 see resident exam - Medical Decision Making 10/12/19 21:54 89-year-old female status post fall 2 days ago now with difficulty ambulating due to right flank and low back pain Plan for CT scan of the head cervical spine chest abdomen pelvis due to patient's age and point tenderness over the right posterior ribs Due to lack of home support will consider admission pending results Discharge - Discharge Information Problems reviewed: Yes Clinical Impression/Diagnosis: Intractable low back pain Condition: Fair - Follow up/Referral Referrals: Ziggy Saunders MD [Primary Care Provider] - - Patient Discharge Instructions - Post Discharge Activity
[2019-10-12] MEDS ORDERED: ACETAMINOPHEN 500 MG TABLET (FP) PO ONE (20:09)
[2019-10-12] MEDS ORDERED: LIDOCAINE 5% TOPICAL PATCH TP ONE (20:10)
--- NOTE | 2019-10-12 20:29 | PDOC ---
History of Present Illness - General Chief Complaint: Injury Stated Complaint: BACK PAIN Time Seen by Provider: 10/12/19 19:45 - History of Present Illness Initial Comments: 10/12/19 20:19 89yo F with PMH HTN, HLD, TIA BIBA from home for lower back pain for two days after a fall. Pt states she was walking in her garden with her walker, when its leg caught on something. She fell backwards and landed on her back. Denies headstrike or LOC. States she was able to get up with difficulty and walk afterwardsm but has had severe lower back spasms for the past two days. The pain is worse with deep breaths. Denies saddle anesthesia, incontinence, retention, fever, chills, headache, neck pain. PMH/PSH: as above Home Medication List Medication Instructions Recorded Confirmed Type Aspirin [Baby Aspirin] 81 mg PO DAILY 02/27/11 07/13/18 History Atorvastatin Ca [Lipitor] 20 mg PO HS 07/26/15 07/13/18 History Cholecalciferol (Vitamin D3) 1,000 unit PO HS 07/26/15 07/13/18 History [Vitamin D3 -] Metoprolol Succinate [Toprol XL -] 12.5 mg PO HS 07/26/15 07/13/18 History Allergies Allergy/AdvReac Type Severity Reaction Status Date / Time No Known Drug Allergies Allergy Verified 10/12/19 19:40 ROS: GENERAL/CONSTITUTIONAL: No fever or chills. No weakness. HEAD, EYES, EARS, NOSE AND THROAT: No change in vision. No ear pain or discharge. No sore throat. CARDIOVASCULAR: No chest pain or shortness of breath RESPIRATORY: No cough, wheezing, or hemoptysis. GASTROINTESTINAL: No nausea, vomiting, diarrhea or constipation. GENITOURINARY: No dysuria, frequency, or change in urination. MUSCULOSKELETAL: Lower back pain. No neck pain. SKIN: No rash NEUROLOGIC: No headache, vertigo, loss of consciousness, or change in stren gth/sensation. ENDOCRINE: No increased thirst. No abnormal weight change HEMATOLOGIC/LYMPHATIC: No anemia, easy bleeding, or history of blood clots. ALLERGIC/IMMUNOLOGIC: No hives or skin allergy. PE GENERAL: Awake, alert, and fully oriented, in no acute distress HEAD: No signs of trauma, normocephalic, atraumatic EYES: PERRLA, EOMI, sclera anicteric, conjunctiva clear ENT: Auricles normal inspection, hearing grossly normal, nares patent, oropharynx clear without exudates. Moist mucosa NECK: Normal ROM, supple, no lymphadenopathy, JVD, or masses LUNGS: No distress, speaks full sentences, clear to auscultation bilaterally HEART: Regular rate and rhythm, normal S1 and S2, no murmurs, rubs or gallops, peripheral pulses normal and equal bilaterally. ABDOMEN: Soft, nontender, normoactive bowel sounds. No guarding, no rebound. No masses EXTREMITIES : Normal inspection, Normal range of motion, no edema. No clubbing or cyanosis. NEUROLOGICAL: Cranial nerves II through XII grossly intact. Normal speech, normal gait, no focal sensorimotor deficits SKIN: Warm, Dry, normal turgor, no rashes or lesions noted Back: point tenderness at lower thoracic spine and right posterior lower ribs. Anterior pelvic tenderness Vital Signs Temp Pulse Resp BP Pulse Ox 98.1 F 101 H 18 146/87 97 10/12/19 19:32 10/12/19 19:32 10/12/19 19:32 10/12/19 19:32 10/12/19 19:32 MDM: 89yo F presenting two days after a fall with lower back pain. Exam notable for point tenderness at lower thoracic spine, right posterior lower ribs, and anterior pelvis. Differential includes spine fracture, rib fracture, blunt kidney injury, SDH, cervical spine fracture. -CT head, c-spine, C/A/P -CBC, CMP, UA -tylenol, lidoderm patch 10/12/19 22:57 Labs notable for elevated BUN/Cr (baseline) and UA indicative of UTI. Will cover with Ceftriaxone 1g IV. Due to Cr of 1.4 and patient's wished, CT C/A/P changed to w/o contrast Patient was in significant pain even after tylenol and lidoderm, so given 4mg morphine 10/13/19 00:15 Signed out to night team. Dispo pending CT reads Past History - Medical History Allergies/Adverse Reactions: Allergies Allergy/AdvReac Type Severity Reaction Status Date / Time No Known Drug Allergies Allergy Verified 10/12/19 19:40 Home Medications: Ambulatory Orders Aspirin [Baby Aspirin] 81 mg PO DAILY 02/27/11 Atorvastatin Ca [Lipitor] 20 mg PO HS 07/26/15 Cholecalciferol (Vitamin D3) [Vitamin D3 -] 1,000 unit PO HS 07/26/15 Metoprolol Succinate [Toprol XL -] 12.5 mg PO HS 07/26/15 Albuterol 2.5/Ipratropium 0.5 [Duoneb -] 1 amp NEB QIDR amp 02/07/17 Amlodipine Besylate [Norvasc -] 5 mg PO DAILY #30 tablet 07/16/18 Losartan Potassium [Cozaar -] 50 mg PO DAILY #30 tablet 07/16/18 Anemia: No Asthma: No Cancer: Yes (LEFT BREAST 1981,RADICAL MASTECTOMY,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;BASAL CELL NOSE) Cardiac Disorders: No CVA: Yes (TIA 2013) COPD: No CHF: No Dementia: No Diabetes: No GI Disorders: No Disorders: No HTN: Yes (2005) Hypercholesterolemia: Yes (2005) Liver Disease: No Seizures: No Thyroid Disease: No - Surgical History Abdominal Surgery: No Appendectomy: No Cardiac Surgery: No Cholecystectomy: No Lung Surgery: No Neurologic Surgery: No Orthopedic Surgery: No - Immunization History Immunization Up to Date: Yes - Psycho-Social/Smoking History Smoking History: Never smoked Have you smoked in the past 12 months: No Information on smoking cessation initiated: No - Substance Abuse Hx (Audit-C & DAST Scrn) How often the patient has a drink containing alcohol: Never Score: In Men: 4 or > Positive; In Women: 3 or > Positive: 0 Screen Result (Pos requires Nsg. Audit-10AR): Negative In the last yr the pt used illegal drug/Rx for NonMed reason: No Score: Yes response is considered Positive: 0 Screen Result (Positive result requires Nsg. DAST-10): Negative *Physical Exam - Vital Signs Last Vital Signs Temp Pulse Resp BP Pulse Ox 98.1 F 101 H 18 146/87 97 10/12/19 19:32 10/12/19 19:32 10/12/19 19:32 10/12/19 19:32 10/12/19 19:32 ED Treatment Course - LABORATORY CBC & Chemistry Diagram: 10/12/19 20:27 10/12/19 20:30 Discharge - Discharge Information Problems reviewed: Yes Clinical Impression/Diagnosis: Intractable low back pain Condition: Fair - Follow up/Referral - Patient Discharge Instructions - Post Discharge Activity
[2019-10-12] MEDS ORDERED: ACETAMINOPHEN 325 MG TABLET (FP) ONE (20:42)
[2019-10-12] MEDS ORDERED: LIDOCAINE 5% TOPICAL PATCH ONE (20:42)
[2019-10-12 20:55] LABS: BASO % 0.6 % (0-2.0); EOS % 1.3 % (0-4.5); HEMATOCRIT 40.5 % (32.4-45.2); HEMOGLOBIN 13.5 GM/dL (10.7-15.3); LYMPH % 7.6 % (8-40); MCH 31.3 pg (25.7-33.7); MCHC 33.4 g/dl (32.0-36.0); MEAN CELL VOLUME 93.7 fl (80-96); MEAN PLT VOLUME 7.7 fl (7.5-11.1); MONO % 8.1 % (3.8-10.2); NEUT % 82.4 % (42.8-82.8); PLATELET COUNT 189 K/MM3 (134-434); RBC 4.32 M/mm3 (3.60-5.2); RDW 13.8 % (11.6-15.6); WHITE BLOOD COUNT 10.2 K/mm3 (4.0-10.0)
[2019-10-12 21:31] LABS: ALBUMIN 3.7 g/dl (3.4-5.0); BLOOD UREA NITROGEN 21.9 mg/dL (7-18); CALCIUM 9.3 mg/dL (8.5-10.1); CREATININE 1.4 mg/dL (0.55-1.3); POTASSIUM 4.5 mmol/L (3.5-5.1); TOT PROT 7.9 g/dl (6.4-8.2)
[2019-10-12] MEDS ORDERED: LIDOCAINE PATCH REMOVAL MC SCH (22:00)
[2019-10-12 22:14] LABS: EPI CELLS 12 /uL (0-25.1); HYALINE CASTS 2 /uL (0-3.1); PH,URINE 5.5 (5.0-8.0); URINE APPEARANCE CLOUDY; URINE BACTERIA >9,000 /uL (0-1359); URINE BILIRUBIN NEGATIVE (NEGATIVE); URINE COLOR YELLOW; URINE GLUCOSE (UA) NEGATIVE (NEGATIVE); URINE KETONE NEGATIVE (NEGATIVE); URINE LEUK ESTERASE 3+ (NEGATIVE); URINE NITRITE POSITIVE (NEGATIVE); URINE PROTEIN TRACE (NEGATIVE); URINE RBC 11 /uL (0-23.9); URINE UROBILINOGEN 0.2 mg/dL (0.2-1.0); URINE WBC 572 /uL (0-25.8)
[2019-10-12] MEDS ORDERED: morphine CARPU-JECT 2 MG/1 ML DISP.SYRIN SQ ONE ×2 (22:18→23:59)
[2019-10-12] MEDS ORDERED: morphine SULFATE 4 MG/ML VIAL ONE (22:26)
[2019-10-12] MEDS ORDERED: CEFTRIAXONE 1,000 MG in DEXTROSE 5%-WATER - 50 ML IVPB ONE (23:44)
[2019-10-13] MEDS ORDERED: MORPHINE SULFATE 2 MG/ML VIAL ONE ×3 (00:01→09:32)
[2019-10-13] MEDS ORDERED: CEFTRIAXONE 1 GM/50 ML BAG ONE (00:19)
--- NOTE | 2019-10-13 00:57 | PDOC ---
*Physical Exam - Vital Signs Last Vital Signs Temp Pulse Resp BP Pulse Ox 98.1 F 101 H 18 146/87 97 10/12/19 19:32 10/12/19 19:32 10/12/19 19:32 10/12/19 19:32 10/12/19 19:32 ED Treatment Course - LABORATORY CBC & Chemistry Diagram: 10/14/19 07:45 10/14/19 07:45 - ADDITIONAL ORDERS Additional order review: Laboratory Results 10/12/19 10/12/19 22:00 20:30 Sodium 141 Potassium 4.5 Chloride 109 H Carbon Dioxide 22 Anion Gap 10 BUN 21.9 H Creatinine 1.4 H Est GFR (CKD-EPI)AfAm 38.78 Est GFR (CKD-EPI)NonAf 33.46 Random Glucose 118 H Calcium 9.3 Total Bilirubin 1.0 AST 30 ALT 25 Alkaline Phosphatase 115 Total Protein 7.9 Albumin 3.7 Urine Color Yellow Urine Appearance Cloudy Urine pH 5.5 D Ur Specific [place] 1.014 Urine Protein Trace Urine Glucose (UA) Negative Urine Ketones Negative Urine Blood Trace Urine Nitrite Positive H Urine Bilirubin Negative Urine Urobilinogen 0.2 Ur Leukocyte Esterase 3+ H Urine WBC (Auto) 572 Urine RBC (Auto) 11 Urine Casts (Auto) 2 U Epithel Cells (Auto) 12 Urine Bacteria (Auto) >9,000 10/12/19 20:27 RBC 4.32 MCV 93.7 MCHC 33.4 RDW 13.8 MPV 7.7 Neutrophils % 82.4 D Lymphocytes % 7.6 L D Monocytes % 8.1 Eosinophils % 1.3 Basophils % 0.6 - Medications Given in the ED: ED Medications Discontinued Medications Generic Name Dose Route Start Last Admin Trade Name Jaswinderq PRN Reason Stop Dose Admin Acetaminophen 975 mg 10/12/19 20:09 10/12/19 20:50 Tylenol - PO 10/12/19 20:10 975 mg ONCE ONE Administration Ceftriaxone Sodium 1,000 mg/ 50 mls @ 100 mls/hr 10/12/19 23:44 10/13/19 00:32 Dextrose IVPB 10/13/19 00:13 100 mls/hr ONCE ONE Administration Lidocaine 1 patch 10/12/19 20:10 10/12/19 20:50 Lidoderm Patch - TP 10/12/19 20:11 1 patch ONCE ONE Administration Morphine Sulfate 4 mg 10/12/19 22:18 10/12/19 23:08 Morphine Injection - SQ 10/12/19 22:19 4 mg ONCE ONE Administration Medical Decision Making - Medical Decision Making 10/13/19 00:15 Pt signed out by Dr. Romano - 89yo F presenting two days after a fall with lower back pain. Exam notable for point tenderness at lower thoracic spine, right posterior lower ribs, and anterior pelvis. Differential includes spine fracture, rib fracture, blunt kidney injury, SDH, cervical spine fracture. -CT head, c-spine, C/A/P -CBC, CMP, UA -tylenol, lidoderm patch Labs notable for elevated BUN/Cr (baseline) and UA indicative of UTI. Will cover with Ceftriaxone 1g IV. Due to Cr of 1.4 and patient's wishes, CT C/A/P changed to w/o contrast Patient was in significant pain even after tylenol and lidoderm, so given 4mg morphine 10/13/19 00:58 CT chest: atelectasis/fibrotic changes, nonspecific subtle bilateral patchy groundglass opacities, no pleural effusion or pneumothorax, CT a/p: The liver, gallbladder, pancreas, adrenal glands, and spleen are grossly unremarkable. Bilateral renal cortical scarring. Bilateral renal calcifications, likely vascular. No ureteral calculi or hydronephrosis. No AAA. No evidence for diverticulitis, small bowel obstruction, free fluid, or free air. A floppy cecum located in the left lower quadrant. Urinary bladder is intact. No acute fracture or dislocation C spine: Cervical spine demonstrate stable alignment. Surgical changes and degenerative changes again noted. No acute cervical spine fracture or dislocation. Right maxillary chronic sinus disease. CT head: There is cerebral atrophy. Chronic microvascular ischemic changes are noted. Chronic lacunar infarctions. No acute intracranial hemorrhage or acute infarction. No acute fracture CT lumbar spine: Lumbar spine demonstrates normal alignment. Degenerative changes noted. Moderate chronic appearing compression fracture of L2. No acute lumbar spine fracture or dislocation. Will admit for intractable pain, UTI Disposition Admit Discharge - Discharge Information Problems reviewed: Yes Clinical Impression/Diagnosis: Intractable low back pain Condition: Fair - Follow up/Referral - Patient Discharge Instructions - Post Discharge Activity
[2019-10-13] MEDS ORDERED: SODIUM CHLORIDE 1,000 ML IV SCH (03:00)
--- NOTE | 2019-10-13 03:24 | HP ---
CHIEF COMPLAINT: Right flank pain and low back pain HISTORY OF PRESENT ILLNESS: 89 years old with past medical history HTN, HLD, TIA, Breast Ca s/p L- Mastectomy, peripheral neuropathy presented to hospital with Right flank pain and lower back pain s/p fall 2 days ago. She denied syncopal episode or head trauma. She was walking in the garden with the walker and slipped and fell on her back. after that she had difficulty walking and c/o severe back and R flank pain. She denies fever, chills, nausea, incontinence, chest pain, shortness of breath, vomiting, dizziness, lightheadedness. ER course was notable for: (1) UA positive for UTI, IV ceftrixone was given (2) CT head, Ct c spine, CT chest, Ct abd, CT L spine were negative for acute fracture or abnormalities Recent Travel: No PAST MEDICAL HISTORY: as above PAST SURGICAL HISTORY: Social History: Smoking: Alcohol: Drugs: Family history : Non contributory Allergies No Known Drug Allergies Allergy (Verified 10/12/19 19:40) HOME MEDICATIONS: Home Medications Medication Instructions Recorded Aspirin [Baby Aspirin] 81 mg PO DAILY 02/27/11 Atorvastatin Ca [Lipitor] 20 mg PO HS 07/26/15 Cholecalciferol (Vitamin D3) 1,000 unit PO HS 07/26/15 [Vitamin D3 -] Metoprolol Succinate [Toprol XL -] 12.5 mg PO HS 07/26/15 Albuterol 2.5/Ipratropium 0.5 1 amp NEB QIDR amp 02/07/17 [Duoneb -] Amlodipine Besylate [Norvasc -] 5 mg PO DAILY #30 tablet 07/16/18 Losartan Potassium [Cozaar -] 50 mg PO DAILY #30 tablet 07/16/18 REVIEW OF SYSTEMS CONSTITUTIONAL: Absent: fever, chills, diaphoresis, generalized weakness, malaise, loss of appetite, weight change HEENT: Absent: rhinorrhea, nasal congestion, throat pain, throat swelling, difficulty swallowing, mouth swelling, ear pain, eye pain, visual changes CARDIOVASCULAR: Absent: chest pain, syncope, palpitations, irregular heart rate, lightheadedness, peripheral edema RESPIRATORY: Absent: cough, shortness of breath, dyspnea with exertion, orthopnea, wheezing, stridor, hemoptysis GASTROINTESTINAL: Absent: , abdominal distension, nausea, vomiting, diarrhea, constipation, melena, hematochezia + Right flank pain GENITOURINARY: Absent: dysuria, frequency, urgency, hesitancy, hematuria, flank pain, genital pain MUSCULOSKELETAL: Absent: myalgia, arthralgia, joint swelling,neck pain + back pain SKIN: Absent: rash, itching, pallor HEMATOLOGIC/IMMUNOLOGIC: Absent: easy bleeding, easy bruising, lymphadenopathy, frequent infections ENDOCRINE: Absent: unexplained weight gain, unexplained weight loss, heat intolerance, cold intolerance NEUROLOGIC: Absent: headache, focal weakness or paresthesias, dizziness, unsteady gait, seizure, mental status changes, bladder or bowel incontinence PSYCHIATRIC: Absent: anxiety, depression, suicidal or homicidal ideation, hallucinations. PHYSICAL EXAMINATION Vital Signs - 24 hr 10/12/19 10/13/19 19:32 02:24 Temperature 98.1 F Pulse Rate 101 H Pulse Rate [ 90 Left] Respiratory 18 20 Rate Blood Pressure 146/87 Blood Pressure 145/68 [Left Arm] cO2 Sat by Pulse 97 99 Oximetry (%) GENERAL: Awake, alert, and fully oriented, in mild distress due to pain HEAD: Normal with no signs of trauma. EYES: Pupils equal, round and reactive to light, extraocular movements intact, sclera anicteric, conjunctiva clear. No lid lag. EARS, NOSE, THROAT: Ears normal, nares patent, oropharynx clear without exudates. Moist mucous membranes. NECK: Normal range of motion, supple without lymphadenopathy, JVD, or masses. LUNGS: Breath sounds equal, clear to auscultation bilaterally. No wheezes, and no crackles. No accessory muscle use. HEART: Regular rate and rhythm, normal S1 and S2 without murmur, rub or gallop. ABDOMEN: Soft, R flank tenderness not distended, normoactive bowel sounds, no guarding, no rebound, no masses. No hepatomegaly or splenomegaly. MUSCULOSKELETAL: decreased range of motion - back right lower back and R flank tenderness, post lower rib tenderness UPPER EXTREMITIES: 2+ pulses, warm, well-perfused. No cyanosis. No clubbing. No peripheral edema. LOWER EXTREMITIES: 2+ pulses, warm, well-perfused. No calf tenderness. No peripheral edema. NEUROLOGICAL: Cranial nerves II-XII intact. Normal speech. PSYCHIATRIC: Cooperative. Good eye contact. Appropriate mood and affect. SKIN: Warm, dry, normal turgor, no rashes or lesions noted, normal capillary refill. Laboratory Results - last 24 hr 10/12/19 10/12/19 10/12/19 20:27 20:30 22:00 WBC 10.2 H RBC 4.32 Hgb 13.5 Hct 40.5 D MCV 93.7 MCH 31.3 MCHC 33.4 RDWxcvv 13.8 Plt Count 189 MPV 7.7 Absolute Neuts (auto) 8.4 H Neutrophils % 82.4 D Lymphocytes % 7.6 L D Monocytes % 8.1 Eosinophils % 1.3 Basophils % 0.6 Nucleated RBC % 0 Sodium 141 Potassium 4.5 Chloride 109 H Carbon Dioxide 22 Anion Gap 10 BUN 21.9 H Creatinine 1.4 H Est GFR (CKD-EPI)AfAm 38.78 Est GFR (CKD-EPI)NonAf 33.46 Random Glucose 118 H Calcium 9.3 Total Bilirubin 1.0 AST 30 ALT 25 Alkaline Phosphatase 115 Total Protein 7.9 Albumin 3.7 Urine Color Yellow Urine Appearance Cloudy Urine pH 5.5 D Ur Specific [place] 1.014 Urine Protein Trace Urine Glucose (UA) Negative Urine Ketones Negative Urine Blood Trace Urine Nitrite Positive H Urine Bilirubin Negative Urine Urobilinogen 0.2 Ur Leukocyte Esterase 3+ H Urine WBC (Auto) 572 Urine RBC (Auto) 11 Urine Casts (Auto) 2 U Epithel Cells (Auto) 12 Urine Bacteria (Auto) >9,000 ASSESSMENT/PLAN: s/p fall Musculoskelatal pain CKD UTI functional decline Dehydration HTN, HLD, TIA Admit to floor gentle hydration IV ceftriaxone 2 gram daily urine culture analgesia with morphine PT/rehab BP - controlled. resume home medications DVt ppx Fall precautions Bed rest , ambulate with assistance Family Medical History Family History: As Documented Visit type - Medication Review Med list reviewed for High Risk Meds patients 65 and older: Yes - Emergency Visit Emergency Visit: Yes ED Registration Date: 10/13/19 Care time: The patient presented to the Emergency Department on the above date and was hospitalized for further evaluation of their emergent condition. - New Patient This patient is new to me today: Yes Date on this admission: 10/13/19 - Critical Care Critical Care patient: No
[2019-10-13] MEDS: MORPHINE SULFATE 2 MG/ML VIAL IVPUSH PRN ×2 (04:28→10:07)
[2019-10-13] MEDS ORDERED: LIDOCAINE PATCH REMOVAL MC ONE (08:30)
[2019-10-13] MEDS ORDERED: ASPIRIN 81 MG CHEWABLE TABLETS ONE (09:27)
[2019-10-13] MEDS ORDERED: LOSARTAN POTASSIUM 50 MG TABLET (FP) ONE (09:30)
[2019-10-13] MEDS ORDERED: amLODIPine BESYLATE 5 MG TABLET (FP) ONE (09:30)
[2019-10-13] MEDS ORDERED: CEFTRIAXONE 2 GM/100 ML BAG IVPB ONE (09:31)
[2019-10-13] MEDS ORDERED: ENOXAPARIN NA (PORCINE) 40 MG/0.4 ML DISP.SYRIN SQ ONE (09:31)
[2019-10-13] MEDS: CEFTRIAXONE 2 GM-D5W BAG 2 GM/50 ML BAG IVPB SCH (10:00)
[2019-10-13] MEDS: ENOXAPARIN NA (PORCINE) 40 MG/0.4 ML DISP.SYRIN SQ SCH (10:00)
[2019-10-13] MEDS: LOSARTAN POTASSIUM 50 MG TABLET (FP) PO SCH (10:00)
[2019-10-13] MEDS: amLODIPine BESYLATE 5 MG TABLET (FP) PO SCH (10:00)
[2019-10-13] MEDS: ASPIRIN 81 MG CHEWABLE TABLETS PO SCH (10:00)
--- NOTE | 2019-10-13 10:16 | EKG ---
Test Reason : Blood Pressure : / mmHG Vent. Rate : 077 BPM Atrial Rate : 077 BPM P-R Int : 180 ms QRS Dur : 098 ms QT Int : 418 ms P-R-T Axes : 054 -33 078 degrees QTc Int : 473 ms NORMAL SINUS RHYTHM LEFT AXIS DEVIATION MODERATE VOLTAGE CRITERIA FOR LVH, MAY BE NORMAL VARIANT CANNOT RULE OUT ANTERIOR INFARCT , AGE UNDETERMINED ABNORMAL ECG WHEN COMPARED WITH ECG OF 13-JUL-2018 00:27, MINIMAL CRITERIA FOR ANTERIOR INFARCT ARE NOW PRESENT Confirmed by MD Lassiter Daniel ([id number]) on 10/13/2019 10:16:18 AM Referred By: Confirmed By:Shahid Lassiter MD
[2019-10-13] MEDS ORDERED: ACETAMINOPHEN 500 MG TABLET (FP) PO PRN ×2 (14:22→15:58)
--- NOTE | 2019-10-13 14:27 | PN ---
Progress Note, Physician Chief Complaint: Mechanical Fall UTI History of Present Illness: NAD unable to turn due to pain During exam severe pain Right mid abd CT chest: atelectasis/fibrotic changes, nonspecific subtle bilateral patchy groundglass opacities, no pleural effusion or pneumothorax, CT a/p: The liver, gallbladder, pancreas, adrenal glands, and spleen are grossly unremarkable. Bilateral renal cortical scarring. Bilateral renal calcifications, likely vascular. No ureteral calculi or hydronephrosis. No AAA. No evidence for diverticulitis, small bowel obstruction, free fluid, or free air. A floppy cecum located in the left lower quadrant. Urinary bladder is intact. No acute fracture or dislocation C spine: Cervical spine demonstrate stable alignment. Surgical changes and degenerative changes again noted. No acute cervical spine fracture or dislocation. Right maxillary chronic sinus disease. CT head: There is cerebral atrophy. Chronic microvascular ischemic changes are noted. Chronic lacunar infarctions. No acute intracranial hemorrhage or acute infarction. No acute fracture CT lumbar spine: Lumbar spine demonstrates normal alignment. Degenerative changes noted. Moderate chronic appearing compression fracture of L2. No acute lumbar spine fracture or dislocation. Received morphine 2 mg without any relief. - Current Medication List Current Medications: Active Medications Acetaminophen (Tylenol -) 1,000 mg PO Q6H PRN PRN Reason: PAIN Albuterol/Ipratropium (Duoneb -) 1 amp NEB [facility]IDR [facility] Amlodipine Besylate (Norvasc -) 5 mg PO DAILY [facility] Last Admin: 10/13/19 10:00 Dose: 5 mg Documented by: Aspirin (Asa -) 81 mg PO DAILY [facility] Last Admin: 10/13/19 10:00 Dose: 81 mg Documented by: Atorvastatin Calcium (Lipitor -) 20 mg PO [facility] Cholecalciferol (Vitamin D3 -) 1,000 unit PO [facility] Enoxaparin Sodium (Lovenox -) 40 mg SQ DAILY [facility] Last Admin: 10/13/19 10:00 Dose: 40 mg Documented by: Ceftriaxone Sodium (Ceftriaxone 2 Gm-D5w Bag) 2 gm in 50 mls @ 100 mls/hr IVPB DAILY [facility]; Protocol Last Admin: 10/13/19 10:00 Dose: 100 mls/hr Documented by: Sodium Chloride (Normal Saline -) 1,000 mls @ 50 mls/hr IV [facility] Stop: 10/14/19 02:55 Last Admin: 10/13/19 04:27 Dose: 50 mls/hr Documented by: Losartan Potassium (Cozaar -) 50 mg PO DAILY [facility] Last Admin: 10/13/19 10:00 Dose: 50 mg Documented by: Metoprolol Succinate (Toprol Xl -) 12.5 mg PO HS [facility] - Objective Vital Signs: Vital Signs Temperature 98.3 F 10/13/19 10:00 Pulse Rate 70 10/13/19 10:00 Respiratory Rate 14 10/13/19 10:00 Blood Pressure 190/93 H 10/13/19 10:00 O2 Sat by Pulse Oximetry (%) 99 10/13/19 10:00 Constitutional: Yes: Well Nourished, No Distress, Calm Respiratory: Yes: Regular, CTA Bilaterally Gastrointestinal: Yes: Normal Bowel Sounds, Soft Genitourinary: Yes: Incontinence Musculoskeletal: Yes: Back Pain, Muscle Weakness Extremities: Yes: WNL Edema: No Peripheral Pulses WNL: Yes Neurological: Yes: Alert, Oriented Psychiatric: Yes: Alert, Oriented Labs: CBC, BMP 10/12/19 20:27 10/12/19 20:30 Problem List - Problems (1) UTI (urinary tract infection) Assessment/Plan: -UA + nitrites -UC pending -Started on IV rocephin- continue -ID consult -Afebrile Problems reviewed: Yes Code(s): N39.0 - URINARY TRACT INFECTION, SITE NOT SPECIFIED (2) Fall Assessment/Plan: -CT chest: atelectasis/fibrotic changes, nonspecific subtle bilateral patchy groundglass opacities, no pleural effusion or pneumothorax, -CT a/p: The liver, gallbladder, pancreas, adrenal glands, and spleen are grossly unremarkable. Bilateral renal cortical scarring. Bilateral renal calcifications, likely vascular. No ureteral calculi or hydronephrosis. No AAA. No evidence for diverticulitis, small bowel obstruction, free fluid, or free air. A floppy cecum located in the left lower quadrant. Urinary bladder is intact. No acute fracture or dislocation -C spine: Cervical spine demonstrate stable alignment. Surgical changes and degenerative changes again noted. No acute cervical spine fracture or dislocation. Right maxillary chronic sinus disease. -CT head: There is cerebral atrophy. Chronic microvascular ischemic changes are noted. Chronic lacunar infarctions. No acute intracranial hemorrhage or acute infarction. No acute fracture -CT lumbar spine: Lumbar spine demonstrates normal alignment. Degenerative changes noted. Moderate chronic appearing compression fracture of L2. No acute lumbar spine fracture or dislocation. -Fall precautions -PT -Physiatry consult Problems reviewed: Yes Code(s): W19.XXXA - UNSPECIFIED FALL, INITIAL ENCOUNTER (3) Intractable low back pain Assessment/Plan: -Pain management consult -Acetaminophen 1 g Q6h PRN for pain 1-3 -Tramadol 50 mg po Q6H PRN for pain 4-6 -Oxycodone 5 mg po Q6H PRN for pain 7-10 -Lidoderm patch -Cyclobenzaprine 10 mg once and then TID PRN Problems reviewed: Yes Code(s): M54.5 - LOW BACK PAIN (4) KENNA (acute kidney injury) Assessment/Plan: -Likely 2/2 to UTI or mild dehydration -Received IVF in ER -D/C IVF, encouraged pO fluids -repeat BMP in AM Problems reviewed: Yes Code(s): N17.9 - ACUTE KIDNEY FAILURE, UNSPECIFIED (5) HTN (hypertension) Assessment/Plan: -Resume home meds -Low sodium diet Problems reviewed: Yes Code(s): I10 - ESSENTIAL (PRIMARY) HYPERTENSION Assessment/Plan See problem list
[2019-10-13] MEDS ORDERED: CYCLOBENZAPRINE HCL 10 MG TABLET (FP) PO ONE (15:55)
[2019-10-13] MEDS ORDERED: CYCLOBENZAPRINE HCL 10 MG TABLET (FP) ONE (17:43)
[2019-10-13] MEDS ORDERED: ALBUTEROL SO4 HFA INHALER IH ONE (17:43)
[2019-10-13] MEDS ORDERED: LIDOCAINE 5% TOPICAL PATCH ONE (17:43)
[2019-10-13] MEDS ORDERED: ALBUTEROL SO4 2.5/IPRATROPIUM 0.5 INH SOL 3 ML VIAL.NEB. NEB SCH (18:00)
[2019-10-13] MEDS: LIDOCAINE 5% TOPICAL PATCH TP SCH (18:10)
[2019-10-13] MEDS: ALBUTEROL SO4 HFA INHALER IH SCH ×2 (18:10→22:19)
[2019-10-13] MEDS: GABAPENTIN 100 MG CAPSULE PO SCH (22:13)
[2019-10-13] MEDS: oxyCODONE HCL 5 MG TABLET PO PRN (22:13)
[2019-10-13] MEDS: metoPROLOL SUCCINATE 25 MG TAB.SR.24H (FP) PO SCH (22:13)
[2019-10-13] MEDS: ATORVASTATIN CA 20 MG TABLET (FP) PO SCH (22:13)
[2019-10-13] MEDS: CHOLECALCIFEROL (VIT D3) 1,000 UNIT (25 MCG) TABLET PO SCH (22:14)
[2019-10-14] MEDS: LIDOCAINE PATCH REMOVAL MC SCH (04:56)
[2019-10-14] MEDS: GABAPENTIN 100 MG CAPSULE PO SCH ×3 (05:34→21:03)
[2019-10-14] MEDS: oxyCODONE HCL 5 MG TABLET PO PRN (05:34)
[2019-10-14] MEDS: ALBUTEROL SO4 HFA INHALER IH SCH ×3 (09:04→15:44)
--- NOTE | 2019-10-14 09:29 | PN ---
Progress Note, Physician Chief Complaint: Mechanical Fall UTI History of Present Illness: NAD unable to turn due to pain During exam severe pain Right mid abd CT chest: atelectasis/fibrotic changes, nonspecific subtle bilateral patchy groundglass opacities, no pleural effusion or pneumothorax, CT a/p: The liver, gallbladder, pancreas, adrenal glands, and spleen are grossly unremarkable. Bilateral renal cortical scarring. Bilateral renal calcifications, likely vascular. No ureteral calculi or hydronephrosis. No AAA. No evidence for diverticulitis, small bowel obstruction, free fluid, or free air. A floppy cecum located in the left lower quadrant. Urinary bladder is intact. No acute fracture or dislocation C spine: Cervical spine demonstrate stable alignment. Surgical changes and degenerative changes again noted. No acute cervical spine fracture or dislocation. Right maxillary chronic sinus disease. CT head: There is cerebral atrophy. Chronic microvascular ischemic changes are noted. Chronic lacunar infarctions. No acute intracranial hemorrhage or acute infarction. No acute fracture CT lumbar spine: Lumbar spine demonstrates normal alignment. Degenerative changes noted. Moderate chronic appearing compression fracture of L2. No acute lumbar spine fracture or dislocation. Pain is improved mild pain on palpation - Current Medication List Current Medications: Active Medications Acetaminophen (Tylenol -) 1,000 mg PO Q6H PRN PRN Reason: FEVER OR PAIN 1-3 Albuterol Sulfate (Ventolin Hfa Inhaler -) 1 puff IH RQID [facility] Last Admin: 10/14/19 09:04 Dose: 1 puff Documented by: Albuterol/Ipratropium (Duoneb -) 1 amp NEB QIDR [facility] Amlodipine Besylate (Norvasc -) 5 mg PO DAILY [facility] Last Admin: 10/13/19 10:00 Dose: 5 mg Documented by: Aspirin (Asa -) 81 mg PO DAILY [facility] Last Admin: 10/13/19 10:00 Dose: 81 mg Documented by: Atorvastatin Calcium (Lipitor -) 20 mg PO [facility] Last Admin: 10/13/19 22:13 Dose: 20 mg Documented by: Cholecalciferol (Vitamin D3 -) 1,000 unit PO [facility] Last Admin: 10/13/19 22:14 Dose: 1,000 unit Documented by: Cyclobenzaprine HCl (Flexeril -) 10 mg PO TID PRN PRN Reason: MUSCLE SPASMS Enoxaparin Sodium (Lovenox -) 40 mg SQ DAILY [facility] Last Admin: 10/13/19 10:00 Dose: 40 mg Documented by: Gabapentin (Neurontin -) 100 mg PO TID [facility] Last Admin: 10/14/19 05:34 Dose: 100 mg Documented by: Ceftriaxone Sodium (Ceftriaxone 2 Gm-D5w Bag) 2 gm in 50 mls @ 100 mls/hr IVPB DAILY [facility]; Protocol Last Admin: 10/13/19 10:00 Dose: 100 mls/hr Documented by: Lidocaine (Lidoderm Patch -) 1 patch TP DAILY@1600 [facility] Last Admin: 10/13/19 18:10 Dose: 1 patch Documented by: Losartan Potassium (Cozaar -) 50 mg PO DAILY [facility] Last Admin: 10/13/19 10:00 Dose: 50 mg Documented by: Metoprolol Succinate (Toprol Xl -) 12.5 mg PO HS [facility] Last Admin: 10/13/19 22:13 Dose: 12.5 mg Documented by: Miscellaneous (Lidoderm Patch Removal) 1 each MC DAILY@0400 [facility] Last Admin: 10/14/19 04:56 Dose: Not Given Documented by: Oxycodone HCl (Roxicodone -) 5 mg PO Q6H PRN PRN Reason: PAIN LEVEL 7 - 10 Last Admin: 10/14/19 05:34 Dose: 5 mg Documented by: Tramadol HCl (Ultram -) 50 mg PO Q6H PRN PRN Reason: PAIN LEVEL 4 - 6 - Objective Vital Signs: Vital Signs Temperature 98.3 F 10/14/19 05:52 Pulse Rate 66 10/14/19 05:52 Respiratory Rate 20 10/14/19 05:52 Blood Pressure 153/66 10/14/19 05:52 O2 Sat by Pulse Oximetry (%) 97 10/14/19 05:52 Constitutional: Yes: Well Nourished, No Distress, Calm Cardiovascular: Yes: Regular Rate and Rhythm Respiratory: Yes: Regular, CTA Bilaterally Gastrointestinal: Yes: Normal Bowel Sounds, Soft Genitourinary: Yes: Incontinence Musculoskeletal: Yes: Back Pain Extremities: Yes: WNL Edema: No Peripheral Pulses WNL: Yes Neurological: Yes: Alert, Oriented Psychiatric: Yes: Alert, Oriented Problem List - Problems (1) UTI (urinary tract infection) Assessment/Plan: -UA + nitrites -UC pending -Started on IV rocephin- continue -ID consult -Afebrile Problems reviewed: Yes Code(s): N39.0 - URINARY TRACT INFECTION, SITE NOT SPECIFIED (2) Fall Assessment/Plan: -CT chest: atelectasis/fibrotic changes, nonspecific subtle bilateral patchy groundglass opacities, no pleural effusion or pneumothorax, -CT a/p: The liver, gallbladder, pancreas, adrenal glands, and spleen are grossly unremarkable. Bilateral renal cortical scarring. Bilateral renal calcifications, likely vascular. No ureteral calculi or hydronephrosis. No AAA. No evidence for diverticulitis, small bowel obstruction, free fluid, or free air. A floppy cecum located in the left lower quadrant. Urinary bladder is intact. No acute fracture or dislocation -C spine: Cervical spine demonstrate stable alignment. Surgical changes and degenerative changes again noted. No acute cervical spine fracture or dislocation. Right maxillary chronic sinus disease. -CT head: There is cerebral atrophy. Chronic microvascular ischemic changes are noted. Chronic lacunar infarctions. No acute intracranial hemorrhage or acute infarction. No acute fracture -CT lumbar spine: Lumbar spine demonstrates normal alignment. Degenerative changes noted. Moderate chronic appearing compression fracture of L2. No acute lumbar spine fracture or dislocation. -Fall precautions -PT -Physiatry consult Problems reviewed: Yes Code(s): W19.XXXA - UNSPECIFIED FALL, INITIAL ENCOUNTER (3) Intractable low back pain Assessment/Plan: -Pain management consult -Acetaminophen 1 g Q6h PRN for pain 1-3 -Tramadol 50 mg po Q6H PRN for pain 4-6 -Oxycodone 5 mg po Q6H PRN for pain 7-10 -Lidoderm patch -Cyclobenzaprine 10 mg once and then TID PRN Problems reviewed: Yes Code(s): M54.5 - LOW BACK PAIN (4) KENNA (acute kidney injury) Assessment/Plan: -Likely 2/2 to UTI or mild dehydration -Received IVF in ER -D/C IVF, encouraged pO fluids -repeat BMP in AM Problems reviewed: Yes Code(s): N17.9 - ACUTE KIDNEY FAILURE, UNSPECIFIED (5) HTN (hypertension) Assessment/Plan: -Resume home meds -Low sodium diet Problems reviewed: Yes Code(s): I10 - ESSENTIAL (PRIMARY) HYPERTENSION Assessment/Plan See problem list Physical therapy for SNF eval
[2019-10-14 09:36] LABS: BASO % 0.6 % (0-2.0); EOS % 6.4 % (0-4.5); HEMATOCRIT 33.7 % (32.4-45.2); HEMOGLOBIN 11.1 GM/dL (10.7-15.3); LYMPH % 22.7 % (8-40); MCH 30.9 pg (25.7-33.7); MCHC 32.9 g/dl (32.0-36.0); MEAN CELL VOLUME 93.7 fl (80-96); MEAN PLT VOLUME 7.5 fl (7.5-11.1); MONO % 11.1 % (3.8-10.2); NEUT % 59.2 % (42.8-82.8); PLATELET COUNT 161 K/MM3 (134-434); RDW 13.8 % (11.6-15.6); WHITE BLOOD COUNT 4.9 K/mm3 (4.0-10.0)
[2019-10-14 10:10] LABS: ALBUMIN 2.7 g/dl (3.4-5.0); BLOOD UREA NITROGEN 14.4 mg/dL (7-18); CALCIUM 8.3 mg/dL (8.5-10.1); MAGNESIUM 2.3 mg/dL (1.8-2.4); POTASSIUM 3.7 mmol/L (3.5-5.1)
[2019-10-14 10:20] LABS: BILIRUBIN,TOTAL 0.8 mg/dL (0.2-1); TOT PROT 6.1 g/dl (6.4-8.2)
[2019-10-14] MEDS: ASPIRIN 81 MG CHEWABLE TABLETS PO SCH (10:42)
[2019-10-14] MEDS: amLODIPine BESYLATE 5 MG TABLET (FP) PO SCH (10:43)
[2019-10-14] MEDS: LOSARTAN POTASSIUM 50 MG TABLET (FP) PO SCH (10:43)
[2019-10-14] MEDS: CEFTRIAXONE 2 GM-D5W BAG 2 GM/50 ML BAG IVPB SCH (10:45)
[2019-10-14] MEDS: ENOXAPARIN NA (PORCINE) 40 MG/0.4 ML DISP.SYRIN SQ SCH (10:45)
--- NOTE | 2019-10-14 11:59 | PN ---
Progress Note (short form) - Note Progress Note: ID CONSULT DICTATED S/P MECHANICAL FALL UTI AZOTEMIA AWAIT C/S CONTINUE CEFTRIAXONE
--- NOTE | 2019-10-14 12:32 | CONS ---
INFECTIOUS DISEASE CONSULTATION DATE OF CONSULTATION: DATE OF DICTATION: 10/14/2019 HISTORY: The patient is an 89-year-old female who is evaluated for urinary tract infection. She was admitted to the hospital on October 12, 2019, after a fall which occurred 2 days prior to admission. The patient had a mechanical fall sustaining trauma to her right flank and lower back. She denied any head trauma or loss of consciousness. She presented to the emergency room where imaging studies were performed, were negative for acute fractures. She was noted to have an abnormal urine analysis. A urine culture was obtained and she was empirically treated with ceftriaxone. The patient does report recent dysuria, however, reports improvement on antibiotic therapy. She denies any hematuria. She denies any recent febrile illness. CAT scan of the abdomen and pelvis showed no acute pathology in the abdomen or pelvis. CAT scan of the chest showed some increased markings bilaterally, possibly suggestive of ground-glass infiltrates. She denies any COVID-19 exposure. PAST MEDICAL HISTORY: Positive for breast cancer, hypertension, hyperlipidemia, TIA, peripheral neuropathy. PAST SURGICAL HISTORY: Status post left mastectomy. ALLERGIES: No known allergies. MEDICATIONS: Include ceftriaxone, albuterol, Flexeril, Lovenox and Norvasc, Lipitor, Cozaar, Toprol, Tylenol, aspirin, Neurontin, oxycodone, tramadol. SOCIAL HISTORY: She resides at home with a grandchild. Denies any ill contacts. She is a nonsmoker, nondrinker. SYSTEMS REVIEW: Neurologic: No loss of consciousness, seizure activity or focal weakness. Cardiac: Negative chest pain or palpitations. Respiratory: Negative cough or sputum production. Gastrointestinal: Negative vomiting or diarrhea. Genitourinary: As per HPI. LABORATORY DATA: White count on admission 10.2, presently 4.9; hematocrit 33.7, platelets 161. Creatinine 1.0, liver enzymes normal. Urine analysis 572 white cells. Urine culture pending. COVID-19 PCR pending. PHYSICAL EXAMINATION: General: She is awake and alert. She is in no acute distress. Vital Signs: Temperature 98.3, blood pressure 155/71, pulse 72 regular, respirations . HEENT: Sclerae are anicteric. Heart: Sounds S1, S2. Lungs: Clear bilaterally. Abdomen: Obese. There is mild suprapubic tenderness to palpation. Extremities: Positive pedal edema. IMPRESSION: 1. Status post mechanical fall. 2. Urinary tract infection. 3. Azotemia. Await urine culture results. Continue empiric ceftriaxone pending culture. Will follow. Thank you for the kind referral. ALANNAH MURPHY M.D. KASSI/[id number]
--- NOTE | 2019-10-14 13:39 | CONSULT ---
Consult Consult Specialty:: Physiatry consult Dr Hand for Dr Griffiths - History of Present Illness Chief Complaint: LBP into abdomen History of Present Illness: This is an 89 year old woman with a medical history of TIA, HTN, HLD, peripheral neuropathy, breast cancer s/p L mastectomy, who presented to [facility] ED 10/12/2019 with R flank and LBP following a fall [address] [employer] head showed no acute pathology and no interval change compared to 07/16/18. CT neck showed C4-C7 ACDF s/p C5/ C6 corpectomies with C3-4 through C6-C7 facet hypertrophy, without acute pathology. CT lumbar spine showed moderate chronic L2 compression fx with L1-L2 DDD and central stenosis. CT CAP showed mild atelectasis, s/p L mastectomy, without acute pathology. Ceftriaxone was started for +UA pending UCx results; ID was consulted as well. Pain Management consult is pending as well. She reports pain is non radiating, from the back into the R abdomen, and 7/10 down from 9/10. She has not been seen by PT. Physiatry is being consulted for further recommendations. 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 Cardio/Vascular: Yes: HTN, Hyperlipdemia Musculoskeletal: Yes: Osteoarthritis - Past Surgical History Past Surgical History: Yes: Mastectomy (L- Breast) - Alcohol/Substance Use Hx Alcohol Use: No History of Substance Use: reports: None - Smoking History Smoking history: Never smoked Have you smoked in the past 12 months: No - Social History Usual Living Arrangement: Other (in house with 15 steps to enter from front and 1 from rear, ambulated with walker) ADL: Family Assistance History of Recent Travel: No Home Medications - Allergies Allergies/Adverse Reactions: Allergies Allergy/AdvReac Type Severity Reaction Status Date / Time No Known Drug Allergies Allergy Verified 10/12/19 19:40 - Home Medications Home Medications: Ambulatory Orders Aspirin [Baby Aspirin] 81 mg PO DAILY 02/27/11 Atorvastatin Ca [Lipitor] 20 mg PO HS 07/26/15 Cholecalciferol (Vitamin D3) [Vitamin D3 -] 1,000 unit PO HS 07/26/15 Metoprolol Succinate [Toprol XL -] 12.5 mg PO HS 07/26/15 Albuterol 2.5/Ipratropium 0.5 [Duoneb -] 1 amp NEB QIDR amp 02/07/17 Amlodipine Besylate [Norvasc -] 5 mg PO DAILY #30 tablet 07/16/18 Losartan Potassium [Cozaar -] 50 mg PO DAILY #30 tablet 07/16/18 Review of Systems Findings/Remarks: Denies fevers, chills, changes in vision/ hearing/ mood, CP, SOB, nausea, vomiting, constipation, diarrhea, dysuria, changes in paresthesias. She notes LBP into R abdomen, improving. - Review of Systems Musculoskeletal: reports: Other (calm elderly F sitting in bed NAD; B shoulder flexion to 100 degrees, 4+/5 BUE/ BLE; no BLE pitting edema, no B calf tenderness) Physical Exam Vital Signs: Vital Signs Temperature 98.3 F 10/14/19 09:30 Pulse Rate 72 10/14/19 09:30 Respiratory Rate 18 10/14/19 09:30 Blood Pressure 155/71 10/14/19 09:30 O2 Sat by Pulse Oximetry (%) 97 10/14/19 09:30 Labs: CBC, BMP 10/14/19 07:45 10/14/19 07:45 Imaging - Results Cat Scan: Report Reviewed (as per HPI) Assessment/Plan Impression: 1) Deficits mobility/ ADLs 2) Deconditioning 3) Gait abnormality 4) S/p fall 10/10/2019 when walker got stuck 5) UTI 6) 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 7) hx C4-C7 ACDF s/p C5/ C6 corpectomies with C3-4 through C6-C7 facet hypertrophy 8) hx TIA 9) hx HTN, HLD 10) hx peripheral neuropathy 11) hx breast cancer s/p L mastectomy 12) Overweight 13) No documented flu shot/ pneumovax Recommendations: 1) PT for stretching strengthening ROM and functional mobility 2) Falls, safety precautions 3) Cardiac precautions 4) Lumbar corset to be worn while OOB- please contact central supply for this 5) Ice to low back prn 6) Pending Pain Management consult 7) DVT ppx: on Lovenox 8) Denies constipation on current bowel regimen 9) Nutrition consult for overweight 10) Continue plan per primary team 11) Discharge planning: depending on how well- controlled her pain is, she may be able to return to home vs [facility] Thank you for this referral.
[2019-10-14] MEDS: LIDOCAINE 5% TOPICAL PATCH TP SCH (15:44)
[2019-10-14] MEDS: traMADol HCL 50 MG TABLET PO PRN (16:25)
--- NOTE | 2019-10-14 18:42 | CONSULT ---
Consult Consult Specialty:: Interventional Spine & Pain Management Reason for Consultation:: Pain Management - History of Present Illness Chief Complaint: Low back Pain and Spasm History of Present Illness: Pt is an 89 year old woman with pmhx of TIA, HTN, HLD, peripheral neuropathy, breast cancer s/p L mastectomy. Pt sustained a fall on 10/11 while walking with her walker in her garden CT head showed no acute pathology and no interval change compared to 07/16/18. CT neck showed C4-C7 ACDF s/p C5/ C6 corpectomies with C3-4 through C6-C7 facet hypertrophy, without acute pathology. CT lumbar spine showed moderate chronic L2 compression fx with L1-L2 DDD and central stenosis. CT CAP showed mild atelectasis., s/p L mastectomy, without acute pathology. Pt was somnolent throughout the interview. She appeared to be sedated and was falling asleep at times. She did not endorse any pain at the time of interview. Stating her pain was 0/10. 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 Cardio/Vascular: Yes: HTN, Hyperlipdemia Musculoskeletal: Yes: Osteoarthritis - Past Surgical History Past Surgical History: Yes: Mastectomy (L- Breast) - Alcohol/Substance Use Hx Alcohol Use: No History of Substance Use: reports: None - Smoking History Smoking history: Never smoked Have you smoked in the past 12 months: No - Social History Usual Living Arrangement: Other (in house with 15 steps to enter from front and 1 from rear, ambulated with walker) ADL: Family Assistance History of Recent Travel: No Home Medications - Allergies Allergies/Adverse Reactions: Allergies Allergy/AdvReac Type Severity Reaction Status Date / Time No Known Drug Allergies Allergy Verified 10/12/19 19:40 - Home Medications Home Medications: Ambulatory Orders Aspirin [Baby Aspirin] 81 mg PO DAILY 02/27/11 Atorvastatin Ca [Lipitor] 20 mg PO HS 07/26/15 Cholecalciferol (Vitamin D3) [Vitamin D3 -] 1,000 unit PO HS 07/26/15 Metoprolol Succinate [Toprol XL -] 12.5 mg PO HS 07/26/15 Albuterol 2.5/Ipratropium 0.5 [Duoneb -] 1 amp NEB QIDR amp 02/07/17 Amlodipine Besylate [Norvasc -] 5 mg PO DAILY #30 tablet 07/16/18 Losartan Potassium [Cozaar -] 50 mg PO DAILY #30 tablet 07/16/18 Review of Systems - Review of Systems Constitutional: reports: No Symptoms Eyes: reports: No Symptoms HENT: reports: No Symptoms Neck: reports: No Symptoms Cardiovascular: reports: No Symptoms Respiratory: reports: No Symptoms Gastrointestinal: reports: No Symptoms Genitourinary: reports: No Symptoms Breasts: reports: No Symptoms Reported Musculoskeletal: reports: Back Pain Integumentary: reports: No Symptoms Neurological: reports: No Symptoms Endocrine: reports: No Symptoms Hematology/Lymphatic: reports: No Symptoms Psychiatric: reports: No Symptoms Physical Exam Vital Signs: Vital Signs Temperature 98.4 F 10/14/19 17:31 Pulse Rate 70 10/14/19 17:31 Respiratory Rate 20 10/14/19 17:31 Blood Pressure 154/71 10/14/19 17:31 O2 Sat by Pulse Oximetry (%) 95 10/14/19 17:31 Constitutional: Yes: Well Nourished, No Distress, Calm, Other (Somnolent) Eyes: Yes: Conjunctiva Clear, EOM Intact HENT: Yes: Atraumatic, Normocephalic Neck: Yes: Trachea Midline Cardiovascular: Yes: Regular Rate and Rhythm Respiratory: Yes: Regular Gastrointestinal: Yes: Soft Musculoskeletal: Yes: Back Pain (TTP over the paraspinal muscles) Extremities: Yes: Other (no edema) Edema: No Integumentary: Yes: WNL (DTRS Symetric Sensation intact) ...Motor Strength: WNL (Able to move both extremities) Labs: CBC, BMP 10/14/19 07:45 10/14/19 07:45 Imaging - Results Cat Scan: Report Reviewed, Image Reviewed Assessment/Plan The patients pain is likley secondary to soft tissue injury s/p fall. Pt with baseline spondyllosis. Pt was found to be drowsy and falling asleep during the interview. Possibly secondary to her pain medication regiment. Pain Management Recommendations 1. Change Tylenol to standing 1000 mg TID. 2. Consider starting a standing NSAID per primary team ie naproxen or motrin. 3. May continue gabapentin 100 mg at night. May uptitrate to TID as tolerated. Monitor for sedation. 4. Change cyclobenzaprine to Tizanidine 2 mg BID prn Muscle spasm. Tizanide has less sedating effect. Monitor for sedation. 5. D/c Oxycodone. May continue tramadol 50 MG PRN for severe pain. 6. Continue Topical Lidocaine patches 7. Goal is to discharge without opiate medication. Recommend a PT consult for safe discharge. Pt may follow up in my office as an outpatient and may benefit from Lumbar Medial Branch Blocks or Triggerpoint injections and physical therapy as an outpatient. Please call my office at [phone] for an appointment. [address] [facility] 1st floor. Thank you for your consult. Ger Cortez DO [facility] Interventional Spine and Pain Management
[2019-10-14] MEDS: CHOLECALCIFEROL (VIT D3) 1,000 UNIT (25 MCG) TABLET PO SCH (21:02)
[2019-10-14] MEDS: ATORVASTATIN CA 20 MG TABLET (FP) PO SCH (21:03)
[2019-10-14] MEDS: metoPROLOL SUCCINATE 25 MG TAB.SR.24H (FP) PO SCH (21:03)
[2019-10-15] MEDS: traMADol HCL 50 MG TABLET PO PRN ×2 (01:09→21:42)
[2019-10-15] MEDS: LIDOCAINE PATCH REMOVAL MC SCH (04:26)
[2019-10-15] MEDS: GABAPENTIN 100 MG CAPSULE PO SCH ×3 (05:49→21:37)
[2019-10-15] MEDS: ALBUTEROL SO4 2.5/IPRATROPIUM 0.5 INH SOL 3 ML VIAL.NEB. NEB SCH ×4 (07:34→20:46)
[2019-10-15] MEDS ORDERED: CEFTRIAXONE 2 GM in DEXTROSE 5%-WATER 100 ML IVPB SCH (08:35)
--- NOTE | 2019-10-15 09:06 | PN ---
Progress Note, Physician Chief Complaint: Mechanical Fall UTI History of Present Illness: NAD unable to turn due to pain During exam severe pain Right mid abd CT chest: atelectasis/fibrotic changes, nonspecific subtle bilateral patchy groundglass opacities, no pleural effusion or pneumothorax, CT a/p: The liver, gallbladder, pancreas, adrenal glands, and spleen are grossly unremarkable. Bilateral renal cortical scarring. Bilateral renal calcifications, likely vascular. No ureteral calculi or hydronephrosis. No AAA. No evidence for diverticulitis, small bowel obstruction, free fluid, or free air. A floppy cecum located in the left lower quadrant. Urinary bladder is intact. No acute fracture or dislocation C spine: Cervical spine demonstrate stable alignment. Surgical changes and degenerative changes again noted. No acute cervical spine fracture or dislocation. Right maxillary chronic sinus disease. CT head: There is cerebral atrophy. Chronic microvascular ischemic changes are noted. Chronic lacunar infarctions. No acute intracranial hemorrhage or acute infarction. No acute fracture CT lumbar spine: Lumbar spine demonstrates normal alignment. Degenerative changes noted. Moderate chronic appearing compression fracture of L2. No acute lumbar spine fracture or dislocation. Pain is improved mild pain on palpation - Current Medication List Current Medications: Active Medications Albuterol/Ipratropium (Duoneb -) 1 amp NEB RQID [facility] Last Admin: 10/15/19 07:34 Dose: 1 amp Documented by: Amlodipine Besylate (Norvasc -) 5 mg PO DAILY [facility] Last Admin: 10/14/19 10:43 Dose: 5 mg Documented by: Aspirin (Asa -) 81 mg PO DAILY [facility] Last Admin: 10/14/19 10:42 Dose: 81 mg Documented by: Atorvastatin Calcium (Lipitor -) 20 mg PO [facility] Last Admin: 10/14/19 21:03 Dose: 20 mg Documented by: Cholecalciferol (Vitamin D3 -) 1,000 unit PO [facility] Last Admin: 10/14/19 21:02 Dose: 1,000 unit Documented by: Cyclobenzaprine HCl (Flexeril -) 10 mg PO TID PRN PRN Reason: MUSCLE SPASMS Enoxaparin Sodium (Lovenox -) 40 mg SQ DAILY [facility] Last Admin: 10/14/19 10:45 Dose: 40 mg Documented by: Gabapentin (Neurontin -) 100 mg PO TID [facility] Last Admin: 10/15/19 05:49 Dose: 100 mg Documented by: Ceftriaxone Sodium 2 gm/ (Dextrose) 100 mls @ 200 mls/hr IVPB DAILY [facility]; Protocol Lidocaine (Lidoderm Patch -) 1 patch TP DAILY@1600 [facility] Last Admin: 10/14/19 15:44 Dose: 1 patch Documented by: Losartan Potassium (Cozaar -) 50 mg PO DAILY [facility] Last Admin: 10/14/19 10:43 Dose: 50 mg Documented by: Metoprolol Succinate (Toprol Xl -) 12.5 mg PO [facility] Last Admin: 10/14/19 21:03 Dose: 12.5 mg Documented by: Miscellaneous (Lidoderm Patch Removal) 1 each MC DAILY@0400 [facility] Last Admin: 10/15/19 04:26 Dose: Not Given Documented by: - Objective Vital Signs: Vital Signs Temperature 98.4 F 10/15/19 05:00 Pulse Rate 65 10/15/19 05:00 Respiratory Rate 20 10/15/19 05:00 Blood Pressure 149/74 10/15/19 05:00 O2 Sat by Pulse Oximetry (%) 94 L 10/15/19 05:00 Constitutional: Yes: Well Nourished, No Distress, Calm Cardiovascular: Yes: Regular Rate and Rhythm Respiratory: Yes: Regular, CTA Bilaterally Gastrointestinal: Yes: Normal Bowel Sounds, Soft Genitourinary: Yes: Incontinence Musculoskeletal: Yes: Back Pain, Muscle Weakness Extremities: Yes: WNL Edema: No Peripheral Pulses WNL: Yes Neurological: Yes: Alert, Oriented Psychiatric: Yes: Alert, Oriented Labs: CBC, BMP 10/14/19 07:45 10/14/19 07:45 Problem List - Problems (1) UTI (urinary tract infection) Assessment/Plan: -UA + nitrites -UC pending -IV abx -ID consult -Afebrile Problems reviewed: Yes Code(s): N39.0 - URINARY TRACT INFECTION, SITE NOT SPECIFIED (2) Fall Assessment/Plan: -CT chest: atelectasis/fibrotic changes, nonspecific subtle bilateral patchy groundglass opacities, no pleural effusion or pneumothorax, -CT a/p: The liver, gallbladder, pancreas, adrenal glands, and spleen are grossly unremarkable. Bilateral renal cortical scarring. Bilateral renal calcifications, likely vascular. No ureteral calculi or hydronephrosis. No AAA. No evidence for diverticulitis, small bowel obstruction, free fluid, or free air. A floppy cecum located in the left lower quadrant. Urinary bladder is intact. No acute fracture or dislocation -C spine: Cervical spine demonstrate stable alignment. Surgical changes and degenerative changes again noted. No acute cervical spine fracture or dislocation. Right maxillary chronic sinus disease. -CT head: There is cerebral atrophy. Chronic microvascular ischemic changes are noted. Chronic lacunar infarctions. No acute intracranial hemorrhage or acute infarction. No acute fracture -CT lumbar spine: Lumbar spine demonstrates normal alignment. Degenerative changes noted. Moderate chronic appearing compression fracture of L2. No acute lumbar spine fracture or dislocation. -Fall precautions -PT -Physiatry consult Problems reviewed: Yes Code(s): W19.XXXA - UNSPECIFIED FALL, INITIAL ENCOUNTER (3) Intractable low back pain Assessment/Plan: -Pain management consult appreciated -Acetaminophen 1 g Q6h PRN for pain 1-5 -Tramadol 50 mg po Q6H PRN for pain 6-10 -Lidoderm patch -Cyclobenzaprine 10 mg TID PRN Problems reviewed: Yes Code(s): M54.5 - LOW BACK PAIN (4) KENNA (acute kidney injury) Assessment/Plan: -resolved -Cr at baseline -Likely 2/2 to UTI or mild dehydration -Received IVF in ER -D/C IVF, encouraged pO fluids Problems reviewed: Yes Code(s): N17.9 - ACUTE KIDNEY FAILURE, UNSPECIFIED (5) HTN (hypertension) Assessment/Plan: -Resume home meds -Low sodium diet Problems reviewed: Yes Code(s): I10 - ESSENTIAL (PRIMARY) HYPERTENSION Assessment/Plan See problem list Spoke to daughter Radha, who wants me to direct decision making for SNF to the pt. Pt lives in multi-family home, Pt's grand-daughter lives in the same apar tment as the pt. It is unclear if she is there at all times to help pt out with ADL's.
[2019-10-15] MEDS ORDERED: ACETAMINOPHEN 500 MG TABLET (FP) PO PRN (09:14)
[2019-10-15] MEDS: ASPIRIN 81 MG CHEWABLE TABLETS PO SCH (09:39)
[2019-10-15] MEDS: LOSARTAN POTASSIUM 50 MG TABLET (FP) PO SCH (09:39)
[2019-10-15] MEDS: ENOXAPARIN NA (PORCINE) 40 MG/0.4 ML DISP.SYRIN SQ SCH (09:39)
[2019-10-15] MEDS: amLODIPine BESYLATE 5 MG TABLET (FP) PO SCH (09:40)
[2019-10-15] MEDS: CYCLOBENZAPRINE HCL 10 MG TABLET (FP) PO PRN (09:40)
--- NOTE | 2019-10-15 14:01 | PN ---
Progress Note, Physician History of Present Illness: C/O R FLANK/LOWER QUADRANT SPASM WITH MOVEMENT NO C/O DYSURIA NO FEVER/ CHILLS URINE C/S PRESUMED PSEUDOMONAS SP - Current Medication List Current Medications: Active Medications Acetaminophen (Tylenol -) 1,000 mg PO Q6H PRN PRN Reason: PAIN LEVEL 1-5 Last Admin: 10/15/19 09:39 Dose: 1,000 mg Documented by: Albuterol/Ipratropium (Duoneb -) 1 amp NEB RQID [facility] Last Admin: 10/15/19 11:05 Dose: 1 amp Documented by: Amlodipine Besylate (Norvasc -) 5 mg PO DAILY [facility] Last Admin: 10/15/19 09:40 Dose: 5 mg Documented by: Aspirin (Asa -) 81 mg PO DAILY [facility] Last Admin: 10/15/19 09:39 Dose: 81 mg Documented by: Atorvastatin Calcium (Lipitor -) 20 mg PO [facility] Last Admin: 10/14/19 21:03 Dose: 20 mg Documented by: Cholecalciferol (Vitamin D3 -) 1,000 unit PO [facility] Last Admin: 10/14/19 21:02 Dose: 1,000 unit Documented by: Cyclobenzaprine HCl (Flexeril -) 10 mg PO TID PRN PRN Reason: MUSCLE SPASMS Last Admin: 10/15/19 09:40 Dose: 10 mg Documented by: Enoxaparin Sodium (Lovenox -) 40 mg SQ DAILY [facility] Last Admin: 10/15/19 09:39 Dose: 40 mg Documented by: Gabapentin (Neurontin -) 100 mg PO TID [facility] Last Admin: 10/15/19 13:34 Dose: 100 mg Documented by: Ceftriaxone Sodium 2 gm/ (Dextrose) 100 mls @ 200 mls/hr IVPB DAILY [facility]; Protocol Last Admin: 10/15/19 09:41 Dose: 200 mls/hr Documented by: Lidocaine (Lidoderm Patch -) 1 patch TP DAILY@1600 [facility] Last Admin: 10/14/19 15:44 Dose: 1 patch Documented by: Losartan Potassium (Cozaar -) 50 mg PO DAILY [facility] Last Admin: 10/15/19 09:39 Dose: 50 mg Documented by: Metoprolol Succinate (Toprol Xl -) 12.5 mg PO [facility] Last Admin: 10/14/19 21:03 Dose: 12.5 mg Documented by: Miscellaneous (Lidoderm Patch Removal) 1 each MC DAILY@0400 [facility] Last Admin: 10/15/19 04:26 Dose: Not Given Documented by: Tramadol HCl (Ultram -) 50 mg PO Q6H PRN PRN Reason: PAIN LEVEL 6-10 - Objective Vital Signs: Vital Signs Temperature 98.1 F 10/15/19 11:59 Pulse Rate 59 L 10/15/19 11:59 Respiratory Rate 19 10/15/19 11:59 Blood Pressure 121/57 L 10/15/19 11:59 O2 Sat by Pulse Oximetry (%) 94 L 10/15/19 11:59 Constitutional: Yes: No Distress Cardiovascular: Yes: Regular Rate and Rhythm, S1, S2 Respiratory: Yes: CTA Bilaterally Gastrointestinal: Yes: Normal Bowel Sounds. 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
[2019-10-15] MEDS ORDERED: PT OWN MED DRAWER 7, Y5N ONE (14:04)
[2019-10-15] MEDS ORDERED: PIPERACILLIN/TAZOBACTAM 2.25 GM VIAL IVPB ONE ×2 (14:25→17:43)
[2019-10-15] MEDS ORDERED: DEXTROSE 5%-WATER - 50 ML IVPB ONE ×2 (14:25→17:43)
[2019-10-15] MEDS: PIPERACILLIN/TAZOB 2.25 GM 2.25 GM in DEXTROSE 5%-WATER - 50 ML IVPB SCH ×2 (14:28→17:59)
[2019-10-15] MEDS: LIDOCAINE 5% TOPICAL PATCH TP SCH (16:54)
[2019-10-15] MEDS: metoPROLOL SUCCINATE 25 MG TAB.SR.24H (FP) PO SCH (21:37)
[2019-10-15] MEDS: ATORVASTATIN CA 20 MG TABLET (FP) PO SCH (21:37)
[2019-10-15] MEDS: CHOLECALCIFEROL (VIT D3) 1,000 UNIT (25 MCG) TABLET PO SCH (21:42)
[2019-10-16] MEDS ORDERED: PIPERACILLIN/TAZOBACTAM 2.25 GM VIAL IVPB ONE ×2 (02:09→09:46)
[2019-10-16] MEDS ORDERED: DEXTROSE 5%-WATER - 50 ML IVPB ONE ×2 (02:10→09:46)
[2019-10-16] MEDS: PIPERACILLIN/TAZOB 2.25 GM 2.25 GM in DEXTROSE 5%-WATER - 50 ML IVPB SCH ×2 (02:17→10:25)
[2019-10-16] MEDS: traMADol HCL 50 MG TABLET PO PRN ×2 (03:30→10:25)
[2019-10-16] MEDS: LIDOCAINE PATCH REMOVAL MC SCH (04:00)
[2019-10-16] MEDS: GABAPENTIN 100 MG CAPSULE PO SCH ×3 (05:31→21:48)
[2019-10-16] MEDS: ALBUTEROL SO4 2.5/IPRATROPIUM 0.5 INH SOL 3 ML VIAL.NEB. NEB SCH ×4 (07:40→19:32)
[2019-10-16] MEDS: ASPIRIN 81 MG CHEWABLE TABLETS PO SCH (10:25)
[2019-10-16] MEDS: ENOXAPARIN NA (PORCINE) 40 MG/0.4 ML DISP.SYRIN SQ SCH (10:25)
[2019-10-16] MEDS: amLODIPine BESYLATE 5 MG TABLET (FP) PO SCH (10:25)
[2019-10-16] MEDS: LOSARTAN POTASSIUM 50 MG TABLET (FP) PO SCH (10:27)
--- NOTE | 2019-10-16 11:19 | PN ---
Progress Note, Physician Chief Complaint: Mechanical Fall UTI History of Present Illness: NAD unable to turn due to pain During exam severe pain Right mid abd CT chest: atelectasis/fibrotic changes, nonspecific subtle bilateral patchy groundglass opacities, no pleural effusion or pneumothorax, CT a/p: The liver, gallbladder, pancreas, adrenal glands, and spleen are grossly unremarkable. Bilateral renal cortical scarring. Bilateral renal calcifications, likely vascular. No ureteral calculi or hydronephrosis. No AAA. No evidence for diverticulitis, small bowel obstruction, free fluid, or free air. A floppy cecum located in the left lower quadrant. Urinary bladder is intact. No acute fracture or dislocation C spine: Cervical spine demonstrate stable alignment. Surgical changes and degenerative changes again noted. No acute cervical spine fracture or dislocation. Right maxillary chronic sinus disease. CT head: There is cerebral atrophy. Chronic microvascular ischemic changes are noted. Chronic lacunar infarctions. No acute intracranial hemorrhage or acute infarction. No acute fracture CT lumbar spine: Lumbar spine demonstrates normal alignment. Degenerative changes noted. Moderate chronic appearing compression fracture of L2. No acute lumbar spine fracture or dislocation. Pain is improved mild pain on palpation - Current Medication List Current Medications: Active Medications Acetaminophen (Tylenol -) 1,000 mg PO Q6H PRN PRN Reason: PAIN LEVEL 1-5 Last Admin: 10/15/19 09:39 Dose: 1,000 mg Documented by: Albuterol/Ipratropium (Duoneb -) 1 amp NEB RQID [facility] Last Admin: 10/16/19 07:40 Dose: 1 amp Documented by: Amlodipine Besylate (Norvasc -) 5 mg PO DAILY [facility] Last Admin: 10/16/19 10:25 Dose: 5 mg Documented by: Aspirin (Asa -) 81 mg PO DAILY [facility] Last Admin: 10/16/19 10:25 Dose: 81 mg Documented by: Atorvastatin Calcium (Lipitor -) 20 mg PO [facility] Last Admin: 10/15/19 21:37 Dose: 20 mg Documented by: Cholecalciferol (Vitamin D3 -) 1,000 unit PO [facility] Last Admin: 10/15/19 21:42 Dose: 1,000 unit Documented by: Cyclobenzaprine HCl (Flexeril -) 10 mg PO TID PRN PRN Reason: MUSCLE SPASMS Last Admin: 10/15/19 09:40 Dose: 10 mg Documented by: Enoxaparin Sodium (Lovenox -) 40 mg SQ DAILY [facility] Last Admin: 10/16/19 10:25 Dose: 40 mg Documented by: Gabapentin (Neurontin -) 100 mg PO TID [facility] Last Admin: 10/16/19 05:31 Dose: 100 mg Documented by: Piperacillin Sod/Tazobactam (Sod 2.25 gm/ Dextrose) 50 mls @ 100 mls/hr IVPB Q8H-IV [facility]; Protocol Last Admin: 10/16/19 10:25 Dose: 100 mls/hr Documented by: Lidocaine (Lidoderm Patch -) 1 patch TP DAILY@1600 [facility] Last Admin: 10/15/19 16:54 Dose: 1 patch Documented by: Losartan Potassium (Cozaar -) 50 mg PO DAILY [facility] Last Admin: 10/16/19 10:27 Dose: 50 mg Documented by: Metoprolol Succinate (Toprol Xl -) 12.5 mg PO HS [facility] Last Admin: 10/15/19 21:37 Dose: 12.5 mg Documented by: Miscellaneous (Lidoderm Patch Removal) 1 each MC DAILY@0400 [facility] Last Admin: 10/16/19 04:00 Dose: 1 each Documented by: Tramadol HCl (Ultram -) 50 mg PO Q6H PRN PRN Reason: PAIN LEVEL 6-10 Last Admin: 10/16/19 10:25 Dose: 50 mg Documented by: - Objective Vital Signs: Vital Signs Temperature 97.7 F 10/16/19 10:00 Pulse Rate 74 10/16/19 10:00 Respiratory Rate 18 10/16/19 10:00 Blood Pressure 144/72 10/16/19 10:00 O2 Sat by Pulse Oximetry (%) 98 10/16/19 10:00 Constitutional: Yes: Well Nourished, No Distress, Calm Cardiovascular: Yes: Regular Rate and Rhythm Respiratory: Yes: Regular, CTA Bilaterally Gastrointestinal: Yes: Normal Bowel Sounds, Soft Genitourinary: Yes: Incontinence Musculoskeletal: Yes: Muscle Weakness Extremities: Yes: WNL Edema: No Peripheral Pulses WNL: Yes Neurological: Yes: Alert, Oriented Psychiatric: Yes: Alert, Oriented Labs: CBC, BMP 10/14/19 07:45 10/14/19 07:45 Problem List - Problems (1) UTI (urinary tract infection) Assessment/Plan: -UA + nitrites -UC : Microbiology 10/13/19 22:00 Urine Culture - Final Urine - Urine Clean Catch Pseudomonas Aeruginosa Group D Strep Or Entero Coccus -Zosyn transitioned to levaquin 250 mg po for another 7 days -ID consult -Afebrile Problems reviewed: Yes Code(s): N39.0 - URINARY TRACT INFECTION, SITE NOT SPECIFIED (2) Fall Assessment/Plan: -CT chest: atelectasis/fibrotic changes, nonspecific subtle bilateral patchy groundglass opacities, no pleural effusion or pneumothorax, -CT a/p: The liver, gallbladder, pancreas, adrenal glands, and spleen are grossly unremarkable. Bilateral renal cortical scarring. Bilateral renal calcifications, likely vascular. No ureteral calculi or hydronephrosis. No AAA. No evidence for diverticulitis, small bowel obstruction, free fluid, or free air. A floppy cecum located in the left lower quadrant. Urinary bladder is intact. No acute fracture or dislocation -C spine: Cervical spine demonstrate stable alignment. Surgical changes and degenerative changes again noted. No acute cervical spine fracture or dislocation. Right maxillary chronic sinus disease. -CT head: There is cerebral atrophy. Chronic microvascular ischemic changes are noted. Chronic lacunar infarctions. No acute intracranial hemorrhage or acute infarction. No acute fracture -CT lumbar spine: Lumbar spine demonstrates normal alignment. Degenerative changes noted. Moderate chronic appearing compression fracture of L2. No acute lumbar spine fracture or dislocation. -Fall precautions -PT -Physiatry consult Problems reviewed: Yes Code(s): W19.XXXA - UNSPECIFIED FALL, INITIAL ENCOUNTER (3) Intractable low back pain Assessment/Plan: -Pain management consult appreciated -Acetaminophen 1 g Q6h PRN for pain 1-5 -Tramadol 50 mg po Q6H PRN for pain 6-10 -Lidoderm patch -Cyclobenzaprine 10 mg TID PRN Problems reviewed: Yes Code(s): M54.5 - LOW BACK PAIN (4) KENNA (acute kidney injury) Assessment/Plan: -resolved -Cr at baseline -Likely 2/2 to UTI or mild dehydration -Received IVF in ER -D/C IVF, encouraged pO fluids Problems reviewed: Yes Code(s): N17.9 - ACUTE KIDNEY FAILURE, UNSPECIFIED (5) HTN (hypertension) Assessment/Plan: -Resume home meds -Low sodium diet Problems reviewed: Yes Code(s): I10 - ESSENTIAL (PRIMARY) HYPERTENSION Assessment/Plan See problem list Spoke to daughter Radha, who wants me to direct decision making for SNF to the pt. Pt lives in multi-family home, Pt's grand-daughter lives in the same apartment as the pt. It is unclear if she is there at all times to help pt out with ADL's.
--- NOTE | 2019-10-16 11:27 | PN ---
Progress Note, Physician History of Present Illness: C/O R FLANK/LOWER QUADRANT SPASM WITH MOVEMENT NO C/O DYSURIA NO FEVER/ CHILLS AFEBRILE WBC WNL URINE C/S PSEUDOMONAS SP - Current Medication List Current Medications: Active Medications Acetaminophen (Tylenol -) 1,000 mg PO Q6H PRN PRN Reason: PAIN LEVEL 1-5 Last Admin: 10/15/19 09:39 Dose: 1,000 mg Documented by: Albuterol/Ipratropium (Duoneb -) 1 amp NEB RQID [facility] Last Admin: 10/16/19 07:40 Dose: 1 amp Documented by: Amlodipine Besylate (Norvasc -) 5 mg PO DAILY [facility] Last Admin: 10/16/19 10:25 Dose: 5 mg Documented by: Aspirin (Asa -) 81 mg PO DAILY [facility] Last Admin: 10/16/19 10:25 Dose: 81 mg Documented by: Atorvastatin Calcium (Lipitor -) 20 mg PO [facility] Last Admin: 10/15/19 21:37 Dose: 20 mg Documented by: Cholecalciferol (Vitamin D3 -) 1,000 unit PO [facility] Last Admin: 10/15/19 21:42 Dose: 1,000 unit Documented by: Cyclobenzaprine HCl (Flexeril -) 10 mg PO TID PRN PRN Reason: MUSCLE SPASMS Last Admin: 10/15/19 09:40 Dose: 10 mg Documented by: Enoxaparin Sodium (Lovenox -) 40 mg SQ DAILY [facility] Last Admin: 10/16/19 10:25 Dose: 40 mg Documented by: Gabapentin (Neurontin -) 100 mg PO TID [facility] Last Admin: 10/16/19 05:31 Dose: 100 mg Documented by: Piperacillin Sod/Tazobactam (Sod 2.25 gm/ Dextrose) 50 mls @ 100 mls/hr IVPB Q8H-IV [facility]; Protocol Last Admin: 10/16/19 10:25 Dose: 100 mls/hr Documented by: Lidocaine (Lidoderm Patch -) 1 patch TP DAILY@1600 [facility] Last Admin: 10/15/19 16:54 Dose: 1 patch Documented by: Losartan Potassium (Cozaar -) 50 mg PO DAILY [facility] Last Admin: 10/16/19 10:27 Dose: 50 mg Documented by: Metoprolol Succinate (Toprol Xl -) 12.5 mg PO [facility] Last Admin: 10/15/19 21:37 Dose: 12.5 mg Documented by: Miscellaneous (Lidoderm Patch Removal) 1 each MC DAILY@0400 [facility] Last Admin: 10/16/19 04:00 Dose: 1 each Documented by: Tramadol HCl (Ultram -) 50 mg PO Q6H PRN PRN Reason: PAIN LEVEL 6-10 Last Admin: 10/16/19 10:25 Dose: 50 mg Documented by: - Objective Vital Signs: Vital Signs Temperature 97.7 F 10/16/19 10:00 Pulse Rate 74 10/16/19 10:00 Respiratory Rate 18 10/16/19 10:00 Blood Pressure 144/72 10/16/19 10:00 O2 Sat by Pulse Oximetry (%) 98 10/16/19 10:00 Constitutional: Yes: No Distress Eyes: Yes: Conjunctiva Clear Cardiovascular: Yes: Regular Rate and Rhythm, S1, S2 Respiratory: Yes: CTA Bilaterally Gastrointestinal: Yes: Normal Bowel Sounds, Soft. 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
--- NOTE | 2019-10-16 14:55 | DS ---
Physical Examination Vital Signs: Vital Signs Temperature 97.7 F 10/16/19 10:00 Pulse Rate 74 10/16/19 10:00 Respiratory Rate 18 10/16/19 10:00 Blood Pressure 144/72 10/16/19 10:00 O2 Sat by Pulse Oximetry (%) 98 10/16/19 10:00 Findings/Remarks: 89 years old with past medical history HTN, HLD, TIA, Breast Ca s/p L- Mastectomy, peripheral neuropathy presented to hospital with Right flank pain and lower back pain s/p fall 2 days ago. She denied syncopal episode or head trauma. She was walking in the garden with the walker and slipped and fell on her back. after that she had difficulty walking and c/o severe back and R flank pain. She denies fever, chills, nausea, incontinence, chest pain, shortness of breath, vomiting, dizziness, lightheadedness. (1) UTI (urinary tract infection) Assessment/Plan: -UA + nitrites -UC : Microbiology 10/13/19 22:00 Urine Culture - Final Urine - Urine Clean Catch Pseudomonas Aeruginosa Group D Strep Or Entero Coccus -Zosyn transitioned to levaquin 250 mg po for another 7 days -ID consult -Afebrile Problems reviewed: Yes Code(s): N39.0 - URINARY TRACT INFECTION, SITE NOT SPECIFIED (2) Fall Assessment/Plan: -CT chest: atelectasis/fibrotic changes, nonspecific subtle bilateral patchy groundglass opacities, no pleural effusion or pneumothorax, -CT a/p: The liver, gallbladder, pancreas, adrenal glands, and spleen are grossly unremarkable. Bilateral renal cortical scarring. Bilateral renal calcifications, likely vascular. No ureteral calculi or hydronephrosis. No AAA. No evidence for diverticulitis, small bowel obstruction, free fluid, or free air. A floppy cecum located in the left lower quadrant. Urinary bladder is intact. No acute fracture or dislocation -C spine: Cervical spine demonstrate stable alignment. Surgical changes and degenerative changes again noted. No acute cervical spine fracture or dislocation. Right maxillary chronic sinus disease. -CT head: There is cerebral atrophy. Chronic microvascular ischemic changes are noted. Chronic lacunar infarctions. No acute intracranial hemorrhage or acute infarction. No acute fracture -CT lumbar spine: Lumbar spine demonstrates normal alignment. Degenerative changes noted. Moderate chronic appearing compression fracture of L2. No acute lumbar spine fracture or dislocation. -Fall precautions -PT -Physiatry consult Problems reviewed: Yes Code(s): W19.XXXA - UNSPECIFIED FALL, INITIAL ENCOUNTER (3) Intractable low back pain Assessment/Plan: -Pain management consult appreciated -Acetaminophen 1 g Q6h PRN for pain 1-5 -Tramadol 50 mg po Q6H PRN for pain 6-10 -Lidoderm patch -Cyclobenzaprine 10 mg TID PRN Problems reviewed: Yes Code(s): M54.5 - LOW BACK PAIN (4) KENNA (acute kidney injury) Assessment/Plan: -resolved -Cr at baseline -Likely 2/2 to UTI or mild dehydration -Received IVF in ER -D/C IVF, encouraged pO fluids Problems reviewed: Yes Code(s): N17.9 - ACUTE KIDNEY FAILURE, UNSPECIFIED (5) HTN (hypertension) Assessment/Plan: -Resume home meds -Low sodium diet Problems reviewed: Yes Code(s): I10 - ESSENTIAL (PRIMARY) HYPERTENSION Assessment/Plan See problem list Spoke to daughter Radha, who wants me to direct decision making for SNF to the pt. Pt lives in multi-family home, Pt's grand-daughter lives in the same apartment as the pt. It is unclear if she is there at all times to help pt out with ADL's. Constitutional: Yes: Well Nourished, No Distress, Calm Cardiovascular: Yes: Regular Rate and Rhythm Respiratory: Yes: Regular, CTA Bilaterally Gastrointestinal: Yes: Normal Bowel Sounds, Soft Renal/: Yes: WNL Musculoskeletal: Yes: Muscle Weakness Extremities: Yes: WNL Edema: No Peripheral Pulses WNL: Yes Neurological: Yes: Alert, Oriented Psychiatric: Yes: Alert, Oriented Labs: CBC, BMP 10/14/19 07:45 10/14/19 07:45 Discharge Summary Problems reviewed: Yes Reason For Visit: URINARY TRACT INFECTION/INTRACTABLE LOW BACK PAIN Current Active Problems Fall (Acute) Intractable low back pain (Acute) UTI (urinary tract infection) (Acute) Condition: Stable - Instructions Referrals: Ziggy Saunders MD [Primary Care Provider] - Disposition: [facility]FWAY FACILITY - Home Medications Comprehensive Discharge Medication List: Ambulatory Orders Aspirin [Baby Aspirin] 81 mg PO DAILY 02/27/11 Atorvastatin Ca [Lipitor] 20 mg PO HS 07/26/15 Cholecalciferol (Vitamin D3) [Vitamin D3 -] 1,000 unit PO HS 07/26/15 Metoprolol Succinate [Toprol XL -] 12.5 mg PO HS 07/26/15 Albuterol 2.5/Ipratropium 0.5 [Duoneb -] 1 amp NEB QIDR amp 02/07/17 Amlodipine Besylate [Norvasc -] 5 mg PO DAILY #30 tablet 07/16/18 Losartan Potassium [Cozaar -] 50 mg PO DAILY #30 tablet 07/16/18 Acetaminophen [Tylenol .Extra-Strength -] 1,000 mg PO Q6H PRN tablet 10/16/19 Cyclobenzaprine HCl [Flexeril -] 10 mg PO TID PRN tablet 10/16/19 Enoxaparin [Lovenox -] 40 mg SQ DAILY #30 each 10/16/19 Gabapentin [Neurontin -] 100 mg PO TID capsule 10/16/19 Lidocaine 5% Patch [Lidoderm -] 1 patch TP DAILY@1600 patch 10/16/19 Lidocaine Patch Removal [Lidoderm Patch Removal] 1 each MC DAILY@0400 each 10/16/19 levoFLOXacin [Levaquin -] 250 mg PO DAILY@0600 #6 tablet 10/16/19 traMADol HCL [Ultram -] 50 mg PO Q6H PRN tablet 10/16/19 Prescription Drug Monitoring Program (I-STOP) results: I-STOP reviewed and no issues identified
[2019-10-16] MEDS: LIDOCAINE 5% TOPICAL PATCH TP SCH (15:44)
[2019-10-16] MEDS: metoPROLOL SUCCINATE 25 MG TAB.SR.24H (FP) PO SCH (21:48)
[2019-10-16] MEDS: ATORVASTATIN CA 20 MG TABLET (FP) PO SCH (21:48)
[2019-10-16] MEDS: CHOLECALCIFEROL (VIT D3) 1,000 UNIT (25 MCG) TABLET PO SCH (21:49)
[2019-10-17] MEDS: GABAPENTIN 100 MG CAPSULE PO SCH ×3 (05:35→21:33)
[2019-10-17] MEDS: LIDOCAINE PATCH REMOVAL MC SCH (05:35)
[2019-10-17] MEDS: ALBUTEROL SO4 2.5/IPRATROPIUM 0.5 INH SOL 3 ML VIAL.NEB. NEB SCH ×4 (07:30→20:25)
[2019-10-17] MEDS: ENOXAPARIN NA (PORCINE) 40 MG/0.4 ML DISP.SYRIN SQ SCH (09:06)
[2019-10-17] MEDS: ASPIRIN 81 MG CHEWABLE TABLETS PO SCH (09:07)
[2019-10-17] MEDS: amLODIPine BESYLATE 5 MG TABLET (FP) PO SCH (09:07)
[2019-10-17] MEDS: LOSARTAN POTASSIUM 50 MG TABLET (FP) PO SCH (09:07)
[2019-10-17] MEDS ORDERED: MAGNESIUM HYDROX 2400MG/30ML ORAL SUSPENSION 30 ML CUP PO ONE (10:51)
[2019-10-17] MEDS ORDERED: BISACODYL 5 MG TABLET.DR (FP) PO ONE (10:51)
--- NOTE | 2019-10-17 13:36 | PN ---
Progress Note (short form) - Note Progress Note: EVENTS AND NOTES REVIEWED AWAITING DISCHARGE TO SNF
[2019-10-17] MEDS: LIDOCAINE 5% TOPICAL PATCH TP SCH (16:23)
[2019-10-17] MEDS: CHOLECALCIFEROL (VIT D3) 1,000 UNIT (25 MCG) TABLET PO SCH (21:33)
[2019-10-17] MEDS: metoPROLOL SUCCINATE 25 MG TAB.SR.24H (FP) PO SCH (21:33)
[2019-10-17] MEDS: traMADol HCL 50 MG TABLET PO PRN (21:34)
[2019-10-17] MEDS: ATORVASTATIN CA 20 MG TABLET (FP) PO SCH (21:35)
[2019-10-18] MEDS: LIDOCAINE PATCH REMOVAL MC SCH (03:26)
[2019-10-18] MEDS: GABAPENTIN 100 MG CAPSULE PO SCH ×3 (05:39→21:37)
--- NOTE | 2019-10-18 07:39 | PN ---
Progress Note (short form) - Note Progress Note: AWAKE ALERT DENIES COMPLAINTS OF CHEST PAIN/SOB READY FOR DISCHARGE TO [facility] AWAIT AUTH
[2019-10-18] MEDS: ALBUTEROL SO4 2.5/IPRATROPIUM 0.5 INH SOL 3 ML VIAL.NEB. NEB SCH ×4 (07:45→20:30)
[2019-10-18] MEDS: LOSARTAN POTASSIUM 50 MG TABLET (FP) PO SCH (09:51)
[2019-10-18] MEDS: ASPIRIN 81 MG CHEWABLE TABLETS PO SCH (09:51)
[2019-10-18] MEDS: ENOXAPARIN NA (PORCINE) 40 MG/0.4 ML DISP.SYRIN SQ SCH (09:52)
[2019-10-18] MEDS: amLODIPine BESYLATE 5 MG TABLET (FP) PO SCH (09:52)
[2019-10-18] MEDS: CYCLOBENZAPRINE HCL 10 MG TABLET (FP) PO PRN ×2 (09:53→18:46)
[2019-10-18] MEDS: LIDOCAINE 5% TOPICAL PATCH TP SCH (17:50)
[2019-10-18] MEDS: metoPROLOL SUCCINATE 25 MG TAB.SR.24H (FP) PO SCH (21:37)
[2019-10-18] MEDS: ATORVASTATIN CA 20 MG TABLET (FP) PO SCH (21:37)
[2019-10-18] MEDS: CHOLECALCIFEROL (VIT D3) 1,000 UNIT (25 MCG) TABLET PO SCH (21:37)
[2019-10-19] MEDS: LIDOCAINE PATCH REMOVAL MC SCH (04:44)
[2019-10-19] MEDS: GABAPENTIN 100 MG CAPSULE PO SCH ×3 (05:21→21:32)
[2019-10-19] MEDS: ALBUTEROL SO4 2.5/IPRATROPIUM 0.5 INH SOL 3 ML VIAL.NEB. NEB SCH ×4 (09:05→19:55)
[2019-10-19] MEDS: ASPIRIN 81 MG CHEWABLE TABLETS PO SCH (09:11)
[2019-10-19] MEDS: traMADol HCL 50 MG TABLET PO PRN ×2 (09:11→21:31)
[2019-10-19] MEDS: ENOXAPARIN NA (PORCINE) 40 MG/0.4 ML DISP.SYRIN SQ SCH (09:11)
[2019-10-19] MEDS: amLODIPine BESYLATE 5 MG TABLET (FP) PO SCH ×2 (09:12→11:27)
--- NOTE | 2019-10-19 11:18 | DS ---
Physical Examination Vital Signs: Vital Signs Temperature 97.6 F 10/19/19 09:00 Pulse Rate 64 10/19/19 09:00 Respiratory Rate 18 10/19/19 09:00 Blood Pressure 109/52 L 10/19/19 09:00 O2 Sat by Pulse Oximetry (%) 98 10/19/19 09:00 Findings/Remarks: 89 years old with past medical history HTN, HLD, TIA, Breast Ca s/p L- Mastectomy, peripheral neuropathy presented to hospital with Right flank pain and lower back pain s/p fall 2 days ago. She denied syncopal episode or head trauma. She was walking in the garden with the walker and slipped and fell on her back. after that she had difficulty walking and c/o severe back and R flank pain. She denies fever, chills, nausea, incontinence, chest pain, shortness of breath, vomiting, dizziness, lightheadedness. (1) UTI (urinary tract infection) Assessment/Plan: -UA + nitrites -UC : Microbiology 10/13/19 22:00 Urine Culture - Final Urine - Urine Clean Catch Pseudomonas Aeruginosa Group D Strep Or Entero Coccus -Zosyn transitioned to levaquin 250 mg po for another 7 days -ID consult -Afebrile Problems reviewed: Yes Code(s): N39.0 - URINARY TRACT INFECTION, SITE NOT SPECIFIED (2) Fall Assessment/Plan: -CT chest: atelectasis/fibrotic changes, nonspecific subtle bilateral patchy groundglass opacities, no pleural effusion or pneumothorax, -CT a/p: The liver, gallbladder, pancreas, adrenal glands, and spleen are grossly unremarkable. Bilateral renal cortical scarring. Bilateral renal calcifications, likely vascular. No ureteral calculi or hydronephrosis. No AAA. No evidence for diverticulitis, small bowel obstruction, free fluid, or free air. A floppy cecum located in the left lower quadrant. Urinary bladder is intact. No acute fracture or dislocation -C spine: Cervical spine demonstrate stable alignment. Surgical changes and degenerative changes again noted. No acute cervical spine fracture or dislocation. Right maxillary chronic sinus disease. -CT head: There is cerebral atrophy. Chronic microvascular ischemic changes are noted. Chronic lacunar infarctions. No acute intracranial hemorrhage or acute infarction. No acute fracture -CT lumbar spine: Lumbar spine demonstrates normal alignment. Degenerative changes noted. Moderate chronic appearing compression fracture of L2. No acute lumbar spine fracture or dislocation. -Fall precautions -PT -Physiatry consult Problems reviewed: Yes Code(s): W19.XXXA - UNSPECIFIED FALL, INITIAL ENCOUNTER (3) Intractable low back pain Assessment/Plan: -Pain management consult appreciated -Acetaminophen 1 g Q6h PRN for pain 1-5 -Tramadol 50 mg po Q6H PRN for pain 6-10 -Lidoderm patch -Cyclobenzaprine 10 mg TID PRN Problems reviewed: Yes Code(s): M54.5 - LOW BACK PAIN (4) KENNA (acute kidney injury) Assessment/Plan: -resolved -Cr at baseline -Likely 2/2 to UTI or mild dehydration -Received IVF in ER -D/C IVF, encouraged pO fluids Problems reviewed: Yes Code(s): N17.9 - ACUTE KIDNEY FAILURE, UNSPECIFIED (5) HTN (hypertension) Assessment/Plan: -Resume home meds -Low sodium diet Problems reviewed: Yes Code(s): I10 - ESSENTIAL (PRIMARY) HYPERTENSION Constitutional: Yes: Well Nourished, No Distress, Calm Cardiovascular: Yes: Regular Rate and Rhythm Respiratory: Yes: Regular, CTA Bilaterally Gastrointestinal: Yes: Normal Bowel Sounds Renal/: Yes: WNL Musculoskeletal: Yes: WNL Extremities: Yes: WNL Edema: No Peripheral Pulses WNL: Yes Neurological: Yes: Alert, Oriented Psychiatric: Yes: Alert, Oriented Labs: CBC, BMP 10/14/19 07:45 10/14/19 07:45 Discharge Summary Problems reviewed: Yes Reason For Visit: URINARY TRACT INFECTION/INTRACTABLE LOW BACK PAIN Current Active Problems Fall (Acute) Intractable low back pain (Acute) UTI (urinary tract infection) (Acute) Condition: Stable - Instructions Referrals: Ziggy Saunders MD [Primary Care Provider] - Disposition: [facility] - Home Medications Comprehensive Discharge Medication List: Ambulatory Orders Aspirin [Baby Aspirin] 81 mg PO DAILY 02/27/11 Atorvastatin Ca [Lipitor] 20 mg PO HS 07/26/15 Cholecalciferol (Vitamin D3) [Vitamin D3 -] 1,000 unit PO HS 07/26/15 Metoprolol Succinate [Toprol XL -] 12.5 mg PO HS 07/26/15 Albuterol 2.5/Ipratropium 0.5 [Duoneb -] 1 amp NEB QIDR amp 02/07/17 Amlodipine Besylate [Norvasc -] 5 mg PO DAILY #30 tablet 07/16/18 Losartan Potassium [Cozaar -] 50 mg PO DAILY #30 tablet 07/16/18 Acetaminophen [Tylenol .Extra-Strength -] 1,000 mg PO Q6H PRN tablet 10/16/19 Cyclobenzaprine HCl [Flexeril -] 10 mg PO TID PRN tablet 10/16/19 Enoxaparin [Lovenox -] 40 mg SQ DAILY #30 each 10/16/19 Gabapentin [Neurontin -] 100 mg PO TID capsule 10/16/19 Lidocaine 5% Patch [Lidoderm -] 1 patch TP DAILY@1600 patch 10/16/19 Lidocaine Patch Removal [Lidoderm Patch Removal] 1 each MC DAILY@0400 each 10/16/19 levoFLOXacin [Levaquin -] 250 mg PO DAILY@0600 #6 tablet 10/16/19 traMADol HCL [Ultram -] 50 mg PO Q6H PRN tablet 10/16/19 Prescription Drug Monitoring Program (I-STOP) results: I-STOP reviewed and no issues identified
[2019-10-19] MEDS: LOSARTAN POTASSIUM 50 MG TABLET (FP) PO SCH (11:27)
[2019-10-19] MEDS: LIDOCAINE 5% TOPICAL PATCH TP SCH (16:42)
[2019-10-19] MEDS: ATORVASTATIN CA 20 MG TABLET (FP) PO SCH (21:32)
[2019-10-19] MEDS: CHOLECALCIFEROL (VIT D3) 1,000 UNIT (25 MCG) TABLET PO SCH (21:32)
[2019-10-19] MEDS: metoPROLOL SUCCINATE 25 MG TAB.SR.24H (FP) PO SCH (21:32)
[2019-10-19] MEDS: CYCLOBENZAPRINE HCL 10 MG TABLET (FP) PO PRN (21:33)
[2019-10-19] MEDS ORDERED: PT OWN MED DRAWER 7, Y5N ONE (22:42)
[2019-10-20] MEDS: LIDOCAINE PATCH REMOVAL MC SCH (04:26)
[2019-10-20] MEDS: GABAPENTIN 100 MG CAPSULE PO SCH ×3 (05:46→21:11)
[2019-10-20] MEDS: LOSARTAN POTASSIUM 50 MG TABLET (FP) PO SCH (10:18)
[2019-10-20] MEDS: amLODIPine BESYLATE 5 MG TABLET (FP) PO SCH (10:18)
[2019-10-20] MEDS: ASPIRIN 81 MG CHEWABLE TABLETS PO SCH (10:18)
--- NOTE | 2019-10-20 10:27 | PN ---
Progress Note, Physician Chief Complaint: Mechanical Fall UTI History of Present Illness: NAD unable to turn due to pain During exam severe pain Right mid abd CT chest: atelectasis/fibrotic changes, nonspecific subtle bilateral patchy groundglass opacities, no pleural effusion or pneumothorax, CT a/p: The liver, gallbladder, pancreas, adrenal glands, and spleen are grossly unremarkable. Bilateral renal cortical scarring. Bilateral renal calcifications, likely vascular. No ureteral calculi or hydronephrosis. No AAA. No evidence for diverticulitis, small bowel obstruction, free fluid, or free air. A floppy cecum located in the left lower quadrant. Urinary bladder is intact. No acute fracture or dislocation C spine: Cervical spine demonstrate stable alignment. Surgical changes and degenerative changes again noted. No acute cervical spine fracture or dislocation. Right maxillary chronic sinus disease. CT head: There is cerebral atrophy. Chronic microvascular ischemic changes are noted. Chronic lacunar infarctions. No acute intracranial hemorrhage or acute infarction. No acute fracture CT lumbar spine: Lumbar spine demonstrates normal alignment. Degenerative changes noted. Moderate chronic appearing compression fracture of L2. No acute lumbar spine fracture or dislocation. Pain is improved mild pain on palpation - Current Medication List Current Medications: Active Medications Acetaminophen (Tylenol -) 1,000 mg PO Q6H PRN PRN Reason: PAIN LEVEL 1-5 Last Admin: 10/15/19 09:39 Dose: 1,000 mg Documented by: Amlodipine Besylate (Norvasc -) 5 mg PO DAILY [facility] Last Admin: 10/20/19 10:18 Dose: 5 mg Documented by: Aspirin (Asa -) 81 mg PO DAILY [facility] Last Admin: 10/20/19 10:18 Dose: 81 mg Documented by: Atorvastatin Calcium (Lipitor -) 20 mg PO [facility] Last Admin: 10/19/19 21:32 Dose: 20 mg Documented by: Cholecalciferol (Vitamin D3 -) 1,000 unit PO [facility] Last Admin: 10/19/19 21:32 Dose: 1,000 unit Documented by: Cyclobenzaprine HCl (Flexeril -) 10 mg PO TID PRN PRN Reason: MUSCLE SPASMS Last Admin: 10/19/19 21:33 Dose: 10 mg Documented by: Gabapentin (Neurontin -) 100 mg PO TID [facility] Last Admin: 10/20/19 05:46 Dose: 100 mg Documented by: Levofloxacin (Levaquin -) 250 mg PO DAILY@0600 [facility] Last Admin: 10/20/19 05:46 Dose: 250 mg Documented by: Lidocaine (Lidoderm Patch -) 1 patch TP DAILY@1600 [facility] Last Admin: 10/19/19 16:42 Dose: 1 patch Documented by: Losartan Potassium (Cozaar -) 50 mg PO DAILY [facility] Last Admin: 10/20/19 10:18 Dose: 50 mg Documented by: Metoprolol Succinate (Toprol Xl -) 12.5 mg PO HS [facility] Last Admin: 10/19/19 21:32 Dose: 12.5 mg Documented by: Miscellaneous (Lidoderm Patch Removal) 1 each MC DAILY@0400 [facility] Last Admin: 10/20/19 04:26 Dose: 1 each Documented by: Tramadol HCl (Ultram -) 50 mg PO Q6H PRN PRN Reason: PAIN LEVEL 6-10 Last Admin: 10/19/19 21:31 Dose: 50 mg Documented by: - Objective Vital Signs: Vital Signs Temperature 98.0 F 10/20/19 04:00 Pulse Rate 65 10/20/19 04:00 Respiratory Rate 18 10/20/19 04:00 Blood Pressure 124/60 10/20/19 04:00 O2 Sat by Pulse Oximetry (%) 94 L 10/20/19 04:00 Constitutional: Yes: Well Nourished, No Distress, Calm Cardiovascular: Yes: Regular Rate and Rhythm Respiratory: Yes: Regular, CTA Bilaterally Gastrointestinal: Yes: Normal Bowel Sounds, Soft Genitourinary: Yes: WNL Musculoskeletal: Yes: Back Pain, Muscle Weakness Extremities: Yes: WNL Edema: No Peripheral Pulses WNL: Yes Neurological: Yes: Alert, Oriented Psychiatric: Yes: Alert, Oriented Labs: CBC, BMP 10/14/19 07:45 10/14/19 07:45 Problem List - Problems (1) UTI (urinary tract infection) Assessment/Plan: -UA + nitrites -UC : Microbiology 10/13/19 22:00 Urine Culture - Final Urine - Urine Clean Catch Pseudomonas Aeruginosa Group D Strep Or Entero Coccus -Zosyn transitioned to levaquin 250 mg po for another 7 days -ID consult -Afebrile Problems reviewed: Yes Code(s): N39.0 - URINARY TRACT INFECTION, SITE NOT SPECIFIED (2) Fall Assessment/Plan: -CT chest: atelectasis/fibrotic changes, nonspecific subtle bilateral patchy groundglass opacities, no pleural effusion or pneumothorax, -CT a/p: The liver, gallbladder, pancreas, adrenal glands, and spleen are grossly unremarkable. Bilateral renal cortical scarring. Bilateral renal calcifications, likely vascular. No ureteral calculi or hydronephrosis. No AAA. No evidence for diverticulitis, small bowel obstruction, free fluid, or free air. A floppy cecum located in the left lower quadrant. Urinary bladder is intact. No acute fracture or dislocation -C spine: Cervical spine demonstrate stable alignment. Surgical changes and degenerative changes again noted. No acute cervical spine fracture or dislocation. Right maxillary chronic sinus disease. -CT head: There is cerebral atrophy. Chronic microvascular ischemic changes are noted. Chronic lacunar infarctions. No acute intracranial hemorrhage or acute infarction. No acute fracture -CT lumbar spine: Lumbar spine demonstrates normal alignment. Degenerative changes noted. Moderate chronic appearing compression fracture of L2. No acute lumbar spine fracture or dislocation. -Fall precautions -PT -Physiatry consult Problems reviewed: Yes Code(s): W19.XXXA - UNSPECIFIED FALL, INITIAL ENCOUNTER (3) Intractable low back pain Assessment/Plan: -Pain management consult appreciated -Acetaminophen 1 g Q6h PRN for pain 1-5 -Tramadol 50 mg po Q6H PRN for pain 6-10 -Lidoderm patch -Cyclobenzaprine 10 mg TID PRN Problems reviewed: Yes Code(s): M54.5 - LOW BACK PAIN (4) KENNA (acute kidney injury) Assessment/Plan: -resolved -Cr at baseline -Likely 2/2 to UTI or mild dehydration -Received IVF in ER -D/C IVF, encouraged pO fluids Problems reviewed: Yes Code(s): N17.9 - ACUTE KIDNEY FAILURE, UNSPECIFIED (5) HTN (hypertension) Assessment/Plan: -Resume home meds -Low sodium diet Problems reviewed: Yes Code(s): I10 - ESSENTIAL (PRIMARY) HYPERTENSION Assessment/Plan See problem list Spoke to Dr Gopal Blount MD at [facility] for peer to peer, who explained that pt was denied because she is close to her baseline. As per , pt walked 20 ft x 2, which I clarified was not what's documented by PT, and pt is no where near her baseline. Pt is self ambulatory at home with walker. Pt walked 20 ft x 1 with shuffling gait and close contact guard of 2 during PT assessment. I explained that pt has 10 stairs in the house that she uses, MD wasn't aware of that, wants PT to perform stair assessment. MD Blount instructed that documentation be faxed before 9 AM tomorrow. I informed DC transportation planner of my conversation with Antonio. Will get PT to evaluate stairs and fax documentation appropriately.
[2019-10-20] MEDS: LIDOCAINE 5% TOPICAL PATCH TP SCH (16:36)
[2019-10-20] MEDS: ATORVASTATIN CA 20 MG TABLET (FP) PO SCH (21:10)
[2019-10-20] MEDS: metoPROLOL SUCCINATE 25 MG TAB.SR.24H (FP) PO SCH (21:11)
[2019-10-20] MEDS: traMADol HCL 50 MG TABLET PO PRN (21:11)
[2019-10-20] MEDS: CHOLECALCIFEROL (VIT D3) 1,000 UNIT (25 MCG) TABLET PO SCH (21:11)
[2019-10-20] MEDS: LACTOBACILLUS ACIDOPHILUS 1 TABLET PO SCH (21:16)
[2019-10-21] MEDS: LIDOCAINE PATCH REMOVAL MC SCH (04:32)
[2019-10-21 05:27] VITALS: TEMP 98.1
[2019-10-21] MEDS: GABAPENTIN 100 MG CAPSULE PO SCH (05:51)
[2019-10-21] MEDS ORDERED: FENTANYL PATCH WASTE TD PRN (09:43)
--- NOTE | 2019-10-21 09:44 | DS ---
Physical Examination Vital Signs: Vital Signs Temperature 98.1 F 10/21/19 05:25 Pulse Rate 67 10/21/19 05:25 Respiratory Rate 18 10/21/19 05:25 Blood Pressure 138/64 10/21/19 05:25 O2 Sat by Pulse Oximetry (%) 93 L 10/21/19 05:25 Cardiovascular: Yes: S1, S2 Respiratory: Yes: Regular, CTA Bilaterally Gastrointestinal: Yes: Normal Bowel Sounds, Soft Edema: No Labs: CBC, BMP 10/14/19 07:45 10/14/19 07:45 Discharge Summary Problems reviewed: Yes Reason For Visit: URINARY TRACT INFECTION/INTRACTABLE LOW BACK PAIN Current Active Problems Fall (Acute) Intractable low back pain (Acute) UTI (urinary tract infection) (Acute) Hospital Course: 89 years old with past medical history HTN, HLD, TIA, Breast Ca s/p L- Mastect dat, peripheral neuropathy presented to hospital with Right flank pain and lower back pain s/p fall 2 days ago. She denied syncopal episode or head trauma. She was walking in the garden with the walker and slipped and fell on her back. after that she had difficulty walking and c/o severe back and R flank pain. She denies fever, chills, nausea, incontinence, chest pain, shortness of breath, vomiting, dizziness, lightheadedness. (1) UTI (urinary tract infection) Assessment/Plan: -UA + nitrites -UC : Microbiology 10/13/19 22:00 Urine Culture - Final Urine - Urine Clean Catch Pseudomonas Aeruginosa Group D Strep Or Entero Coccus -Zosyn transitioned to levaquin 250 mg po for another 7 days -ID consult -Afebrile Problems reviewed: Yes Code(s): N39.0 - URINARY TRACT INFECTION, SITE NOT SPECIFIED (2) Fall Assessment/Plan: -CT chest: atelectasis/fibrotic changes, nonspecific subtle bilateral patchy groundglass opacities, no pleural effusion or pneumothorax, -CT a/p: The liver, gallbladder, pancreas, adrenal glands, and spleen are grossly unremarkable. Bilateral renal cortical scarring. Bilateral renal calcifications, likely vascular. No ureteral calculi or hydronephrosis. No AAA. No evidence for diverticulitis, small bowel obstruction, free fluid, or free air. A floppy cecum located in the left lower quadrant. Urinary bladder is intact. No acute fracture or dislocation -C spine: Cervical spine demonstrate stable alignment. Surgical changes and degenerative changes again noted. No acute cervical spine fracture or dislocation. Right maxillary chronic sinus disease. -CT head: There is cerebral atrophy. Chronic microvascular ischemic changes are noted. Chronic lacunar infarctions. No acute intracranial hemorrhage or acute infarction. No acute fracture -CT lumbar spine: Lumbar spine demonstrates normal alignment. Degenerative changes noted. Moderate chronic appearing compression fracture of L2. No acute lumbar spine fracture or dislocation. -Fall precautions -PT -Physiatry consult Problems reviewed: Yes Code(s): W19.XXXA - UNSPECIFIED FALL, INITIAL ENCOUNTER (3) Intractable low back pain Assessment/Plan: -Pain management consult appreciated -Acetaminophen 1 g Q6h PRN for pain 1-5 -Tramadol 50 mg po Q6H PRN for pain 6-10 -Lidoderm patch -Cyclobenzaprine 10 mg TID PRN Problems reviewed: Yes Code(s): M54.5 - LOW BACK PAIN (4) KENNA (acute kidney injury) Assessment/Plan: -resolved -Cr at baseline -Likely 2/2 to UTI or mild dehydration -Received IVF in ER -D/C IVF, encouraged pO fluids Condition: Stable - Instructions Referrals: Ziggy Saunders MD [Primary Care Provider] - Disposition: CUSTODIAL FACILITY - Home Medications Comprehensive Discharge Medication List: Ambulatory Orders Aspirin [Baby Aspirin] 81 mg PO DAILY 02/27/11 Atorvastatin Ca [Lipitor] 20 mg PO HS 07/26/15 Cholecalciferol (Vitamin D3) [Vitamin D3 -] 1,000 unit PO HS 07/26/15 Metoprolol Succinate [Toprol XL -] 12.5 mg PO HS 07/26/15 Albuterol 2.5/Ipratropium 0.5 [Duoneb -] 1 amp NEB QIDR amp 02/07/17 Amlodipine Besylate [Norvasc -] 5 mg PO DAILY #30 tablet 07/16/18 Losartan Potassium [Cozaar -] 50 mg PO DAILY #30 tablet 07/16/18 Acetaminophen [Tylenol .Extra-Strength -] 1,000 mg PO Q6H PRN tablet 10/16/19 Cyclobenzaprine HCl [Flexeril -] 10 mg PO TID PRN tablet 10/16/19 Enoxaparin [Lovenox -] 40 mg SQ DAILY #30 each 10/16/19 Gabapentin [Neurontin -] 100 mg PO TID capsule 10/16/19 Lidocaine 5% Patch [Lidoderm -] 1 patch TP DAILY@1600 patch 10/16/19 Lidocaine Patch Removal [Lidoderm Patch Removal] 1 each MC DAILY@0400 each 10/16/19 levoFLOXacin [Levaquin -] 250 mg PO DAILY@0600 #6 tablet 10/16/19 traMADol HCL [Ultram -] 50 mg PO Q6H PRN tablet 10/16/19
[2019-10-21] MEDS ORDERED: fentaNYL 25mcg/hr PATCH.TD72 TD SCH (09:45)
[2019-10-21] MEDS: CYCLOBENZAPRINE HCL 10 MG TABLET (FP) PO PRN (10:18)
[2019-10-21] MEDS: amLODIPine BESYLATE 5 MG TABLET (FP) PO SCH (10:18)
[2019-10-21] MEDS: LACTOBACILLUS ACIDOPHILUS 1 TABLET PO SCH (10:18)
[2019-10-21] MEDS: ASPIRIN 81 MG CHEWABLE TABLETS PO SCH (10:19)
[2019-10-21] MEDS: LOSARTAN POTASSIUM 50 MG TABLET (FP) PO SCH (10:19)
[2019-10-21 11:41] VITALS: BP 139/65; PULSE 63
== END 2019-10-21 13:50 | DRG 690 ==
LOC: JER 19:23 → JERBED 10-13 00:25 → J6WEST-2 10-13 19:21 → J7W 10-15 11:33
PROVIDERS: ADMIT Internal Medicine; ATTEND Family Medicine
DX: N39.0 Urinary tract infection, site not specified (principal); N17.9 Acute kidney failure, unspecified; M48.56XA Collapsed vertebra, not elsewhere classified, lumbar region, initial encounter for fracture; J98.11 Atelectasis; I10 Essential (primary) hypertension; E78.5 Hyperlipidemia, unspecified; E86.0 Dehydration; N18.9 Chronic kidney disease, unspecified; M54.5 Low back pain; Z85.3 Personal history of malignant neoplasm of breast; G62.9 Polyneuropathy, unspecified; R26.9 Unspecified abnormalities of gait and mobility
CPT/HCPCS: 36415; 70450-TC; 71045-TC-FY; 71250-TC; 72125-TC; 72131-TC; 74176-TC; 80053; 81003; 83735; 84443; 85025; 87077; 87086; 87186; 93005; 93010; 94010; 94640; 97116-GP; 97162-GP; 99285-25; U0003

== ENCOUNTER 2020-11-04 21:18 | Inpatient (IN) | payer OTHER ==
[2020-11-04 22:31] VITALS: BMI 26.9
[2020-11-04 23:17] LABS: EOS % 0.1 % (0-4.5); HEMATOCRIT 41.6 % (32.4-45.2); HEMOGLOBIN 14.3 GM/dL (10.7-15.3); LYMPH % 11.5 % (8-40); MCH 31.2 pg (25.7-33.7); MCHC 34.3 g/dl (32.0-36.0); MEAN CELL VOLUME 90.8 fl (80-96); MEAN PLT VOLUME 7.4 fl (7.5-11.1); MONO % 6.6 % (3.8-10.2); NEUT % 80.8 % (42.8-82.8); PLATELET COUNT 171 10^3/uL (134-434); RBC 4.58 M/mm3 (3.60-5.2); RDW 13.7 % (11.6-15.6)
[2020-11-04 23:25] LABS: INR 1.11 (0.83-1.09); PROTHROMBIN TIME (PATIENT) 13.4 SEC (9.7-13.0)
[2020-11-04 23:28] LABS: ACTIVATED PTT 26.5 SECONDS (25.2-36.5)
[2020-11-04 23:37] LABS: CHLORIDE 106 mmol/L (98-107); SODIUM 139 mmol/L (136-145)
[2020-11-04 23:39] LABS: CALCIUM 9.3 mg/dL (8.5-10.1)
[2020-11-04 23:40] LABS: ALBUMIN 3.8 g/dl (3.4-5.0); ANION GAP 8 MMOL/L (8-16); BLOOD UREA NITROGEN 17.6 mg/dL (7-18); CO2 25 mmol/L (21-32); GLUCOSE,RANDOM 93 mg/dL (74-106)
[2020-11-04 23:43] LABS: CREATININE 1.5 mg/dL (0.55-1.3); SGOT/AST 26 U/L (15-37); SGPT/ALT 21 U/L (13-61)
[2020-11-04 23:44] LABS: BILIRUBIN,TOTAL 0.6 mg/dL (0.2-1)
[2020-11-04 23:46] LABS: ALK PHOS 101 U/L (45-117)
[2020-11-04] MEDS ORDERED: SODIUM CHLORIDE 0.9% 500 ML INFUS.BAG IV ONE (23:49)
[2020-11-05 00:03] LABS: URINE APPEARANCE Clear; URINE BILIRUBIN Negative (NEGATIVE); URINE COLOR Yellow; URINE GLUCOSE (UA) Negative (NEGATIVE); URINE KETONE Negative (NEGATIVE); URINE LEUK ESTERASE 1+ (NEGATIVE); URINE NITRITE Positive (NEGATIVE); URINE PROTEIN 3+ (NEGATIVE); URINE UROBILINOGEN 0.2 mg/dL (0.2-1.0)
[2020-11-05] MEDS ORDERED: CEFTRIAXONE 1 GM in DEXTROSE 5%-WATER - 50 ML IVPB ONE (00:10)
[2020-11-05] MEDS ORDERED: CEFTRIAXONE 1 GM/50 ML BAG ONE (00:18)
[2020-11-05] MEDS ORDERED: LOSARTAN POTASSIUM 50 MG TABLET PO ONE (00:28)
[2020-11-05] MEDS ORDERED: ASPIRIN 81 MG CHEWABLE TABLETS PO ONE (00:30)
[2020-11-05] MEDS ORDERED: LOSARTAN POTASSIUM 50 MG TABLET ONE ×2 (00:30→10:05)
[2020-11-05] MEDS ORDERED: ASPIRIN 81 MG CHEWABLE TABLETS ONE (00:37)
[2020-11-05] MEDS ORDERED: HEPARIN NA (PORCINE) 5,000 UNITS/ML 1ML VIAL IVPUSH PRN ×2 (01:14)
[2020-11-05] MEDS ORDERED: HEPARIN - 25,000 UNIT in SODIUM CHLORIDE 495 ML IV SCH (01:15)
[2020-11-05] MEDS ORDERED: HEPARIN NA (PORCINE) 5,000 UNITS/ML 1ML VIAL ONE (03:31)
[2020-11-05] MEDS ORDERED: POLYETHYLENE GLYCOL 3350 119 GM BTL PO PRN (04:40)
[2020-11-05] MEDS ORDERED: ALBUTEROL SO4 2.5/IPRATROPIUM 0.5 INH SOL 3 ML VIAL.NEB. NEB PRN (04:52)
[2020-11-05] MEDS ORDERED: ACETAMINOPHEN 500 MG TABLET (FP) PO PRN (04:52)
[2020-11-05] MEDS ORDERED: traMADol HCL 50 MG TABLET PO PRN ×3 (04:52→06:13)
[2020-11-05] MEDS ORDERED: CYCLOBENZAPRINE HCL 10 MG TABLET (FP) PO PRN (04:52)
[2020-11-05] MEDS: ACETAMINOPHEN 325 MG TABLET (FP) PO PRN ×2 (05:12→18:40)
[2020-11-05 05:53] LABS: BASO % 1.3 % (0-2.0); EOS % 1.4 % (0-4.5); HEMATOCRIT 37.6 % (32.4-45.2); HEMOGLOBIN 13.1 GM/dL (10.7-15.3); LYMPH % 28.6 % (8-40); MCH 31.8 pg (25.7-33.7); MCHC 34.7 g/dl (32.0-36.0); MEAN CELL VOLUME 91.5 fl (80-96); MEAN PLT VOLUME 7.4 fl (7.5-11.1); NEUT % 58.7 % (42.8-82.8); PLATELET COUNT 165 10^3/uL (134-434); RBC 4.11 M/mm3 (3.60-5.2); WHITE BLOOD COUNT 8.4 K/mm3 (4.0-10.0)
[2020-11-05] MEDS ORDERED: DOCUSATE SODIUM 100 MG CAPSULE (FP) PO SCH (10:00)
[2020-11-05] MEDS ORDERED: amLODIPine BESYLATE 5 MG TABLET (FP) PO SCH (10:00)
[2020-11-05] MEDS ORDERED: LOSARTAN POTASSIUM 50 MG TABLET PO SCH (10:00)
[2020-11-05] MEDS ORDERED: DOCUSATE SODIUM 100 MG CAPSULE (FP) PO ONE (10:04)
[2020-11-05] MEDS ORDERED: amLODIPine BESYLATE 5 MG TABLET (FP) ONE (10:06)
[2020-11-05] MEDS ORDERED: ATORVASTATIN CA 80 MG TABLET (FP) PO ONE (10:59)
[2020-11-05] MEDS ORDERED: ATORVASTATIN CA 80 MG TABLET (FP) ONE (11:01)
[2020-11-05] MEDS ORDERED: CLOPIDOGREL BISULFATE 300 MG TABLET PO ONE (13:41)
[2020-11-05] MEDS ORDERED: CLOPIDOGREL BISULFATE 300 MG TABLET ONE (14:12)
[2020-11-05] MEDS ORDERED: LIDOCAINE 5% TOPICAL PATCH TP SCH (16:00)
[2020-11-05 16:54] VITALS: TEMP 98
[2020-11-05] MEDS ORDERED: LIDOCAINE 5% TOPICAL PATCH ONE (17:46)
[2020-11-05] MEDS ORDERED: ACETAMINOPHEN 325 MG TABLET (FP) ONE (18:35)
[2020-11-05] MEDS ORDERED: ATORVASTATIN CA 20 MG TABLET (FP) PO SCH (22:00)
[2020-11-05] MEDS ORDERED: metoPROLOL SUCCINATE 25 MG TAB.SR.24H (FP) PO SCH (22:00)
[2020-11-05] MEDS ORDERED: CHOLECALCIFEROL (VIT D3) 1,000 UNIT (25 MCG) TABLET PO SCH (22:00)
[2020-11-05] MEDS ORDERED: LIDOCAINE PATCH REMOVAL MC SCH (22:00)
[2020-11-06] MEDS ORDERED: CEFTRIAXONE 1 GM in DEXTROSE 5%-WATER - 50 ML IVPB SCH
[2020-11-06 03:53] VITALS: BP 195/86
[2020-11-06 05:29] VITALS: PULSE 72
[2020-11-06] MEDS ORDERED: LIDOCAINE PATCH REMOVAL TD SCH (22:00)
== END 2020-11-06 05:20 | disposition short-term general hospital (02) | DRG 281 ==
LOC: JER 21:18 → JERBED 11-05 00:16
PROVIDERS: ADMIT Internal Medicine; ATTEND Family Medicine
DX: I21.4 Non-ST elevation (NSTEMI) myocardial infarction (principal); N17.9 Acute kidney failure, unspecified; N39.0 Urinary tract infection, site not specified; I10 Essential (primary) hypertension; E78.5 Hyperlipidemia, unspecified; Z86.73 Personal history of transient ischemic attack (TIA), and cerebral infarction without residual deficits; G62.9 Polyneuropathy, unspecified; Z85.3 Personal history of malignant neoplasm of breast; R51.9 Headache, unspecified
CPT/HCPCS: 36415; 70450-TC; 72125-TC; 80053; 81003; 82550; 82553; 83735; 84484; 85025; 85027; 85610; 85730; 87086; 87186; 93005; 93010; 99285-25; C9803; J1644; U0003; U0005